=== PATIENT | male | born 1990 | race Two or more races ===

== ENCOUNTER → 2020-08-22 13:16 | Outpatient (BNVA) | payer OTHER, SELFPAY | PROVIDERS: PCP Internal Medicine; Referring Provider Nurse Practitioner Family; Visit Provider Internal Medicine Endocrinology, Diabetes & Metabolism | DX: E89.0 Postprocedural hypothyroidism (principal); E05.00 Thyrotoxicosis with diffuse goiter without thyrotoxic crisis or storm; E21.3 Hyperparathyroidism, unspecified; E66.9 Obesity, unspecified; Z68.34 Body mass index [BMI] 34.0-34.9, adult; L83 Acanthosis nigricans; Z79.899 Other long term (current) drug therapy | CPT/HCPCS: 99212 ==

== ENCOUNTER 2020-09-01 09:42 | Outpatient (REF) | payer OTHER, SELFPAY ==
--- NOTE | 2020-09-01 | XR_ITS ---
EXAMINATION: XR CHEST CLINICAL INFORMATION: Renal cancer. COMPARISON: None TECHNIQUE: Frontal view of the chest was obtained. FINDINGS: No significant abnormality is noted involving the heart, lungs, mediastinum, bony thorax or soft tissues. XR/XR chest 1V IMPRESSION: Unremarkable chest exam.
[2020-09-01 11:37] LABS: Alanine Aminotransferase 99 U/L (0-40); Albumin Level 4.8 g/dL (3.5-5.0); Alkaline Phosphatase 55 U/L (39-117); Anion Gap 13 (12-20); Aspartate Amino Transferase 50 U/L (5-37); Bilirubin Total 1.8 mg/dL (0.0-1.0); Blood Urea Nitrogen 17 mg/dL (9-16); Calcium 9.6 mg/dL (8.4-10.2); Carbon Dioxide 28 mmol/L (22-29); Chloride 102 mmol/L (96-108); Estimated Glomerular Filt Rate > 60; Glucose Fasting 94 mg/dL (60-99); Magnesium 2.1 mg/dL (1.6-2.6); Potassium 4.5 mmol/l (3.3-5.1); Sodium 138 mmol/L (135-145); Total Protein 8.4 g/dL (6.5-8.0)
[2020-09-01 11:49] LABS: Free T4 (Free Thyroxine) 0.92 ng/dL (0.71-1.85); Thyroid Stimulating Hormone 4.27 uIU/mL (0.32-4.0); Vitamin D 25-OH Total 11.1 ng/mL (>30)
[2020-09-04 13:37] LABS: Calcium, Ionized 5.2 mg/dL (4.8-5.6)
[2020-09-04 16:22] LABS: PTHI 54 pg/mL (14-64)
[2020-09-04 23:45] LABS: VITAMIN D (1,25 OH) D3 60 pg/mL; Vit D (1,25-Dihydroxy) Total 60 pg/mL (18-72); Vitamin D (1,25 OH) D2 <8 pg/mL
[2020-09-05 14:02] LABS: Alkaline Phosphatase Bone 11.9 mcg/L (7.7-21.3)
== END 2020-09-01 09:43 | disposition home or self-care (01) ==
LOC: HO.HMGCLDS 09:42
PROVIDERS: Absent Provider Urology; PCP Nurse Practitioner Family; Visit Provider Internal Medicine Endocrinology, Diabetes & Metabolism
DX: C64.9 Malignant neoplasm of unspecified kidney, except renal pelvis (principal)
CPT/HCPCS: 71045; 80053; 82306; 82330; 82652; 83735; 83970; 84075; 84100; 84439; 84443

== ENCOUNTER 2020-09-04 | Outpatient (REF) | payer OTHER, SELFPAY ==
[2020-09-04 12:26] LABS: Creatinine, mg/dL 208.77
[2020-09-04 13:58] LABS: Creatinine, 24Hr Urine 1.7 G/Day (1.0-2.0); Total Volume 24 Hour Urine 825 mL
[2020-09-05 17:12] LABS: Calcium, 24 Hr Urine 111 mg/24 h; Calcium/Creatinine Ratio 65 mg/g creat (30-210); Creatinine 24Hr Urine 1.71 g/24 h (0.50-2.15)
== END 2020-09-04 00:01 | disposition home or self-care (01) ==
LOC: HO.HMGCLNP
PROVIDERS: Visit Provider Internal Medicine Endocrinology, Diabetes & Metabolism
DX: E21.3 Hyperparathyroidism, unspecified (principal)
CPT/HCPCS: 82340; 82570

== ENCOUNTER → 2020-10-11 12:40 | Outpatient (BNVA) | payer OTHER, SELFPAY | PROVIDERS: PCP Nurse Practitioner Family; Visit Provider Physician Assistant | DX: Z76.89 Persons encountering health services in other specified circumstances (principal) ==

== ENCOUNTER 2020-10-30 09:03 | Outpatient (REF) | payer OTHER, SELFPAY ==
--- NOTE | 2020-10-30 09:09 | US_ITS ---
EXAMINATION: US COMPLETE ABDOMEN WITH LIVER ELASTOGRAPHY CLINICAL INFORMATION: Abnormal liver function tests. COMPARISON: CT abdomen 06/13/2016 and ultrasound abdomen 06/06/2020 TECHNIQUE: Real-time imaging of the abdominal viscera. Noninvasive ultrasound liver fibrosis assessment is performed using Jaylene ElastPQ point quantification shear wave elastography (pSWE) with a 5 MHz transducer. Multiple elastography samples are obtained. FINDINGS: PANCREAS: Normal. The visualized pancreatic head and body are normal in appearance. The remainder of the pancreas is obscured from visualization by the overlying bowel gas. ABDOMINAL AORTA: The proximal, middle, and distal aortic segments are normal in caliber. INFERIOR VENA CAVA: Visualized portions are normal. LIVER: Normal. The liver demonstrates normal size, contour and echogenicity. No focal lesion or intrahepatic biliary duct dilatation. The right lobe measures 20.7 cm in length. The left lobe measures 15.0 cm in length. There is normal hepatopedal flow seen in the portal vein on Doppler exam. Shear wave elastography provides a median stiffness of 1.15 m/s (reference: normal median stiffness is 0.81 - 1.22 m/s). The IQR/median stiffness to assess sampling precision is 0.30 (reference: optimal IQR/median stiffness is under 0.3). GALLBLADDER: The gallbladder is physiologically distended without evidence of stones, polyps, wall thickening or pericholecystic fluid. There is echogenic gallbladder sludge seen. COMMON BILE DUCT: Normal in caliber measuring 0.31 cm in diameter. RIGHT KIDNEY: Normal. No hydronephrosis. No renal calculi or focal parenchymal lesions. The kidney measures 11.4 cm in maximum dimension. LEFT KIDNEY: Status post left upper pole nephrectomy. No hydronephrosis. No renal calculi or focal parenchymal lesions. The kidney measures 8.5 cm in maximum dimension. SPLEEN: Normal. The spleen measures 11.0 cm in maximum dimension. FREE FLUID: None. US/US abdomen comp w elastography IMPRESSION: 1. Slightly echogenic gallbladder sludge but no echogenic stones or wall thickening. 2. Left upper lobe pole nephrectomy changes with a small left kidney. The rest of the abdominal ultrasound is unremarkable. 3. Elastography: Liver elastography measurements are within normal (METAVIR Stage F0).
== END 2020-10-30 09:04 | disposition home or self-care (01) ==
LOC: HO.US 09:03
PROVIDERS: PCP Nurse Practitioner Family; Visit Provider Physician Assistant
DX: R94.5 Abnormal results of liver function studies (principal)
CPT/HCPCS: 76705; 76981

== ENCOUNTER → 2020-12-19 14:53 | Outpatient (BNVA) | payer OTHER, SELFPAY | PROVIDERS: PCP Nurse Practitioner Family; Visit Provider Physician Assistant ==

== ENCOUNTER → 2020-12-20 08:34 | Outpatient (BNVA) | payer OTHER, SELFPAY | PROVIDERS: PCP Nurse Practitioner Family; Visit Provider Internal Medicine Endocrinology, Diabetes & Metabolism | DX: E79.0 Hyperuricemia without signs of inflammatory arthritis and tophaceous disease (principal); E21.3 Hyperparathyroidism, unspecified; E66.9 Obesity, unspecified; Z68.35 Body mass index [BMI] 35.0-35.9, adult; E55.9 Vitamin D deficiency, unspecified; Z71.3 Dietary counseling and surveillance | CPT/HCPCS: 99212 ==

== ENCOUNTER → 2021-01-11 13:45 | Outpatient (BNVA) | payer OTHER, SELFPAY | PROVIDERS: PCP Nurse Practitioner Family; Visit Provider Physician Assistant ==

== ENCOUNTER 2021-10-17 08:39 | Outpatient (REF) | payer OTHER, SELFPAY ==
[2021-10-17 08:58] LABS: Binax Internal Control QC Valid; Binax Now Covid-19 Ag Positive (Negative)
== END 2021-10-17 08:40 | disposition home or self-care (01) ==
LOC: HO.HMGCLDS 08:39
PROVIDERS: Visit Provider Internal Medicine
DX: Z13.89 Encounter for screening for other disorder (principal)

== ENCOUNTER 2021-12-19 06:31 | Outpatient (REF) | payer OTHER, SELFPAY ==
[2021-12-19 12:48] LABS: Free T4 (Free Thyroxine) 0.87 ng/dL (0.71-1.85); Thyroid Stimulating Hormone 24.13 uIU/mL (0.32-4.0)
== END 2021-12-19 06:32 | disposition home or self-care (01) ==
LOC: HO.HMGCLDS 06:31
PROVIDERS: Visit Provider Internal Medicine Endocrinology, Diabetes & Metabolism
DX: E89.0 Postprocedural hypothyroidism (principal)
CPT/HCPCS: 36415; 84439; 84443

== ENCOUNTER → 2021-12-20 08:04 | Outpatient (BNVA) | payer OTHER, SELFPAY | PROVIDERS: PCP Nurse Practitioner Family; Visit Provider Internal Medicine Endocrinology, Diabetes & Metabolism | DX: E89.0 Postprocedural hypothyroidism (principal) | CPT/HCPCS: 99212 ==

== ENCOUNTER 2022-03-26 15:06 | Outpatient (REF) | payer OTHER, SELFPAY ==
--- NOTE | ~2022-03-26 | XR_ITS ---
EXAMINATION: XR CHEST CLINICAL INFORMATION: Cough COMPARISON: Previous chest x-ray August 2020 TECHNIQUE: 2 views of the chest were obtained. FINDINGS: No significant abnormality is noted involving the heart, lungs, mediastinum, bony thorax or soft tissues. XR/XR chest 2V IMPRESSION: Unremarkable examination.
== END 2022-03-26 15:07 | disposition home or self-care (01) ==
LOC: HO.HMGCX 15:06
PROVIDERS: PCP Nurse Practitioner Family; Visit Provider Nurse Practitioner Family
DX: R05.9 Cough, unspecified (principal)
CPT/HCPCS: 71046

== ENCOUNTER 2022-07-20 08:49 | Outpatient (REF) | payer OTHER, SELFPAY ==
[2022-07-20 11:33] LABS: MANUAL DIFF FLAG NO
[2022-07-20 11:45] LABS: Basophils Percent Auto 0.5 % (0-2); Eosinophils Absolute Auto 0.3 X10*3/uL (0.0-0.4); Eosinophils Percent Auto 4.7 % (0-4); Hematocrit 44.3 % (42.0-52.0); Hemoglobin 15.5 g/dl (14.0-18.0); Imm Gran Abs Auto 0.04 X10*3/uL (0.00-0.03); Imm Gran Pct Auto 0.7 % (0.0-0.4); Lymphocytes Absolute Auto 2.5 X10*3/uL (1.2-4.9); Lymphocytes Percent Auto 41.5 % (20-40); Mean Corpuscular Hemoglobin 28.2 pg (27.0-33.0); Mean Corpuscular Volume 80.7 fL (80.0-98.0); Mean Platelet Volume 11.2 fL (9.4-12.4); Monocytes Absolute Auto 0.5 X10*3/uL (0.1-1.2); Monocytes Percent Auto 8.8 % (2-11); Neutrophils Absolute Auto 2.6 x10*3/uL (2.0-8.3); Neutrophils Percent Auto 43.8 % (45-73); Platelet Count 233 X10*3/uL (160-400); Red Blood Count 5.49 X10*6/uL (4.60-5.80); White Blood Count 5.9 X10*3/uL (4.8-10.8)
[2022-07-20 11:49] LABS: Appearance Urine Clear; Color Urine Yellow; Glucose Urine UA 100 mg/dL (Negative); Leukocyte Esterase Urine Negative (Negative); Nitrite Urine Negative (Negative); Urine Blood Negative (Negative); Urine Ketones Negative (Negative); Urine Protein Trace mg/dL (Neg-Trace)
[2022-07-20 12:40] LABS: Free T4 (Free Thyroxine) 1.05 ng/dL (0.71-1.85); Thyroid Stimulating Hormone 1.05 uIU/mL (0.32-4.0)
[2022-07-20 12:41] LABS: Alanine Aminotransferase 165 U/L (0-40); Albumin Level 4.8 g/dL (3.5-5.0); Alkaline Phosphatase 72 U/L (39-117); Anion Gap 19 (12-20); Aspartate Amino Transferase 94 U/L (5-37); Bilirubin Total 1.4 mg/dL (0.0-1.0); Blood Urea Nitrogen 13 mg/dL (9-16); Calcium 9.7 mg/dL (8.4-10.2); Carbon Dioxide 24 mmol/L (22-29); Chloride 101 mmol/L (96-108); Cholesterol 235 mg/dL; Estimated Glomerular Filt Rate > 60; Glucose Fasting 158 mg/dL (60-99); HDL Cholesterol 33 mg/dL; LDL Cholesterol Calculated 140 mg/dl; Potassium 4.5 mmol/L (3.3-5.1); Sodium 139 mmol/L (135-145); Total Protein 8.4 g/dL (6.5-8.0); Triglycerides 313 mg/dL
== END 2022-07-20 08:50 | disposition home or self-care (01) ==
LOC: HO.HMGCLDS 08:49
PROVIDERS: Absent Provider Internal Medicine Endocrinology, Diabetes & Metabolism; PCP Nurse Practitioner Family; Visit Provider Nurse Practitioner Family
DX: Z00.00 Encounter for general adult medical examination without abnormal findings (principal); E89.0 Postprocedural hypothyroidism
CPT/HCPCS: 36415; 80053; 80061; 81003; 84439; 84443; 85025

== ENCOUNTER → 2022-07-23 16:32 | Outpatient (BNVA) | payer OTHER, SELFPAY | PROVIDERS: PCP Nurse Practitioner Family; Visit Provider Internal Medicine Endocrinology, Diabetes & Metabolism | DX: E89.0 Postprocedural hypothyroidism (principal) | CPT/HCPCS: 99212 ==

== ENCOUNTER 2022-08-15 09:08 | Outpatient (REF) | payer OTHER, SELFPAY ==
[2022-08-15 11:31] LABS: Estimated Average Glucose 126 mg/dL
[2022-08-15 11:48] LABS: Alanine Aminotransferase 161 U/L (0-40); Albumin Level 4.8 g/dL (3.5-5.0); Alkaline Phosphatase 64 U/L (39-117); Anion Gap 13 (12-20); Aspartate Amino Transferase 86 U/L (5-37); Bilirubin Total 1.7 mg/dL (0.0-1.0); Blood Urea Nitrogen 13 mg/dL (9-16); Calcium 9.9 mg/dL (8.4-10.2); Carbon Dioxide 27 mmol/L (22-29); Chloride 105 mmol/L (96-108); Estimated Glomerular Filt Rate > 60; Glucose Fasting 115 mg/dL (60-99); Potassium 4.4 mmol/L (3.3-5.1); Sodium 141 mmol/L (135-145); Total Protein 8.4 g/dL (6.5-8.0)
[2022-08-16 09:14] LABS: HBS Num1 90.67 mIU/mL (0-7.99); HBc Num1 0.09 S/CO (0.00-0.79); HBsAGNum1 0.15 S/CO (0.00-0.99); Hepatitis A Antibody IgM 0.17 Index (0-0.79); Hepatitis B Core Antibody Nonreactive (Nonreactive); Hepatitis B Surface Antigen Negative (Negative); ~HepC Num1 0.23 S/CO (0.00-0.79); ~Hepatitis A Antibody IgM Nonreactive (Nonreactive); ~Hepatitis B Surface Antibody REACTIVE (Nonreactive); ~Hepatitis C Antibody Nonreactive (Nonreactive)
== END 2022-08-15 09:09 | disposition home or self-care (01) ==
LOC: HO.HMGCLDS 09:08
PROVIDERS: PCP Nurse Practitioner Family; Visit Provider Nurse Practitioner Family
DX: R73.01 Impaired fasting glucose (principal); R94.5 Abnormal results of liver function studies
CPT/HCPCS: 36415; 80053; 83036; 86704; 86706; 86709; 86803; 87340

== ENCOUNTER 2022-09-24 17:13 | Outpatient (REF) | payer OTHER, SELFPAY ==
[2022-09-24 18:05] LABS: Influenza A PCR NEGATIVE (Negative); Influenza B PCR NEGATIVE (Negative); Resp Syncy Virus RNA Qual PCR NEGATIVE (Negative); SARS COV2 PCR INHOUSE NEGATIVE (Negative)
== END 2022-09-24 17:14 | disposition home or self-care (01) ==
LOC: HO.LNP 17:13
PROVIDERS: Visit Provider Nurse Practitioner Family
DX: R09.89 Other specified symptoms and signs involving the circulatory and respiratory systems (principal); Z20.822 Contact with and (suspected) exposure to COVID-19
CPT/HCPCS: 0241U

== ENCOUNTER 2022-09-25 14:04 | Outpatient (REF) | payer OTHER, SELFPAY ==
[2022-09-25 15:05] LABS: Influenza A PCR NEGATIVE (Negative); Influenza B PCR NEGATIVE (Negative); Resp Syncy Virus RNA Qual PCR NEGATIVE (Negative); SARS COV2 PCR INHOUSE NEGATIVE (Negative)
== END 2022-09-25 14:05 | disposition home or self-care (01) ==
LOC: HO.LNP 14:04
PROVIDERS: Visit Provider Nurse Practitioner Family
DX: Z20.822 Contact with and (suspected) exposure to COVID-19 (principal); R05.1 Acute cough
CPT/HCPCS: 0241U

== ENCOUNTER 2022-10-15 09:59 | Outpatient (REF) | payer OTHER, SELFPAY ==
--- NOTE | ~2022-10-15 | US_ITS ---
EXAMINATION: US ABDOMEN COMPLETE CLINICAL INFORMATION: Abnormal results of liver function studies. COMPARISON: US abdomen complete with liver elastography 10/30/2020. Ultrasound abdomen complete 06/06/2020. CT abdomen and pelvis without and with contrast 08/11/2017. X-ray abdomen KUB 10/17/2016 and 07/25/2016. MRI abdomen without and with contrast 05/22/2015. TECHNIQUE: Real-time imaging of the abdominal viscera. FINDINGS: PANCREAS: Normal. ABDOMINAL AORTA: The proximal, mid, and distal segments are normal in caliber. INFERIOR VENA CAVA: Visualized portions are normal. LIVER: The liver is normal in size. The liver contour is normal. There is diffuse echogenic liver with areas of focal fatty sparing No focal hepatic lesion. There is no intrahepatic biliary duct dilatation seen. GALLBLADDER: Gallbladder wall measures 0.14 cm.. The gallbladder is physiologically distended without evidence of stones, sludge, polyps, wall thickening or pericholecystic fluid. COMMON BILE DUCT: Normal in caliber measuring 0.2 cm in diameter. RIGHT KIDNEY: Normal. No hydronephrosis. No renal calculi or focal parenchymal lesions. The kidney measures 11.7 cm in maximum dimension. LEFT KIDNEY: Status post left upper partial left nephrectomy. No hydronephrosis. No renal calculi or focal parenchymal lesions. The kidney measures 9.4 cm in maximum dimension. SPLEEN: Normal. The spleen measures 11.9 cm in maximum dimension. FREE FLUID: None. US/US abdomen complete IMPRESSION: Mild hepatic steatosis without focal lesion. Left upper partial nephrectomy. Rest of the abdominal ultrasound is unremarkable.
== END 2022-10-15 10:00 | disposition home or self-care (01) ==
LOC: HO.HMGCX 09:59
PROVIDERS: PCP Nurse Practitioner Family; Visit Provider Nurse Practitioner Family
DX: R94.5 Abnormal results of liver function studies (principal)
CPT/HCPCS: 76700

== ENCOUNTER 2023-01-21 16:04 | Outpatient (REF) | payer OTHER, SELFPAY ==
--- NOTE | ~2023-01-21 | US_ITS ---
EXAMINATION: US RETROPERITONEAL LIMITED (RENAL ONLY) CLINICAL INFORMATION: Flank pain.. COMPARISON: None available. TECHNIQUE: Ultrasound along with color Doppler imaging and spectral analysis was performed of the kidneys. FINDINGS: RIGHT KIDNEY: 10.5 x 6.0 x 5.2 cm (SAG x AP x TRV). The kidney appears unremarkable in size, contour, and echogenicity. Renal cortical thickness is normal. No calculi or focal parenchymal lesion appreciated. No hydronephrosis. The technologist ojeda a right lower pole structure which probably represents normal anatomic tissue. LEFT KIDNEY: 8.9 x 5.0 x 4.9 cm (SAG x AP x TRV). The appears unremarkable in size, contour, and echogenicity. Renal cortical thickness is normal. No calculi or focal parenchymal lesion appreciated. No hydronephrosis. US/US renal BI IMPRESSION: Normal renal ultrasound examination.
== END 2023-01-21 16:05 | disposition home or self-care (01) ==
LOC: HO.US 16:04
PROVIDERS: PCP Nurse Practitioner Family; Visit Provider Nurse Practitioner Family
DX: R10.9 Unspecified abdominal pain (principal)
CPT/HCPCS: 76775

== ENCOUNTER 2023-05-24 10:18 | Outpatient (AMB) | payer OTHER, SELFPAY ==
--- NOTE | 2023-05-24 10:35 | AM.OFFWIN_ITS ---
Intake Vital Signs 05/24/23 10:41 Height 5 ft 6 in Weight 206 lb BMI 33.2 BP 130/80 Blood Pressure Location Rt brachial Position Sitting Pulse 62 Pulse Source Pulse Oximeter Temp 97.8 F Temp Source Temporal Artery Scan Pulse Oximetry (%) 98 Intake Visit Reasons: EP RT hand pain Intake Note: pt is here c/o r/t hand pain denies injury Patient Tobacco Use Status: Never used Tobacco Allergies Sulfa (Sulfonamide Antibiotics) [SULFA(SULFONAMIDE ANTIBIOTICS)] Allergy (Unknown, Verified 05/24/23 10:42) UNKNOWN, Rash, hives Do you need a note to return to daycare/school/sports/work: No HPI EP RT hand pain HPI Details Patient is a 32-year-old male comes to the walk-in clinic complaining of right hand pain sensation radiating to the right digits with tingling. He states that he repeatedly shakes his hand at night, and has started to wear an jtlo-iob-[id number] splint that had temporarily relieved symptoms if they have persisted. Does repetitively carry heavy objects with hand. He denies fall or acute trauma. Some weakness due to the pain. He states that he reported his symptoms to PCP who will be following up with him, but he wanted to be seen in the meantime. [facility] Medical History Abnormal liver function tests Fatty liver GERD (gastroesophageal reflux disease) Hyperparathyroidism Obesity Postablative hypothyroidism Vitamin D deficiency Surgical History H/O radioactive iodine thyroid ablation Hx of partial nephrectomy Family History Father Diabetes mellitus HTN (hypertension) Mother HTN (hypertension) Hyperlipidemia Maternal Grandmother Hypothyroidism Social History Household Members: Spouse and Children Household Members Other:: baby due in january Housing: House Alcohol intake: never Patient Tobacco Use Status: Never used Tobacco e-Cigarette/Vaping Use: Never Used Second Hand Smoke Exposure: No Current occupational status: employed Current occupation: [employer] Current occupational exposures/hazards: No Cognitive needs: No Hearing needs: No Vision needs: No Review of Systems Const All systems reviewed & are unremarkable except as noted in HPI and below Physical Exam Vital Signs: Last Vital Signs Temp 97.8 F 05/24/23 10:41 Pulse 62 05/24/23 10:41 BP 130/80 05/24/23 10:41 Pulse Ox 98 05/24/23 10:41 BMI result Body Mass Index 33.2 Const General: cooperative, healthy appearing, comfortable, no acute distress, alert, awake, Physically active and well groomed; No anxious, diaphoretic, ill appearing, intoxicated appearing, poor hygiene or tired appearing Nutritional Appearance: average body habitus Limitations: no limitations Resp Effort & Inspection: normal respiratory effort Cardio Rate: regular rate Skin Other: Good color, warm and dry Extrem Right upper extremity: full ROM, normal capillary refill, edema (Some fullness to the thenar eminence and digits) and wrist (Tenderness throughout the anterior wrist area) Details: normal ROM, radial pulse present and ulnar pulse present; Tinel's positive and Phalen's positive; no cyanosis Psych Appearance: grossly normal Mental Status: mental status grossly normal Speech and movement: Normal speech and movement present Affect: normal affect Attitude: cooperative Thought process: Normal thought process present Insight: Good insight present (Psych) Judgement: Good judgement present (Psych) Assessment & Plan Assessment & Plan (1) Hand pain, right: Code(s): M79.641 - Pain in right hand Plan: Patient with repetitive use history to the right hand due to work duties, possibly developing carpal tunnel syndrome. Positive flick test, Tinel's and Phalen's tests. Plain film x-ray today unremarkable for cautious injury, some soft tissue swelling apparent. Patient fitted for a thumb spica splint and he had some immediate relief to symptoms. We discussed OT evaluation and treatment, as well as custom splinting for a washable splint. He should trial resting from repetitive use of the right hand and wear splint at for the next few weeks. I also wrote him a course of naproxen to help with the swelling. Orders: Orders XR hand RT min 3V 05/24/23 M79.641 - Pain in right hand OT Evaluation and Treatment 05/24/23 M79.641 - Pain in right hand Medications: New naproxen 500 mg PO BID PRN 30 tabs 0RF pain 14 days Coding Level of Care Code Est Pt Level 4 (46550) Diagnoses Hand pain, right M79.648
[2023-05-24 10:41] VITALS: BP 130/80; PULSE 62; TEMP 36.6; O2SAT 98; BMI 33.2
--- NOTE | 2023-05-24 11:00 | AM.OFFWIN_ITS ---
Intake Vital Signs 05/24/23 10:41 Height 5 ft 6 in Weight 206 lb BMI 33.2 BP 130/80 Blood Pressure Location Rt brachial Position Sitting Pulse 62 Pulse Source Pulse Oximeter Temp 97.8 F Temp Source Temporal Artery Scan Pulse Oximetry (%) 98 Intake Visit Reasons: EP RT hand pain Intake Note: Patient Tobacco Use Status: Never used Tobacco Allergies Sulfa (Sulfonamide Antibiotics) [SULFA(SULFONAMIDE ANTIBIOTICS)] Allergy (Unknown, Verified 05/24/23 10:42) UNKNOWN, Rash, hives HPI EP RT hand pain HPI Details Patient is a 32-year-old male who comes to the walk-in clinic complaining of pain to his right hand, specifically the base of his thumb and radial aspect of his wrist pain he states that he has some numbness and tingling to the digits, mostly to the thumb and 1st finger as well as the pinky finger. This is been going on for the last few weeks. 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 He denies acute trauma. He bought an aumb-qsk-pmjctiz splint that has been helping with pain the last few nights, but last night he states that he was in severe pain, and was shaking the hand repetitively to relieve symptoms which did not help. He reported his symptoms to PCP who advised the splint wearing at night, as well as a referral to Ortho. Apparently patient is in agreement with this, however wanted to be seen to see if anything could be done in the meantime. No coolness reported, weakness Reviewed past medical history with the patient [facility] Medical History Abnormal liver function tests Fatty liver GERD (gastroesophageal reflux disease) Hyperparathyroidism Obesity Postablative hypothyroidism Vitamin D deficiency Surgical History H/O radioactive iodine thyroid ablation Hx of partial nephrectomy Family History Father Diabetes mellitus HTN (hypertension) Mother HTN (hypertension) Hyperlipidemia Maternal Grandmother Hypothyroidism Social History Household Members: Spouse and Children Household Members Other:: baby due in january Housing: House Alcohol intake: never Patient Tobacco Use Status: Never used Tobacco e-Cigarette/Vaping Use: Never Used Second Hand Smoke Exposure: No Current occupational status: employed Current occupation: [employer] Current occupational exposures/hazards: No Cognitive needs: No Hearing needs: No Vision needs: No Review of Systems Const All systems reviewed & are unremarkable except as noted in HPI and below Physical Exam Vital Signs: Last Vital Signs Temp 97.8 F 05/24/23 10:41 Pulse 62 05/24/23 10:41 BP 130/80 05/24/23 10:41 Pulse Ox 98 05/24/23 10:41 BMI result Body Mass Index 33.2 Extrem Right upper extremity: full ROM, normal capillary refill, edema (Thenar eminence), wrist (Mild tenderness radial aspect of the wrist) and Extremity exam: right hand (Positive flick test, Phalen's and Tinel's) Details: abnormal to inspection and neuromotor exam normal; no cyanosis Left upper extremity: hand Details: vascular exam Details: radial pulse present, ulnar pulse present and normal capillary refill; not cool and no cyanosis; no unusual warmth, no lacerations and no ecchymosis Assessment & Plan Assessment & Plan (1) Repetitive strain injury of right hand: Code(s): S66.911A - Strain of unspecified muscle, fascia and tendon at wrist and hand level, right hand, initial encounter; X50.3XXA - Overexertion from repetitive movements, initial encounter Plan Patient with likely repetitive use injury to the right thumb and index finger area especially, causing carpal tunnel syndrome like symptoms. 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 He did have some limited relief with wearing an ogbi-uru-klnpvmk splint at night for a few days, but as of last night his symptoms were severe and he had no relief from pain. He admits to flick test at night, and was positive for Phalen's and Tinel's test in the office today. I fitted him with a thumb spica splint that did give him some relief, and we discussed naproxen for anti-inflammatory use. He should elevate the arm when able, and can ice the wrist and thumb area every few hours until his swelling starts to resolve. I wrote him a work note to restrict repetitive pinching and grasping with his thumb. He should wear his splint at work, and at night if able to tolerate it. I also will refer him to OT for custom splinting, and therapy. Apparently he already talked with PCP Yordan Romano who will be referring him to Ortho. Orders: Orders XR hand RT min 3V Today M79.641 - Pain in right hand OT Evaluation and Treatment Today M79.641 - Pain in right hand Medications: New naproxen 500 mg PO BID 14 days PRN 30 tabs 0RF pain Coding Level of Care Code Est Pt Level 4 (42542) Diagnoses Repetitive strain injury of right hand S66.911A; X50.3XXA
== END 2023-05-24 12:17 | disposition home or self-care (01) ==
PROVIDERS: PCP Nurse Practitioner Family; Visit Provider Physician Assistant Medical
DX: S66.911A Strain of unspecified muscle, fascia and tendon at wrist and hand level, right hand, initial encounter (principal); X50.3XXA Overexertion from repetitive movements, initial encounter; M79.641 Pain in right hand
CPT/HCPCS: 99051; 99214

== ENCOUNTER 2023-05-24 11:12 | Outpatient (REF) | payer OTHER, SELFPAY ==
--- NOTE | ~2023-05-24 | XR_ITS ---
EXAMINATION: XR HAND, RIGHT CLINICAL INFORMATION: Repetitive use injury, pain and tingling in the first digit. COMPARISON: None available. TECHNIQUE: PA, lateral, and oblique views of the right hand. FINDINGS: No acute fracture or dislocation. Probable old healed fifth metacarpal fracture. The joint spaces are unremarkable. The carpal bones are normally aligned. The distal radius and ulna are intact. Mild soft tissue swelling is seen. XR/XR hand RT min 3V IMPRESSION: Mild soft tissue swelling without acute underlying osseous abnormality. Probable old healed fifth metacarpal fracture. Correlate with physical exam and trauma history.
== END 2023-05-24 11:13 | disposition home or self-care (01) ==
LOC: HO.HMGCX 11:12
PROVIDERS: PCP Nurse Practitioner Family; Visit Provider Physician Assistant Medical
DX: M79.641 Pain in right hand (principal)
CPT/HCPCS: 73130

== ENCOUNTER 2023-06-06 09:56 | Outpatient (REF) | payer OTHER, SELFPAY ==
--- NOTE | 2023-06-06 09:58 | EMG_ITS ---
Chief complaint: Right hand numbness Reason for referral: Evaluate for Carpal Tunnel Syndrome Referred by: Yordan Romano JET HAND[employer]ER Procedure done: Right upper extremity NCS/EMG Precautions and/or limitations: None The limb temperature was monitored continuously and remained between 32-36 degrees C during the performance of the NCS. Nerve Conduction Studies Anti Sensory Summary Table ?Stim Site NR Onset (ms) Norm Onset (ms) Peak (ms) Norm Peak (ms) O-P Amp (?V) Norm O-P Amp Site1 Site2 Delta-0 (ms) Dist (cm) Michi (m/s) Norm Michi (m/s) Right Median Anti Sensory (2nd Digit) Wrist ? 4.9 5.4 <3.6 11.8 >10 Wrist 2nd Digit 4.9 14.0 29 Right Ulnar Anti Sensory (5th Digit) Wrist ? 3.1 3.7 <3.7 16.5 >15.0 Wrist 5th Digit 3.1 14.0 45 Motor Summary Table ?Stim Site NR Onset (ms) Norm Onset (ms) O-P Amp (mV) Norm O-P Amp iAmp (mV) Amp (1st) (%) Site1 Site2 Delta-0 (ms) Dist (cm) Michi (m/s) Norm Michi (m/s) Right Median Motor (Abd Poll Brev) Wrist ? 5.5 <3.9 5.3 >4.5 6.6 100.0 Elbow Wrist 3.7 21.0 57 >45 Elbow ? 9.2 3.3 4.5 62.3 Right Ulnar Motor (Abd Dig Minimi) Wrist ? 2.7 <3.0 6.8 >5 8.8 100.0 B Elbow Wrist 3.9 20.5 53 >45 B Elbow ? 6.6 8.0 10.5 117.6 A Elbow B Elbow 1.4 10.0 71 >45 A Elbow ? 8.0 7.4 9.7 108.8 EMG ?Side Muscle Nerve Root Ins Act Fibs Psw Amp Dur Poly Recrt Int Pat Comment Right 1stDorInt Ulnar C8-T1 Nml Nml Nml Nml Nml 0 Nml Complete Right FlexCarRad Median C6-7 Nml Nml Nml Nml Nml 0 Nml Complete Right Biceps Musculocut C5-6 Nml Nml Nml Nml Nml 0 Nml Complete Right Triceps Radial C6-7-8 Nml Nml Nml Nml Nml 0 Nml Complete Right Deltoid Axillary C5-6 Nml Nml Nml Nml Nml 0 Nml Complete FINDINGS: Right median motor nerve showed prolonged distal latency, normal amplitude and normal conduction velocity. Right median sensory showed prolonged peak latency. All other nerves tested were within normal. Concentric needle EMG was performed in selected muscles of the right upper extremity. Study did not reveal signs of electric abnormalities as shown in the table below. IMPRESSION: 1. This is an abnormal study. 2. 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 3. There is no electrodiagnostic evidence for ulnar neuropathy, brachial plexopathy, or cervical radiculopathy. Thank you for your kind referral. Kalyn Rogers MD, JOSE E Board Certified, [place] [employer] and [employer] (ABPMR) Board Certified, [place] [employer] Electro[employer] (ABEM) Codin [id number] MTDD
== END 2023-06-06 09:57 | disposition home or self-care (01) ==
LOC: HO.NEURO 09:56
PROVIDERS: PCP Nurse Practitioner Family; Visit Provider Nurse Practitioner Family
DX: M79.641 Pain in right hand (principal); M79.642 Pain in left hand; R20.0 Anesthesia of skin
CPT/HCPCS: 95886; 95908

== ENCOUNTER → 2023-06-06 09:58 | Outpatient (BNV) | payer OTHER, SELFPAY | PROVIDERS: PCP Nurse Practitioner Family; Visit Provider Physical Medicine & Rehabilitation | DX: M79.641 Pain in right hand (principal); M79.642 Pain in left hand; R20.0 Anesthesia of skin | CPT/HCPCS: 95886; 95908 ==

== ENCOUNTER 2023-06-25 13:57 | Outpatient (RCR) | payer OTHER, SELFPAY ==
--- NOTE | 2023-06-25 16:10 | MHC.OT.EP ---
[address] [phone] Occupational Therapy Plan of Care Patient Name: Rosendo Cotton Date of Evaluation: 06/25/23 Diagnosis: Right hand pain Pain Location: 4-5 right hand . Achy. Pain Score: 4 Pain Scale Used: Numeric (0 - 10) Aggravating Factors: Grabbing with right hand , worsens at night Alleviating Factors: Limiting use.. Ice packs. Wrist immobilzer Assessment: Pt is a 33 yo male with a gradual onset of worsening right hand pain and paresthesia. Pt symptoms worsening at night. EMG on 06/06/23 reveals moderate to severe median nerve compression at the right carpal wrist. I spoke with Kellee from Dr Romano's office and they will make a referral to Dr Walker with the patients approval. Pt has a pre tiff wrist splint he states helps some with symptoms and he is on light duty avoiding use of his right dominant hand. At this time pt will benefit from education on self management techniques presented today and continue with the current plan for light duty and evaluation by Dr Kahn's I do not anticipate a significant benefit from continued OT at this time. 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 Electronically Signed By: Salena Salinas OT CHT CLT Please Sign and return to therapist. Thank you once again for your referral.
== END 2023-06-25 16:11 | disposition home or self-care (01) ==
LOC: HO.OT 13:57
PROVIDERS: PCP Nurse Practitioner Family; Visit Provider Physician Assistant Medical
DX: M79.641 Pain in right hand (principal)
CPT/HCPCS: 97110; 97165

== ENCOUNTER 2023-07-30 11:28 | Outpatient (AMB) | payer OTHER, SELFPAY ==
[2023-07-30 11:30] VITALS: BMI 33.2
--- NOTE | 2023-07-30 11:30 | A.OFFVIS_ITS ---
Intake Vital Signs 07/30/23 11:30 Height 5 ft 6 in Weight 206 lb BMI 33.2 Intake Visit Reasons: OV, B/L hand pain, EMG complete 06/06/23 Intake Note: Rosendo 33 yr old male who is right hand dominant, present today for bilateral hand numbness and tingling. Patient reports that he has tingling of the palm and tge thumb, index and some of the ring finger. These symptoms have been present for a few months months. EMG Done. . 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 He complains of numbness and tingling in the median nerve distribution of his right hand. Symptoms intermittent, but daily, worse at night. He has a night splint he wears occasionally. He denies numbness or tingling in the small finger. He also complains of intermittent aching in the volar aspect of his wrist. He has a hx of renal cancer. PENDING SALE TO [facility] Medical History Abnormal liver function tests Fatty liver GERD (gastroesophageal reflux disease) Hyperparathyroidism Obesity Postablative hypothyroidism Vitamin D deficiency Surgical History H/O radioactive iodine thyroid ablation Hx of partial nephrectomy Family History Father Diabetes mellitus HTN (hypertension) Mother HTN (hypertension) Hyperlipidemia Maternal Grandmother Hypothyroidism Social History Household Members: Spouse and Children Household Members Other:: baby due in january Housing: House Alcohol intake: never Patient Tobacco Use Status: Never used Tobacco e-Cigarette/Vaping Use: Never Used Second Hand Smoke Exposure: No Current occupational status: employed Current occupation: [employer] Current occupational exposures/hazards: No Cognitive needs: No Hearing needs: No Vision needs: No Review of Systems Const All systems reviewed & are unremarkable except as noted in HPI and below Physical Exam Vital Signs: BMI result Body Mass Index 33.2 Const General: cooperative, healthy appearing and no acute distress Orientation/consciousness: patient oriented x3 HEENT Head: Yes normocephalic and Yes atraumatic Eyes EOM: EOMs intact bilaterally Resp Effort & Inspection: normal respiratory effort and able to speak in complete sentences Cardio Jugular venous distension: no JVD Skin General skin exam: turgor normal Rashes: no rashes Neuro General: patient oriented x3 Extrem Other: Evaluation of Upper Extremity: The patient is alert, oriented, and in no acute distress Neuro: Median, Ulnar, Radial nerves motor and sensory intact and sensation is normal to the tips of all digits No thenar or intrinsic wasting. Vascular: Cap refill brisk ROM: He can make a fist and extend all his digits No locking or catching Skin: No lacerations or abrasions. General: No Ecchymosis. No Erythema or evidence of infection. Nerve Conduction Study: Done on right side only IMPRESSION: 1. This is an abnormal study. 2. There is electrodiagnostic evidence for right moderate-severe median omar ropathy at the wrists, consistent with carpal tunnel syndrome. 3. There is no electrodiagnostic evidence for ulnar neuropathy, brachial plexopathy, or cervical radiculopathy. Thank you for your kind referral. Kalyn Rogers MD, JOSE E 06/06/23 Radiographs: 3 views of the right hand from 05/24/23 were reviewed by me today in clinic. There is evidence of an old, healed 5th metacarpal fracture. Psych Appearance: grossly normal Affect: normal affect Attitude: cooperative Assessment & Plan Assessment & Plan (1) Carpal tunnel syndrome of right wrist: Code(s): G56.01 - Carpal tunnel syndrome, right upper limb (2) Renal cancer: Code(s): C64.9 - Malignant neoplasm of unspecified kidney, except renal pelvis Plan Assessment & Plan: 1. Right Carpal tunnel syndrome, moderate-severe Symptoms intermittent, but daily, worse at night I educated him about this condition I discussed operative and non-operative treatment options The patient would like to proceed with surgery The risks and benefits of operative treatment were discussed with the patient and the patient wishes to proceed with surgery. These risks include, but are not limited to risk of damage to blood vessels, nerves, tendons, infection, recurrence, incomplete relief of preoperative symptoms, persistent pain, possible need for further surgery and the risks associated with regional blocks and anesthesia. The plan is to take the patient to the operating room sometime in the next few weeks for the following procedures: 1. Right carpal tunnel release, under local All of the preoperative paperwork including the consent was filled out today. All the patient's questions were answered. The patient understands that they will be contacted by our mechanic/welder soon to schedule this procedure He denies Diabetes, blood thinners, asthma, heart, lung, kidney issues Scribed for Marii Walker MD by Mehrdad Jensen, medical information officer, on 07/30/23 at 11:45 AM, EST. Coding Level of Care Code New Pt Level 4 (92962) Diagnoses Carpal tunnel syndrome of right wrist G56.01 Renal cancer C64.9
== END 2023-07-30 11:57 | disposition home or self-care (01) ==
PROVIDERS: PCP Nurse Practitioner Family; Visit Provider Orthopaedic Surgery
DX: G56.01 Carpal tunnel syndrome, right upper limb (principal)
CPT/HCPCS: 99204

== ENCOUNTER → 2023-07-30 11:28 | Outpatient (BNVA) | payer OTHER, SELFPAY | PROVIDERS: PCP Nurse Practitioner Family; Visit Provider Orthopaedic Surgery | DX: G56.01 Carpal tunnel syndrome, right upper limb (principal); C64.9 Malignant neoplasm of unspecified kidney, except renal pelvis | CPT/HCPCS: 99202 ==

== ENCOUNTER 2023-08-05 11:06 | Outpatient (AMB) | payer OTHER, SELFPAY ==
--- NOTE | 2023-08-05 11:07 | A.OFFPC_ITS ---
Vital Signs 08/05/23 11:09 Height 5 ft 6 in Weight 213 lb BMI 34.4 BP 140/94 H Blood Pressure Location Lt brachial Position Sitting Pulse 74 Pulse Source Pulse Oximeter Pulse Oximetry (%) 97 Oxygen Delivery Method Room Air Intake Visit Reasons: PE Intake Note: Pt is here today for his PE Allergies Sulfa (Sulfonamide Antibiotics) [SULFA(SULFONAMIDE ANTIBIOTICS)] Allergy (Unknown, Verified 08/05/23 11:08) UNKNOWN, Rash, hives Medication List - Last Reconciled 08/05/23 by Yordan Romano, SURVEILLANCE SYSTEMS ANALYST- albuterol sulfate 90 mcg/actuation (ProAir HFA) 1 inh inhalation Q4-6H PRN Levoxyl (levothyroxine) 137 mcg PO DAILY NS naproxen 500 mg PO BID PRN 14 days omeprazole magnesium (Prilosec OTC) 20 mg PO DAILY Tobacco use date assessed: 08/05/23 Dental Screening Dental Screen Date: 08/05/23 Did you have a dental visit in the last 12 months?: No Was dental information given to patient?: Patient declined HPI PE HPI Details Pt is here for a PE. Will order labs. Pt has a ? submental mass vs adenopathy to his chin. Will order US. Pt's blood pressure is elevated today. Will have him monitor his BP at home and drop off readings in 3 weeks. Denies chest pain, shortness of breath, headache, dizzines, fevers, sore throat PFSH Medical History Abnormal liver function tests Fatty liver GERD (gastroesophageal reflux disease) Hyperparathyroidism Obesity Postablative hypothyroidism Vitamin D deficiency Surgical History H/O radioactive iodine thyroid ablation Hx of partial nephrectomy Family History Father Diabetes mellitus HTN (hypertension) Mother HTN (hypertension) Hyperlipidemia Maternal Grandmother Hypothyroidism Social History Household Members: Spouse and Children Household Members Other:: baby due in january Housing: House Alcohol intake: never Patient Tobacco Use Status: Never used Tobacco e-Cigarette/Vaping Use: Never Used Second Hand Smoke Exposure: No Current occupational status: employed Current occupation: [employer] Current occupational exposures/hazards: No Cognitive needs: No Hearing needs: No Vision needs: Yes Questionnaire Thrive Questionnaire Date Thrive assessed: 10/15/22 I am a: Patient What is your living situation today?: I have a steady place to live Within the past 12 months, did the food you bought not last and you didn't have the money to get more?: Never true Within the past 12 months, did you worry whether your food would run out before you got money to buy more?: Never true AUDIT C Alcohol Use Questionnaire (AUDIT-C) 1. How often do you have a drink containing alcohol?: Never 3. How often do you have six or more drinks on one occasion?: Never Total Score: 0 LEFTY-7 AMB Questionnaire LEFYT-7 Date LEFTY - 7 assessed: 10/15/22 Feeling nervous, anxious, or on edge: 1 = Several days Not being able to stop or control worryin = Several days Worrying too much about different things: 0 = Not at all Trouble relaxin = Several days Being so restless that it is hard to sit still: 0 = Not at all Becoming easily annoyed or irritable: 0 = Not at all Feeling afraid as if something awful might happen: 0 = Not at all Total LEFTY-7 score (0-4 normal; 5-9 mild; 10-14 moderate; 15-21 severe): 3 Source: Developed by Drs. Alan Murillo, Wilma Conrad, Emmanuel Lr and colleagues, with an educational guillaume from [employer]. Review of Systems Const Denies chills and Denies fever(s) Eyes Denies blurry vision ENT Denies vertigo, Denies dizziness and Denies sore throat Card Denies chest pain at rest, Denies chest pain with activity, Denies diaphoresis, Denies dyspnea and Denies dyspnea on exertion Resp Denies cough, Denies dyspnea, Denies dyspnea on exertion and Denies wheezing GI Denies abdominal pain, Denies melena, Denies hematochezia, Denies constipation, Denies diarrhea and Denies loose stools Denies hematuria Musc Denies numbness and Denies tingling Skin/Breast Denies lesions Neuro Denies vertigo, Denies dizziness, Denies numbness and Denies tingling Psych Denies anxiety, Denies depression, Denies homicidal ideation, Denies suicidal ideation and Denies other (substance abuse) Aller/Immun Denies wheezing Physical exam (Primary Care) Vital Signs: Last Vital Signs Pulse 74 08/05/23 11:09 BP 140/94 H 08/05/23 11:09 Pulse Ox 97 08/05/23 11:09 Oxygen Delivery Method Room Air 08/05/23 11:09 BMI result Body Mass Index 34.4 Tobacco/Smoking Status: Tobacco use Status Tobacco use date assessed 08/05/23 08/05/23 11:11 Patient Tobacco Use Status Never used Tobacco 08/05/23 11:11 e-Cigarette/Vaping Use Never Used 08/05/23 11:11 Thrive Assessment: Date of Thrive Assessment Date Thrive assessed 10/15/22 08/05/23 11:11 Const General: cooperative Nutritional Appearance: well nourished and obese Orientation/consciousness: patient oriented x3 HENMT Head: Yes normal to inspection, Yes normocephalic and Yes atraumatic Ears: TM's normal bilaterally Eyes General: appearance normal, both eyes and all related structures Alignment and Position: alignment normal and position normal Neck Other: ? submental mass vs adenopathy. not tender with touch, slightly moveable Neck: Yes normal visual inspection Thyroid: Thyroid normal Resp Effort & Inspection: normal respiratory effort Auscultation: clear to auscultation bilaterally Cardio Rate: regular rate Rhythm: regular rhythm Heart sounds: S1 normal heart sound present, S2 normal heart sound present and no murmurs GI Palpation (GI): Soft to palpation and nontender Auscultation: normal bowel sounds Male General Exam: Yes normal external exam Penis: normal penis Scrotum: scrotum normal, testes descended bilaterally and no inguinal hernias Testes: no testicular mass Skin Rashes: no rashes Neuro General: patient oriented x3, moves all extremities, no focal motor deficits and deep tendon reflexes 2+ bilaterally Romberg Test: Negative Psych Appearance: grossly normal Mental Status: mental status grossly normal Speech and movement: Normal speech and movement present Affect: normal affect Attitude: cooperative Thought process: Normal thought process present Thought content: Normal thought content present Insight: Good insight present (Psych) Judgement: Good judgement present (Psych) Assessment and Plan Assessment & Plan (1) Physical exam: Code(s): Z00.00 - Encounter for general adult medical examination without abnormal findings Plan: Labs ordered (2) Submental mass: Code(s): R22.1 - Localized swelling, mass and lump, neck Plan: US ordered Plan The patient agreed to the use of a manager medical device for this encounter. Scribed for RONI Islas- by Emeli Burgos manager medical device, on 08/05/2023 at 11:20 EST. Orders: Orders Complete Blood Count Auto Diff Today Z00.00 - Encounter for general adult medical examination without abnormal findings TSH reflex Free T4 Today Z00.00 - Encounter for general adult medical examination without abnormal findings US soft tiss head and/or neck Today R22.1 - Localized swelling, mass and lump, neck Comprehensive [place]. Panel Fast Today Z00.00 - Encounter for general adult medical examination without abnormal findings UA CC w/rflx Micro + Cult Today Z00.00 - Encounter for general adult medical examination without abnormal findings Lipid Panel Today Z00.00 - Encounter for general adult medical examination without abnormal findings Coding Level of Care Code Est Pt Prev Care 18-39y(64147) Diagnoses Physical exam Z00.00 Submental mass R22.1
[2023-08-05 11:09] VITALS: BP 140/94; PULSE 74; O2SAT 97; BMI 34.4
== END 2023-08-05 11:33 | disposition home or self-care (01) ==
PROVIDERS: Visit Provider Nurse Practitioner Family
DX: Z00.00 Encounter for general adult medical examination without abnormal findings (principal); R22.1 Localized swelling, mass and lump, neck
CPT/HCPCS: 99395

== ENCOUNTER 2023-08-05 11:34 | Outpatient (REF) | payer OTHER, SELFPAY ==
[2023-08-05 13:28] LABS: MANUAL DIFF FLAG NO
[2023-08-05 13:35] LABS: Basophils Absolute Auto 0.1 X10*3/uL (0.0-0.2); Basophils Percent Auto 0.7 % (0-2); Eosinophils Absolute Auto 0.2 X10*3/uL (0.0-0.4); Eosinophils Percent Auto 2.7 % (0-4); Hematocrit 44.9 % (42.0-52.0); Hemoglobin 15.5 g/dl (14.0-18.0); Imm Gran Abs Auto 0.04 X10*3/uL (0.00-0.03); Imm Gran Pct Auto 0.6 % (0.0-0.4); Lymphocytes Absolute Auto 2.4 X10*3/uL (1.2-4.9); Lymphocytes Percent Auto 34.3 % (20-40); Mean Corpuscular HGB Conc 34.5 g/dl (31.0-36.0); Mean Corpuscular Hemoglobin 28.2 pg (27.0-33.0); Mean Corpuscular Volume 81.8 fL (80.0-98.0); Mean Platelet Volume 11.2 fL (9.4-12.4); Monocytes Absolute Auto 0.5 X10*3/uL (0.1-1.2); Monocytes Percent Auto 6.9 % (2-11); Neutrophils Absolute Auto 3.8 x10*3/uL (2.0-8.3); Neutrophils Percent Auto 54.8 % (45-73); Platelet Count 278 X10*3/uL (160-400); Red Blood Count 5.49 X10*6/uL (4.60-5.80); Red Cell Distribution Width 12.5 % (11.0-16.0)
[2023-08-05 14:05] LABS: Alanine Aminotransferase 141 U/L (0-40); Albumin Level 4.8 g/dL (3.5-5.0); Alkaline Phosphatase 61 U/L (39-117); Anion Gap 14 (12-20); Aspartate Amino Transferase 84 U/L (5-37); Bilirubin Total 1.8 mg/dL (0.0-1.0); Blood Urea Nitrogen 14 mg/dL (9-16); Calcium 10.4 mg/dL (8.4-10.2); Carbon Dioxide 29 mmol/L (22-29); Chloride 102 mmol/L (96-108); Cholesterol 225 mg/dL (<200); Estimated Glomerular Filt Rate > 60; Glucose Fasting 110 mg/dL (60-99); HDL Cholesterol 35 mg/dL (>40); LDL Cholesterol Calculated 137 mg/dL (<100); Potassium 4.1 mmol/L (3.3-5.1); Sodium 141 mmol/L (135-145); Total Protein 8.8 g/dL (6.5-8.0); Triglycerides 268 mg/dL (<150)
[2023-08-05 14:18] LABS: Appearance Urine Clear; Color Urine Yellow; Glucose Urine UA Negative (Negative); Leukocyte Esterase Urine Negative (Negative); Nitrite Urine Negative (Negative); Specific Gravity - Urine 1.025 (1.005-1.025); Urine Blood Negative (Negative); Urine Ketones Negative (Negative); Urine Protein Trace mg/dL (Neg-Trace)
[2023-08-05 14:22] LABS: TSH reflex Free T4 4.01 uIU/mL (0.32-4.0)
[2023-08-05 15:11] LABS: Free T4 (Free Thyroxine) 0.97 ng/dL (0.71-1.85)
== END 2023-08-05 11:35 | disposition home or self-care (01) ==
LOC: HO.HMGCLDS 11:34
PROVIDERS: PCP Nurse Practitioner Family; Visit Provider Nurse Practitioner Family
DX: Z00.00 Encounter for general adult medical examination without abnormal findings (principal)
CPT/HCPCS: 36415; 80053; 80061; 81003; 84439; 84443; 85025

== ENCOUNTER 2023-08-12 14:31 | Outpatient (REF) | payer OTHER, SELFPAY ==
--- NOTE | ~2023-08-12 | US_ITS ---
EXAMINATION: US SOFT TISSUE NECK CLINICAL INFORMATION: Localized swelling, mass or lump, neck. Submental mass under chin. COMPARISON: None available. TECHNIQUE: Ultrasound of the neck soft tissues submental zone Ia of midline upper neck under chin and right and left zones Ib for comparison is performed with high- frequency de la cruz-scale imaging and color Doppler. FINDINGS: There is soft tissue skin thickening in the submental soft tissues. Enlarged submental node measuring 1.7 x 1.2 cm midline midline with a few other prominent bilateral cervical nodes aren't pathologically enlarged by short axis criteria. US/US soft tiss head and/or neck IMPRESSION: 1. An enlarged submental lymph node measuring 1.2 cm short axis corresponding to the area of palpable concern. There is overlying skin thickening, therefore recommend correlation with any clinical symptoms of soft tissue infection or etiology for reactive lymphadenopathy. If no etiology for reactive lymphadenopathy consider correlation with tissue sampling or short-term interval follow-up ultrasound. The report will be called to the ordering clinician by a [facility] Physician Hook Puller.
== END 2023-08-12 14:32 | disposition home or self-care (01) ==
LOC: HO.HMGCX 14:31
PROVIDERS: PCP Nurse Practitioner Family; Visit Provider Nurse Practitioner Family
DX: R22.1 Localized swelling, mass and lump, neck (principal)
CPT/HCPCS: 76536

== ENCOUNTER 2023-08-20 09:35 | Outpatient (AMB) | payer OTHER, SELFPAY ==
--- NOTE | 2023-08-20 09:58 | AM.OFFWIN_ITS ---
Intake Vital Signs 08/20/23 10:06 Height 5 ft 6 in Weight 96.615 kg BMI 34.4 BP 132/78 Blood Pressure Location Lt brachial Position Sitting Pulse 92 Pulse Source Pulse Oximeter Temp 97.6 F Temp Source Temporal Artery Scan Pulse Oximetry (%) 97 Oxygen Delivery Method Room Air Intake Visit Reasons: EP pink eye Intake Note: Pt is here c/o possible bilateral pink eye. Patient Tobacco Use Status: Never used Tobacco Allergies Sulfa (Sulfonamide Antibiotics) [SULFA(SULFONAMIDE ANTIBIOTICS)] Allergy (Unknown, Verified 08/20/23 10:04) UNKNOWN, Rash, hives Do you need a note to return to daycare/school/sports/work: Yes HPI HPI Comments History of Present Illness Details 1000 this is a 33-year-old male presenting with concerns that he may have pinkeye. This has been going on for the past few days, reports redness, discharge from eye. No known sick contacts but hes recovering from URI still has residual sore throat. Denies fevers, chills, chest pain, shortness of breath, nausea, vomiting, abdominal pain, headache, vision changes, painful vision or pain with eye movements PE w/ conjunctival injection. No pain with EOM likely conjunctivitis versus allergic conjunctivitis. Unlikely wet macular degeneration, acute closed angle glaucoma. Unlikely foreign body. Throat without any acute findings, no signs of retropharyngeal, peritonsillar abscess, epiglottitis, threatened airway. Will discharge with erythromycin. Educated patient on diagnosis and treatment plan, answered all question, patient verbalizes understanding. At this time patient will be discharged home, advised to return with new or worsening symptoms. Educated on worrisome signs and symptoms and when to return. At this time I feel comfortable discharge home. [facility] Medical History Fatty liver GERD (gastroesophageal reflux disease) Abnormal liver function tests Vitamin D deficiency Obesity Hyperparathyroidism Postablative hypothyroidism Surgical History H/O radioactive iodine thyroid ablation Hx of partial nephrectomy Family History Father Diabetes mellitus HTN (hypertension) Mother HTN (hypertension) Hyperlipidemia Maternal Grandmother Hypothyroidism Social History Household Members: Spouse and Children Household Members Other:: baby due in january Housing: House Alcohol intake: never Patient Tobacco Use Status: Never used Tobacco e-Cigarette/Vaping Use: Never Used Second Hand Smoke Exposure: No Current occupational status: employed Current occupation: [employer] Current occupational exposures/hazards: No Cognitive needs: No Hearing needs: No Vision needs: Yes Review of Systems Const Details: Constitutional : No Weight loss, No Fever, No Chills, No Fatigue, No Malaise ENT/Mouth : No sore throat, No Rhinorrhea Eyes: No Eye Pain, No Swelling, + Redness Cardiovascular : No Chest Pain, No SOB, No Dyspnea on Exertion, No Orthopnea, No Edema, No Palpitations Respiratory : No Cough, No Sputum, No Wheezing Gastrointestinal : No Nausea, No Vomiting, No Diarrhea, No Constipation, No abdominal Pain, No Hematochezia, No Melena Genitourinary : No Dysuria, No Urinary Frequency, No Hematuria, Musculoskeletal : No joint pain, No Myalgias, No Joint Swelling Skin : No Skin Lesions, No rash Neuro : No Weakness, No Numbness, No Dizziness, No Headache Psych : No Anxiety/Panic, No Depression All other systems reviewed and are negative All systems reviewed & are unremarkable except as noted in HPI and below Physical Exam Vital Signs: Last Vital Signs Temp 97.6 F 08/20/23 10:06 Pulse 92 08/20/23 10:06 BP 132/78 08/20/23 10:06 Pulse Ox 97 08/20/23 10:06 Oxygen Delivery Method Room Air 08/20/23 10:06 BMI result Body Mass Index 34.4 vss Appearance: Alert.? Oriented X3.? No acute distress.? Head: Normocephalic, atraumatic, no step-offs or deformities Eyes: Pupils equal, round and reactive to light.?+ conjunctival injection to r eye. No pain w/ eom b/l ENT: Pharynx normal.? Midline uvula. No exudate. No abscess. Speaking in full sentences contorlling secretions well. Neck: Normal inspection.? Neck supple.? CVS: Normal heart rate and rhythm.? Pulses normal.? Respiratory: No respiratory distress.? Breath sounds normal.? Abdomen: Soft and nontender.? Skin: Skin warm and dry.? Normal skin color.? Normal skin turgor.? Extremities: No lower extremity edema.? No calf ttp. 5/5 strength to bilateral upper and lower extremities Neuro: Oriented X 3.? No motor deficit.? No sensory deficit. CN 2-12 intact Assessment & Plan Assessment & Plan (1) Conjunctivitis: Code(s): H10.9 - Unspecified conjunctivitis (2) Pharyngitis: Code(s): J02.9 - Acute pharyngitis, unspecified Plan Take your medications as prescribed. If you were prescribed antibiotics today, it is important that you take your medication to their entirety, do not skip any doses, do not finish them early. Follow-up with your primary care provider this week. Return to the emergency department with new or worsening symptoms. Such as fevers, chills, chest pain, shortness of breath, nausea, vomiting, dizziness, headache, vision changes, lethargy In case of emergency call 911 Medications: New erythromycin 0.5 inches ophthalmic (eye) TID 7 days 3.5 grams 0RF prednisone 40 mg (2 x 20 mg) PO DAILY 10 tabs 0RF 5 days Coding Level of Care Code Est Pt Level 3 (01204) Diagnoses Conjunctivitis H10.9 Pharyngitis J02.9
[2023-08-20 10:06] VITALS: BP 132/78; PULSE 92; TEMP 36.4; O2SAT 97; BMI 34.4
== END 2023-08-20 10:20 | disposition home or self-care (01) ==
PROVIDERS: PCP Nurse Practitioner Family; Visit Provider Physician Assistant
DX: H10.33 Unspecified acute conjunctivitis, bilateral (principal); J02.9 Acute pharyngitis, unspecified
CPT/HCPCS: 99213

== ENCOUNTER 2023-09-30 10:28 | Outpatient (AMB) | payer OTHER, SELFPAY ==
--- NOTE | 2023-09-30 10:33 | A.OFFPC_ITS ---
Vital Signs 09/30/23 10:34 09/30/23 10:56 Height 5 ft 6 in Weight 211 lb BMI 34.1 BP 150/110 H 160/120 H Blood Pressure Location Lt brachial Lt brachial Position Sitting Sitting Pulse 78 Pulse Source Pulse Oximeter Pulse Oximetry (%) 97 Oxygen Delivery Method Room Air Intake Visit Reasons: Right side abdominal pain/Do not CX appt Intake Note: Patient here for right sided rib pain that has been present for about 1 week. Allergies Sulfa (Sulfonamide Antibiotics) [SULFA(SULFONAMIDE ANTIBIOTICS)] Allergy (Unkno wn, Verified 09/30/23 10:35) UNKNOWN, Rash, hives Medication List - Last Reconciled 09/30/23 by GILSON Gaytan albuterol sulfate 90 mcg/actuation (ProAir HFA) 1 inh inhalation Q4-6H PRN cyclobenzaprine 10 mg PO BEDTIME PRN ezetimibe 10 mg PO DAILY 90 days Levoxyl (levothyroxine) 150 mcg PO DAILY NS naproxen 500 mg PO BID PRN 14 days omeprazole magnesium (Prilosec OTC) 20 mg PO DAILY Tobacco use date assessed: 08/05/23 Dental Screening Dental Screen Date: 09/30/23 Did you have a dental visit in the last 12 months?: Yes Did you have a dental problem in the last 6 months where you did not have access to dental care?: No Was dental information given to patient?: Patient has dentist HPI Right side abdominal pain/Do not CX appt HPI Details Pt c/o intermittent right-sided abdominal pain x1 week. He reports that the pain is sharp and not worse with palpation. Pt reports that the pain is worse with movement. ? muscular issue. Will send cyclobenzaprine. Denies fever, chills, and N/V/D. HTN: Pt's blood pressure is elevated today. He reports that his blood pressure at home is in the 130s-140s/70s-80s. Will start losartan 25mg. Will have pt continue to monitor his BP at home. Denies chest pain, shortness of breath, headache, dizziness, and blurred vision. Pt is working on his diet. [facility] Medical History Fatty liver GERD (gastroesophageal reflux disease) Abnormal liver function tests Vitamin D deficiency Obesity Hyperparathyroidism Postablative hypothyroidism Surgical History H/O radioactive iodine thyroid ablation Hx of partial nephrectomy Family History Father Diabetes mellitus HTN (hypertension) Mother HTN (hypertension) Hyperlipidemia Maternal Grandmother Hypothyroidism Social History Household Members: Spouse and Children Household Members Other:: baby due in january Housing: House Alcohol intake: never Patient Tobacco Use Status: Never used Tobacco e-Cigarette/Vaping Use: Never Used Second Hand Smoke Exposure: No Current occupational status: employed Current occupation: [employer] Current occupational exposures/hazards: No Cognitive needs: No Hearing needs: No Vision needs: Yes Questionnaire Thrive Questionnaire Date Thrive assessed: 10/15/22 LEFTY-7 AMB Questionnaire LEFTY-7 Date LEFTY - 7 assessed: 10/15/22 Source: Developed by Drs. Alan Murillo, Wilma Conrad, Emmanuel Lr and colleagues, with an educational guillaume from [employer]. Review of Systems Const Reports as per HPI Physical exam (Primary Care) Vital Signs: Last Vital Signs Pulse 78 09/30/23 10:34 BP 160/120 H 09/30/23 10:56 Pulse Ox 97 09/30/23 10:34 Oxygen Delivery Method Room Air 09/30/23 10:34 BMI result Body Mass Index 34.1 Tobacco/Smoking Status: Tobacco use Status Tobacco use date assessed 08/05/23 09/30/23 10:34 Patient Tobacco Use Status Never used Tobacco 09/30/23 10:34 e-Cigarette/Vaping Use Never Used 09/30/23 10:34 Thrive Assessment: Date of Thrive Assessment Date Thrive assessed 10/15/22 09/30/23 10:34 Const General: cooperative Nutritional Appearance: obese Orientation/consciousness: patient oriented x3 Resp Effort & Inspection: normal respiratory effort Auscultation: clear to auscultation bilaterally Cardio Rate: regular rate Rhythm: regular rhythm Heart sounds: S1 normal heart sound present and S2 normal heart sound present GI Other: no rebound tenderness with palpation, bowel sounds present Skin Other: no signs of shingles Neuro General: patient oriented x3 Psych Appearance: grossly normal Mental Status: mental status grossly normal Speech and movement: Normal speech and movement present Affect: normal affect Attitude: cooperative Thought process: Normal thought process present Thought content: Normal thought content present Insight: Good insight present (Psych) Judgement: Good judgement present (Psych) Assessment and Plan Assessment & Plan (1) Pulled muscle: Code(s): T14.8XXA - Other injury of unspecified body region, initial encounter (2) HTN (hypertension): Code(s): I10 - Essential (primary) hypertension Plan: starting med, pt will cont to monitor BPs. Plan The patient agreed to the use of a emergency medical service manager for this encounter. Scribed for GILSON Islas by Emeli Burgos emergency medical service manager, on 09/30/2023 at 10:50 EST. Medications: New cyclobenzaprine 10 mg PO BEDTIME PRN 30 tabs 0RF muscle spasm losartan 25 mg PO DAILY 90 tabs 0RF Refilled ezetimibe 10 mg PO DAILY 90 days 90 tabs 0RF Coding Level of Care Code Est Pt Level 3 (99582) Diagnoses Pulled muscle T14.8XXA HTN (hypertension) I10
[2023-09-30 10:34] VITALS: BP 150/110; PULSE 78; O2SAT 97; BMI 34.1
[2023-09-30 10:56] VITALS: BP 160/120
== END 2023-09-30 14:29 | disposition home or self-care (01) ==
PROVIDERS: PCP Nurse Practitioner Family; Visit Provider Nurse Practitioner Family
DX: T14.8XXA Other injury of unspecified body region, initial encounter (principal); I10 Essential (primary) hypertension
CPT/HCPCS: 99213

== ENCOUNTER 2023-10-10 09:24 | Outpatient (AMB) | payer OTHER, SELFPAY ==
--- NOTE | 2023-10-10 11:04 | MHC.OFFWIV ---
Intake Vital Signs 10/10/23 11:06 10/10/23 11:09 Height 5 ft 6 in 5 ft 6 in Weight 216 lb BMI 34.9 BP 140/88 H Blood Pressure Location Rt brachial Position Sitting Pulse 71 Pulse Source Pulse Oximeter Temp Source Temporal Artery Scan Pulse Oximetry (%) 99 Oxygen Delivery Method Room Air Intake Visit Reasons: EP RT side pain/Sensation -[phone] Intake Note: Pt is here c/o right side pain and frequent urination. Patient Tobacco Use Status: Never used Tobacco Allergies Sulfa (Sulfonamide Antibiotics) [SULFA(SULFONAMIDE ANTIBIOTICS)] Allergy (Unknown, Verified 10/10/23 11:05) UNKNOWN, Rash, hives Do you need a note to return to daycare/school/sports/work: Yes HPI HPI Comments History of Present Illness Details Patient is a 33yo M who presents with R flank pain Hx of L partial nephrectomy and kidney stones he said pain since Friday/friday He has constant pain which has improved today was 04/14 now 10/15 No medicine for it Associated frequency with urination without dysuria, urgency, hematuria, penile discharge, STD concern or urinary retention He denies seeing a stone being urinated No nausea, vomiting, diarrhea, constipation, chest pain or SOB PFSH Medical History Fatty liver GERD (gastroesophageal reflux disease) Abnormal liver function tests Vitamin D deficiency Obesity Hyperparathyroidism Postablative hypothyroidism Surgical History H/O radioactive iodine thyroid ablation Hx of partial nephrectomy Family History Father Diabetes mellitus HTN (hypertension) Mother HTN (hypertension) Hyperlipidemia Maternal Grandmother Hypothyroidism Social History Household Members: Spouse and Children Household Members Other:: baby due in january Housing: House Alcohol intake: never Patient Tobacco Use Status: Never used Tobacco e-Cigarette/Vaping Use: Never Used Second Hand Smoke Exposure: No Current occupational status: employed Current occupation: [employer] Current occupational exposures/hazards: No Cognitive needs: No Hearing needs: No Vision needs: Yes Review of Systems Const Denies chills, Denies fever(s) and Denies headache(s) ENT Denies headache(s) Card Denies chest pain and Denies dyspnea Resp Denies chest congestion, Denies cough and Denies dyspnea GI Reports abdominal pain, Denies bloating, Denies change in stool character, Denies constipation, Denies heartburn, Denies diarrhea, Denies loose stools, Denies nausea and Denies vomiting Denies hematuria, Denies oliguria, Denies difficulty urinating, Reports urinary frequency, Denies urinary hesitancy, Denies urinary incontinence and Denies urinary urgency Musc Denies myalgias Neuro Denies headache(s) Physical Exam Vital Signs: Last Vital Signs Pulse 71 10/10/23 11:09 BP 140/88 H 10/10/23 11:09 Pulse Ox 99 10/10/23 11:09 Oxygen Delivery Method Room Air 10/10/23 11:09 BMI result Body Mass Index 34.9 General: Non-toxic, NAD. Speaking full sentences. Skin: Warm dry throughout Eye: EOMI Respiratory: CTA bilaterally. No wheezes, rales or rhonchi Cardiac: RRR. No murmur Abdominal: BS present. Non-tender throughout. Negative Rosvings. Negative murphys. No rebound or guarding. No mass or pusitile mass. No CVAT MSK: Full ROM extremities. Neurology: A/O No aphasia or facial droop. Gait without abnormality Psych: Good mood and affect Results AMB Urinalysis, Automated UA Leukoctes 0 Roxanna/uL Last Edit by Chhaya Ronquillo CMA on 10/10/23 11:20 UA Nitrite Negative Last Edit by Chhaya Ronquillo CMA on 10/10/23 11:20 UA Urobilinogen 0.2 mg/dL Last Edit by Chhaya Ronquillo CMA on 10/10/23 11:20 UA Protein 15 mg/dL Last Edit by Chhaya Ronquillo CMA on 10/10/23 11:20 UA pH 6.0 Last Edit by Chhaya Ronquillo CMA on 10/10/23 11:20 UA Blood 0 Otilio/uL Last Edit by Chhaya Ronquillo CMA on 10/10/23 11:20 UA Specific [place] 1.025 Last Edit by Chhaya Ronquillo CMA on 10/10/23 11:20 UA Ketone Negative Last Edit by Chhaya Ronquillo CMA on 10/10/23 11:20 UA Bilirubin 0 mg/dL Last Edit by Chhaya Ronquillo CMA on 10/10/23 11:20 UA Glucose 0 mg/dL Last Edit by Chhaya Ronquillo CMA on 10/10/23 11:20 Results Reviewed Results Reviewed: Laboratory Last Values Urine pH (Auto) 6.0 10/10/23 11:18 Specific [place] (Auto) 1.025 10/10/23 11:18 Urine Protein (Auto) 15 mg/dL 10/10/23 11:18 Glucose (UA)(Auto) 0 mg/dL 10/10/23 11:18 Urine Ketones (Auto) Negative 10/10/23 11:18 Urine Blood (Auto) 0 Otilio/uL 10/10/23 11:18 Urine Nitrite (Auto) Negative 10/10/23 11:18 Urine Bilirubin (Auto) 0 mg/dL 10/10/23 11:18 Urine Urobilinogen (Auto) 0.2 mg/dL 10/10/23 11:18 Leukocyte Esterase (Auto) 0 Roxanna/uL 10/10/23 11:18 Assessment & Plan Assessment & Plan (1) Flank pain: Code(s): R10.9 - Unspecified abdominal pain Plan Patient seen and evaluated. Abdomen is non-tender and non-acute Urine; negative glucose, ketones, blood, nitrates or leuks Pain improved today and is only 1/10 Seems like passed stone. Recommended increase fluid hydration and tylenol prn F/U with PCP Monitor urine output and if concern or retention or pain/blood go to ED If recurrent pain with cocnern, go to ED Patient gave verbal understanding and had no additional questions or concerns at time of discharge All questions answered Orders: Orders AMB Urinalysis Automated Today Z13.9 - Encounter for screening, unspecified Coding Level of Care Code Est Pt Level 3 (96830) Diagnoses Flank pain R10.9
[2023-10-10 11:09] VITALS: BP 140/88; PULSE 71; O2SAT 99; BMI 34.9
== END 2023-10-10 11:53 | disposition home or self-care (01) ==
PROVIDERS: PCP Nurse Practitioner Family; Visit Provider Physician Assistant
DX: R10.9 Unspecified abdominal pain (principal)
CPT/HCPCS: 81003; 99213

== ENCOUNTER 2023-11-25 09:16 | Outpatient (AMB) | payer OTHER, SELFPAY ==
[2023-11-25 09:21] VITALS: BP 136/80; PULSE 68; TEMP 36.7; O2SAT 97; BMI 34.1
--- NOTE | 2023-11-25 09:21 | MHC.OFFWIV ---
Intake Vital Signs 11/25/23 09:21 Height 5 ft 6 in Weight 211 lb BMI 34.1 BP 136/80 Blood Pressure Location Lt brachial Position Sitting Pulse 68 Pulse Source Pulse Oximeter Temp 98.0 F Temp Source Temporal Artery Scan Pulse Oximetry (%) 97 Oxygen Delivery Method Room Air Intake Visit Reasons: EP Pain in Ride side chest (upper) Intake Note: pt is here today for pain in rt side chest started yesterday Patient Tobacco Use Status: Never used Tobacco Allergies Sulfa (Sulfonamide Antibiotics) [SULFA(SULFONAMIDE ANTIBIOTICS)] Allergy (Unknown, Verified 11/25/23 09:22) UNKNOWN, Rash, hives Do you need a note to return to daycare/school/sports/work: No HPI HPI Comments History of Present Illness Details 33-year-old male presents with chest tightness in the epigastric area right greater than left. Onset of the pain was 24 hours ago. He relates his diet in the last couple of days to be fairly benign without history of fried or spicy food. Has a past medical history of GERD and hypercholesterolemia. He also states he had mild nausea denies vomiting no change in stool or urinary habits. [facility] Medical History Fatty liver GERD (gastroesophageal reflux disease) Abnormal liver function tests Vitamin D deficiency Obesity Hyperparathyroidism Postablative hypothyroidism Surgical History H/O radioactive iodine thyroid ablation Hx of partial nephrectomy Family History Father Diabetes mellitus HTN (hypertension) Mother HTN (hypertension) Hyperlipidemia Maternal Grandmother Hypothyroidism Social History Household Members: Spouse and Children Household Members Other:: baby due in january Housing: House Alcohol intake: never Patient Tobacco Use Status: Never used Tobacco e-Cigarette/Vaping Use: Never Used Second Hand Smoke Exposure: No Current occupational status: employed Current occupation: [employer] Current occupational exposures/hazards: No Cognitive needs: No Hearing needs: No Vision needs: Yes Review of Systems Card Reports chest pain and Reports pedal edema GI Reports abdominal pain and Reports nausea Physical Exam Vital Signs: Last Vital Signs Temp 98.0 F 11/25/23 09:21 Pulse 68 11/25/23 09:21 BP 136/80 11/25/23 09:21 Pulse Ox 97 11/25/23 09:21 Oxygen Delivery Method Room Air 11/25/23 09:21 BMI result Body Mass Index 34.1 Const General: in distress mild HEENT Head: Yes normal to inspection, Yes normocephalic and Yes atraumatic Ears: hearing grossly normal bilaterally and external ears normal General nose exam: Normal external nose present Face and sinus: Yes normal facial exam Eyes General: appearance normal, both eyes and all related structures Chest Chest palpation & inspection: normal inspection of the chest Resp Effort & Inspection: normal respiratory effort Auscultation: clear to auscultation bilaterally Cardio Rate: regular rate Rhythm: regular rhythm GI Inspection: Yes normal to inspection and Yes incision Palpation (GI): Soft to palpation and Tenderness to palpation present (GI) in the epigastrum (Mild epigastric tenderness negative Wheatley sign no rebound tenderness) Auscultation: normal bowel sounds Skin General skin exam: no rashes or lesions noted Results Reviewed Results Reviewed: Results of the EKG showed normal sinus rhythm and were reviewed with the patient Assessment & Plan Assessment & Plan (1) Chest tightness: Code(s): R07.89 - Other chest pain Plan: I am going to send him for some lab work to rule out cholecystitis. Instructed him to start taking his Pepcid and omeprazole annual follow-up on the lab work has returned (2) Abdominal pain: Code(s): R10.9 - Unspecified abdominal pain Plan: See plan Plan See plan Orders: Orders AMB EKG-In Office Today R07.89 - Other chest pain Amylase Today R10.9 - Unspecified abdominal pain Lipase Today R10.9 - Unspecified abdominal pain Complete Blood Count Auto Diff Today R10.9 - Unspecified abdominal pain Comprehensive Met. Panel Today R10.9 - Unspecified abdominal pain Coding Level of Care Code Est Pt Level 3 (64435) Diagnoses Chest tightness R07.89 Abdominal pain R10.9 Time Spent (min) 30
== END 2023-11-25 11:39 | disposition home or self-care (01) ==
PROVIDERS: PCP Nurse Practitioner Family; Visit Provider Physician Assistant Medical
DX: R07.89 Other chest pain (principal); R10.9 Unspecified abdominal pain
CPT/HCPCS: 93000; 99213

== ENCOUNTER 2023-11-25 10:22 | Outpatient (REF) | payer OTHER, SELFPAY ==
[2023-11-25 13:21] LABS: MANUAL DIFF FLAG NO
[2023-11-25 13:35] LABS: Basophils Absolute Auto 0.1 X10*3/uL (0.0-0.2); Basophils Percent Auto 0.7 % (0-2); Eosinophils Absolute Auto 0.3 X10*3/uL (0.0-0.4); Eosinophils Percent Auto 3.6 % (0-4); Hematocrit 42.8 % (42.0-52.0); Hemoglobin 14.7 g/dl (14.0-18.0); Imm Gran Abs Auto 0.04 X10*3/uL (0.00-0.03); Imm Gran Pct Auto 0.6 % (0.0-0.4); Lymphocytes Absolute Auto 2.7 X10*3/uL (1.2-4.9); Lymphocytes Percent Auto 38.4 % (20-40); Mean Corpuscular HGB Conc 34.3 g/dl (31.0-36.0); Mean Corpuscular Hemoglobin 27.5 pg (27.0-33.0); Mean Platelet Volume 11.2 fL (9.4-12.4); Monocytes Absolute Auto 0.4 X10*3/uL (0.1-1.2); Monocytes Percent Auto 5.8 % (2-11); Neutrophils Absolute Auto 3.5 x10*3/uL (2.0-8.3); Neutrophils Percent Auto 50.9 % (45-73); Platelet Count 250 X10*3/uL (160-400); Red Blood Count 5.35 X10*6/uL (4.60-5.80); Red Cell Distribution Width 12.1 % (11.0-16.0); White Blood Count 6.9 X10*3/uL (4.8-10.8)
[2023-11-25 13:44] LABS: Alanine Aminotransferase 183 U/L (0-40); Albumin Level 4.8 g/dL (3.5-5.0); Alkaline Phosphatase 69 U/L (39-117); Amylase 68 U/L (28-100); Anion Gap 14 (12-20); Aspartate Amino Transferase 105 U/L (5-37); Bilirubin Total 1.7 mg/dL (0.0-1.0); Blood Urea Nitrogen 12 mg/dL (9-16); Calcium 9.9 mg/dL (8.4-10.2); Carbon Dioxide 28 mmol/L (22-29); Chloride 99 mmol/L (96-108); Estimated Glomerular Filt Rate > 60; Glucose Random 206 mg/dL (60-115); Lipase 83 U/L (8-78); Potassium 4.3 mmol/L (3.3-5.1); Sodium 137 mmol/L (135-145); Total Protein 8.8 g/dL (6.5-8.0)
== END 2023-11-25 10:23 | disposition home or self-care (01) ==
LOC: HO.HMGCLDS 10:22
PROVIDERS: PCP Nurse Practitioner Family; Visit Provider Physician Assistant Medical
DX: R10.9 Unspecified abdominal pain (principal)
CPT/HCPCS: 36415; 80053; 82150; 83690; 85025

== ENCOUNTER 2023-11-28 09:56 | Outpatient (REF) | payer OTHER, SELFPAY ==
--- NOTE | ~2023-11-28 | US_ITS ---
EXAMINATION: US ABDOMEN COMPLETE CLINICAL INFORMATION: Abnormal results of liver function studies. COMPARISON: Renal ultrasound 01/21/2023. Ultrasound abdomen complete 10/15/2022. CT abdomen and pelvis 08/11/2017. X-ray KUB 10/17/2016 and 07/25/2016. MRI abdomen 05/22/2015. TECHNIQUE: Real-time imaging of the abdominal viscera. Limited visualization due to bowel gas. FINDINGS: PANCREAS: Poorly visualized. ABDOMINAL AORTA: Poorly visualized. INFERIOR VENA CAVA: Limited visualization. LIVER: Hepatomegaly, 22.1 cm. Increased hepatic parenchymal heterogeneity and echogenicity could be associated with hepatocellular disease/hepatic steatosis and severely limits visualization. Correlation with liver function tests and clinical exam recommended to determine further management. GALLBLADDER: No gallbladder wall thickening. No gallstones. COMMON BILE DUCT: Normal in caliber measuring 0.5 cm in diameter. RIGHT KIDNEY: No hydronephrosis. No renal calculi. Limited visualization. The kidney measures 11.1 cm in maximum dimension. LEFT KIDNEY: Status post partial left nephrectomy. No hydronephrosis. No renal calculi. Limited visualization. The kidney measures 9.0 cm in maximum dimension. SPLEEN: Normal. The spleen measures 12.6 cm in maximum dimension. FREE FLUID: None. US/US abdomen complete IMPRESSION: 1. Hepatomegaly, 22.1 cm. Increased hepatic parenchymal heterogeneity and echogenicity could be associated with hepatocellular disease/hepatic steatosis and severely limits visualization. Correlation with liver function tests and clinical exam recommended to determine further management. 2. Status post partial left nephrectomy.
== END 2023-11-28 09:57 | disposition home or self-care (01) ==
LOC: HO.US 09:56
PROVIDERS: Visit Provider Nurse Practitioner Family
DX: R94.5 Abnormal results of liver function studies (principal)
CPT/HCPCS: 76700

== ENCOUNTER 2023-12-11 08:20 | Outpatient (AMB) | payer OTHER, SELFPAY ==
--- NOTE | 2023-12-11 08:29 | MHC.PC.OV ---
Vital Signs 12/11/23 08:32 12/11/23 08:54 Height 5 ft 6 in Weight 211 lb BMI 34.1 BP 142/88 H 138/86 Blood Pressure Location Lt brachial Rt brachial Position Sitting Sitting Pulse 82 Pulse Source Pulse Oximeter Pulse Oximetry (%) 97 Intake Visit Reasons: bad Cough Intake Note: pt is here for c/o cough for 2 weeks, has resolved but wanted to follow up Denier Control Operator Required: No Allergies Sulfa (Sulfonamide Antibiotics) [SULFA(SULFONAMIDE ANTIBIOTICS)] Allergy (Unknown, Verified 12/11/23 09:20) UNKNOWN, Rash, hives Medication List - Last Reconciled 12/11/23 by RONI Gaytan-MILTON ezetimibe 10 mg PO DAILY 90 days Levoxyl (levothyroxine) 150 mcg PO DAILY NS losartan 25 mg PO DAILY Tobacco use date assessed: 12/11/23 Dental Screening Dental Screen Date: 12/11/23 Did you have a dental visit in the last 12 months?: Yes Did you have a dental problem in the last 6 months where you did not have access to dental care?: No Was dental information given to patient?: Patient has dentist HPI bad Cough HPI Details HTN: Blood pressure is managed with losartan 25mg. Will have pt monitor his blood pressure at home. Denies chest pain, shortness of breath, headache, dizziness, and blurred vision. Pt reports a recent cough, though he reports this has improved. Pt c/o intermittent right abdominal pain. He reports that this is dull and is not associated with ingestion. denies any n/v, diarrhea, fevers, blood in stool. Recent US showed hepatomegaly, 22.1 cm. Increased hepatic parenchymal heterogeneity and echogenicity could be associated with hepatocellular disease/hepatic steatosis and severely limits visualization. Status post partial left nephrectomy. He has been referred to GI. Will order CT. Highly encouraged pt to work on his diet and get more exercise. [facility] Medical History Fatty liver GERD (gastroesophageal reflux disease) Abnormal liver function tests Vitamin D deficiency Obesity Hyperparathyroidism Postablative hypothyroidism Surgical History H/O radioactive iodine thyroid ablation Hx of partial nephrectomy Family History Father Diabetes mellitus HTN (hypertension) Mother HTN (hypertension) Hyperlipidemia Maternal Grandmother Hypothyroidism Social History Household Members: Spouse and Children Household Members Other:: baby due in january Housing: House Alcohol intake: never Patient Tobacco Use Status: Never used Tobacco e-Cigarette/Vaping Use: Never Used Second Hand Smoke Exposure: No Current occupational status: employed Current occupation: [employer] Current occupational exposures/hazards: No Cognitive needs: No Hearing needs: No Vision needs: Yes Questionnaire PHQ-9 Over the last 2 weeks, how often have you been bothered by any of the following problems? 1. Little interest or pleasure in doing things: more than half the days 2. Feeling down, depressed, or hopeless: several days 3. Trouble falling or staying asleep, or sleeping too much: nearly every day 4. Feeling tired or having little energy: nearly every day 5. Poor appetite or overeating: several days 6. Feeling bad about yourself - or that you are a failure or have let yourself or your family down: not at all 7. Trouble concentrating on things, such as reading the newspaper or watching television: not at all 8. Moving or speaking so slowly that other people could have noticed. Or the opposite - being so fidgety or restless that you have been moving around a lot more than usual: not at all 9. Thoughts that you would be better off or of hurting yourself in some way: not at all Total score: 10 Depression Screening Interpretation: Positive (will have contact pt) Depression Screening Follow-up: Existing condition Depression Screening Done: Yes 07601 - PHQ-9 Billing: Yes Source: Developed by Drs. Alan Murillo, Wilma Conrad, Emmanuel Lr and colleagues, with an educational guillaume from [email or web address]. Thrive Questionnaire Date Thrive assessed: 12/11/23 I am a: Patient What is your living situation today?: I have a steady place to live Within the past 12 months, did the food you bought not last and you didn't have the money to get more?: Never true Within the past 12 months, did you worry whether your food would run out before you got money to buy more?: Never true Do you have trouble paying for medicines?: No Do you have trouble getting transportation to medical appointments?: No Do you have trouble paying your heating and electricity bill?: No Do you have trouble taking care of your child, family member or friend?: No Do you have trouble with day-to-day activities such as bathing, preparing meals, shopping, managing finances, etc.?: No Are you currently unemployed and looking for a job?: No Are you interested in more education?: No Please select the resources that you would like help with: None Currently or been in a relationship where the following occur: no concerns reported THRIVE Score: 0 AUDIT C Alcohol Use Questionnaire (AUDIT-C) 1. How often do you have a drink containing alcohol?: Never 2. How many drinks containing alcohol do you have on a typical day when you are drinking?: 1 or 2 3. How often do you have six or more drinks on one occasion?: Never Total Score: 0 Score Reviewed/Action Taken: Yes LEFTY-7 AMB Questionnaire LEFTY-7 Date LEFTY - 7 assessed: 12/11/23 Feeling nervous, anxious, or on edge: 1 = Several days Not being able to stop or control worryin = More than half the days Worrying too much about different things: 2 = More than half the days Trouble relaxin = Not at all Being so restless that it is hard to sit still: 0 = Not at all Becoming easily annoyed or irritable: 2 = More than half the days Feeling afraid as if something awful might happen: 0 = Not at all Total LEFTY-7 score (0-4 normal; 5-9 mild; 10-14 moderate; 15-21 severe): 7 Source: Developed by Drs. Alan Murillo, Wilma Conrad, Emmanuel Lr and colleagues, with an educational guillaume from [email or web address]. LEFTY-7 Assessment Billing LEFTY-7 Assessment Tool: LEFTY-7 Assessment 91400 Review of Systems Const Reports as per HPI Physical exam (Primary Care) Vital Signs: Last Vital Signs Pulse 82 12/11/23 08:32 BP 138/86 12/11/23 08:54 Pulse Ox 97 12/11/23 08:32 BMI result Body Mass Index 34.1 Tobacco/Smoking Status: Tobacco use Status Tobacco use date assessed 12/11/23 12/11/23 08:36 Patient Tobacco Use Status Never used Tobacco 12/11/23 08:32 e-Cigarette/Vaping Use Never Used 12/11/23 08:32 PHQ-9: PHQ-9 Score PHQ-9: Total score 0 12/11/23 08:54 Depression Screening Interpretation: Positive (will have BH contact pt) Depression Screening Follow-up: Existing condition Thrive Assessment: Date of Thrive Assessment Date Thrive assessed 12/11/23 12/11/23 08:36 Currently or been in a relationship where the following occur: no concerns reported Const General: cooperative Nutritional Appearance: obese Orientation/consciousness: patient oriented x3 Resp Effort & Inspection: normal respiratory effort Auscultation: clear to auscultation bilaterally Cardio Rate: regular rate Rhythm: regular rhythm Heart sounds: S1 normal heart sound present and S2 normal heart sound present GI Other: no abdominal pain with palpation, + BS, obese Neuro General: patient oriented x3 Psych Appearance: grossly normal Mental Status: mental status grossly normal Speech and movement: Normal speech and movement present Affect: normal affect Attitude: cooperative Thought process: Normal thought process present Thought content: Normal thought content present Insight: Good insight present (Psych) Judgement: Good judgement present (Psych) Assessment and Plan Assessment & Plan (1) Abnormal liver function tests: Code(s): R94.5 - Abnormal results of liver function studies Plan: CT ordered (2) Abnormal US (ultrasound) of abdomen: Code(s): R93.5 - Abnormal findings on diagnostic imaging of other abdominal regions, including retroperitoneum Plan: CT ordered (3) Abdominal pain: Code(s): R10.9 - Unspecified abdominal pain (4) HTN (hypertension): Code(s): I10 - Essential (primary) hypertension Plan: pt will take his BP at home, cont current medications Plan The patient agreed to the use of a medical lab technologist for this encounter. Scribed for GILSON Islas by Emeli Burgos medical lab technologist, on 12/11/2023 at 08:40 EST. Orders: Orders CT abdomen pelvis w IV con Today R93.5 - Abnormal findings on diagnostic imaging of other abdominal regions, including retroperitoneum, R94.5 - Abnormal results of liver function studies Coding Level of Care Code Est Pt Level 3 (32343) Diagnoses Abnormal liver function tests R94.5 Abnormal US (ultrasound) of abdomen R93.5 Abdominal pain R10.9 HTN (hypertension) I10 Additional Codes LEFTY-7 Assessment Billing - LEFTY-7 Assessment Tool: LEFTY-7 Assessment 24712 ([id number])
[2023-12-11 08:32] VITALS: BP 142/88; PULSE 82; O2SAT 97; BMI 34.1
[2023-12-11 08:54] VITALS: BP 138/86
== END 2023-12-11 09:41 | disposition home or self-care (01) ==
PROVIDERS: PCP Nurse Practitioner Family; Visit Provider Nurse Practitioner Family
DX: R94.5 Abnormal results of liver function studies (principal); R93.5 Abnormal findings on diagnostic imaging of other abdominal regions, including retroperitoneum; R10.9 Unspecified abdominal pain; I10 Essential (primary) hypertension
CPT/HCPCS: 99213

== ENCOUNTER → 2023-12-23 13:06 | Outpatient (BNVA) | payer SELFPAY | PROVIDERS: PCP Nurse Practitioner Family; Visit Provider Physician Assistant Medical | DX: Z02.79 Encounter for issue of other medical certificate (principal) ==

== ENCOUNTER 2023-12-25 08:57 | Outpatient (REF) | payer OTHER, SELFPAY ==
[2023-12-25 11:06] LABS: MANUAL DIFF FLAG NO
[2023-12-25 11:08] LABS: Appearance Urine Clear; Color Urine Dark Yellow; Glucose Urine UA >=1000 mg/dL (Negative); Leukocyte Esterase Urine Negative (Negative); Nitrite Urine Negative (Negative); PH 5.5 (5.0-9.0); Specific Gravity - Urine >= 1.030 (1.005-1.025); UMIC TRIGGER UACC YES; Urine Blood Negative (Negative); Urine Ketones Trace mg/dL (Negative); Urine Protein 30 (1+) mg/dL (Neg-Trace)
[2023-12-25 11:15] LABS: Bacteria Urine None Seen (None Seen); Hyaline Casts Urine 0-2 /LPF (0-2); RBC Urine 0-2 /HPF (0-2); Squamous Epithelial Cell Urine 0-2 /HPF (0-2); WBC Urine 0-5 /HPF (0-5)
[2023-12-25 11:19] LABS: Basophils Percent Auto 0.7 % (0-2); Eosinophils Absolute Auto 0.2 X10*3/uL (0.0-0.4); Eosinophils Percent Auto 2.7 % (0-4); Hematocrit 41.7 % (42.0-52.0); Hemoglobin 14.8 g/dl (14.0-18.0); Imm Gran Abs Auto 0.02 X10*3/uL (0.00-0.03); Imm Gran Pct Auto 0.4 % (0.0-0.4); Lymphocytes Absolute Auto 2.6 X10*3/uL (1.2-4.9); Lymphocytes Percent Auto 46.6 % (20-40); Mean Corpuscular HGB Conc 35.5 g/dl (31.0-36.0); Mean Corpuscular Hemoglobin 28.2 pg (27.0-33.0); Mean Corpuscular Volume 79.4 fL (80.0-98.0); Mean Platelet Volume 11.9 fL (9.4-12.4); Monocytes Absolute Auto 0.4 X10*3/uL (0.1-1.2); Neutrophils Absolute Auto 2.4 x10*3/uL (2.0-8.3); Neutrophils Percent Auto 42.6 % (45-73); Platelet Count 232 X10*3/uL (160-400); Red Blood Count 5.25 X10*6/uL (4.60-5.80); Red Cell Distribution Width 12.1 % (11.0-16.0); White Blood Count 5.6 X10*3/uL (4.8-10.8)
[2023-12-25 11:30] LABS: Estimated Average Glucose 194 mg/dL; Hemoglobin A1c % 8.4 % (<6.0)
[2023-12-25 11:33] LABS: Alanine Aminotransferase 173 U/L (0-40); Albumin Level 4.6 g/dL (3.5-5.0); Alkaline Phosphatase 77 U/L (39-117); Anion Gap 15 (12-20); Aspartate Amino Transferase 109 U/L (5-37); Bilirubin Total 1.4 mg/dL (0.0-1.0); Blood Urea Nitrogen 15 mg/dL (9-16); Calcium 9.9 mg/dL (8.4-10.2); Carbon Dioxide 26 mmol/L (22-29); Chloride 99 mmol/L (96-108); Cholesterol 258 mg/dL (<200); Estimated Glomerular Filt Rate > 60; Glucose Fasting 303 mg/dL (60-99); Glucose Random 304 mg/dL (60-115); HDL Cholesterol 28 mg/dL (>40); Sodium 136 mmol/L (135-145); Total Protein 8.6 g/dL (6.5-8.0); Triglycerides 686 mg/dL (<150)
[2023-12-25 11:49] LABS: TSH reflex Free T4 5.63 uIU/mL (0.32-4.0)
[2023-12-25 11:51] LABS: HBc Num1 0.17 S/CO (0.00-0.79); HBsAGNum1 0.38 S/CO (0.00-0.99); Hepatitis A Antibody IgM 0.12 Index (0-0.79); Hepatitis B Core Antibody Nonreactive (Nonreactive); Hepatitis B Surface Antigen Negative (Negative); ~HepC Num1 0.46 S/CO (0.00-0.79); ~Hepatitis A Antibody IgM Nonreactive (Nonreactive); ~Hepatitis C Antibody Nonreactive (Nonreactive)
[2023-12-25 12:27] LABS: Free T4 (Free Thyroxine) 1.13 ng/dL (0.71-1.85)
[2023-12-26 09:03] LABS: HBS Num1 97.25 mIU/mL (0-7.99); ~Hepatitis B Surface Antibody REACTIVE (Nonreactive)
== END 2023-12-25 08:58 | disposition home or self-care (01) ==
LOC: HO.HMGCLDS 08:57
PROVIDERS: PCP Nurse Practitioner Family; Visit Provider Nurse Practitioner Family
DX: E78.5 Hyperlipidemia, unspecified (principal); E21.3 Hyperparathyroidism, unspecified; R94.5 Abnormal results of liver function studies; R73.09 Other abnormal glucose
CPT/HCPCS: 36415; 80053; 80061; 81001; 83036; 84439; 84443; 85025; 86704; 86706; 86709; 86803; 87340

== ENCOUNTER 2023-12-30 10:20 | Outpatient (AMB) | payer OTHER, SELFPAY ==
--- NOTE | 2023-12-30 10:25 | MHC.OFFWIV ---
Intake Vital Signs 12/30/23 10:26 Height 5 ft 6 in Weight 204 lb 6 oz BMI 33.0 BP 120/82 Blood Pressure Location Lt brachial Position Sitting Pulse 67 Pulse Source Pulse Oximeter Temp 98.0 F Temp Source Oral Pulse Oximetry (%) 97 Oxygen Delivery Method Room Air Intake Visit Reasons: EP Throat Pain Intake Note: Pt presents to the office today for c/o left sided throat pain. Pt states he has pain that started on friday but it more external pain when it is touched and he states the pain is radiating to his jaw and left ear. Patient Tobacco Use Status: Never used Tobacco Allergies Sulfa (Sulfonamide Antibiotics) [SULFA(SULFONAMIDE ANTIBIOTICS)] Allergy (Unknown, Verified 12/30/23 10:59) UNKNOWN, Rash, hives Medication List - Last Reconciled 12/30/23 by Pollo Licona MD ezetimibe 10 mg PO DAILY 90 days fenofibric acid 105 mg PO DAILY fluvastatin 20 mg PO QPM Levoxyl (levothyroxine) 150 mcg PO DAILY NS losartan 25 mg PO DAILY HPI EP Throat Pain HPI Details 33 yr old male presents to the office for a sick visit. Reports pain beneath the left jaw. Pain is constant and not related to swalling. No fever or chills . PFSH Medical History Fatty liver GERD (gastroesophageal reflux disease) Abnormal liver function tests Vitamin D deficiency Obesity Hyperparathyroidism Postablative hypothyroidism Surgical History H/O radioactive iodine thyroid ablation Hx of partial nephrectomy Family History Father Diabetes mellitus HTN (hypertension) Mother HTN (hypertension) Hyperlipidemia Maternal Grandmother Hypothyroidism Social History Household Members: Spouse and Children Household Members Other:: baby due in january Housing: House Alcohol intake: never Patient Tobacco Use Status: Never used Tobacco e-Cigarette/Vaping Use: Never Used Second Hand Smoke Exposure: No Current occupational status: employed Current occupation: [employer] Current occupational exposures/hazards: No Cognitive needs: No Hearing needs: No Vision needs: Yes Physical Exam Vital Signs: Last Vital Signs Temp 98.0 F 12/30/23 10:26 Pulse 67 12/30/23 10:26 BP 120/82 12/30/23 10:26 Pulse Ox 97 12/30/23 10:26 Oxygen Delivery Method Room Air 12/30/23 10:26 BMI result Body Mass Index 33.0 Const General: cooperative and healthy appearing Nutritional Appearance: well nourished Orientation/consciousness: patient oriented x3 Limitations: no limitations HEENT Other: Throat: Oral cavity is normal, no pharyngeal wall congestion. Head: Yes normal to inspection Eyes General: appearance normal, both eyes and all related structures Neck Other: Neck: Swelling over the left side of the neck, not moving with deglutition. Minimal discomfirt at the angle of the jaw Neck: Yes normal visual inspection Chest Chest palpation & inspection: normal palpation of entire chest wall Resp Effort & Inspection: normal respiratory effort Neuro General: patient oriented x3 Assessment & Plan Assessment & Plan (1) Neck swelling: Code(s): R22.1 - Localized swelling, mass and lump, neck Plan Emprical abx treatment ordered. US of the neck has been ordered. Will call with the results Orders: Orders US soft tiss head and/or neck Today R22.1 - Localized swelling, mass and lump, neck Coding Level of Care Code Est Pt Level 4 (50477) Diagnoses Neck swelling R22.1
[2023-12-30 10:26] VITALS: BP 120/82; PULSE 67; TEMP 36.7; O2SAT 97; BMI 33.0
== END 2023-12-30 11:47 | disposition home or self-care (01) ==
PROVIDERS: PCP Nurse Practitioner Family; Visit Provider Internal Medicine
DX: R22.1 Localized swelling, mass and lump, neck (principal)
CPT/HCPCS: 99214

== ENCOUNTER 2024-01-07 07:35 | Outpatient (AMB) | payer OTHER, SELFPAY ==
--- NOTE | 2024-01-07 07:23 | A.OFFPC_ITS ---
Intake Visit Reasons: review labs/medication ? Allergies Sulfa (Sulfonamide Antibiotics) [SULFA(SULFONAMIDE ANTIBIOTICS)] Allergy (Unknown, Verified 12/30/23 10:59) UNKNOWN, Rash, hives Medication List - Last Reconciled 01/07/24 by GILSON Gaytan amoxicillin 500 mg PO Q8H blood-glucose meter (FreeStyle Lite Meter kit) As directed ezetimibe 10 mg PO DAILY 90 days fenofibric acid 105 mg PO DAILY FreeStyle Lite Strips (blood sugar diagnostic) Test blood sugar twice a day NS lancets (FreeStyle Lancets) Test blood sugar twice a day Levoxyl (levothyroxine) 150 mcg PO DAILY NS losartan 25 mg PO DAILY lovastatin 40 mg PO QPM Tobacco use date assessed: 12/11/23 Dental Screening Dental Screen Date: 12/11/23 HPI review labs/medication ? HPI Details Pt is a newly diagnosed diabetic, on an ARB and a statin. Last A1C was 8.4. Due for microalbumin. Denies polyuria, polydipsia, and neuropathy. Pt denies any signs and symptoms of hypoglycemia and does know how to correct it. Pt is meeting with Nurse Navigator tomorrow. Pt's liver enzymes were elevated (fatty liver). His cholesterol was also elevated. Pt is taking ezetimibe 10mg and fenofibric acid 105mg. Fluvastatin was sent but this was not covered by insurance, will send lovastatin. educated on proper diet, portion sizes, lifestyle changes. WIll follow up with this pt in apporx 1 month. [facility] Medical History Fatty liver GERD (gastroesophageal reflux disease) Abnormal liver function tests Vitamin D deficiency Obesity Hyperparathyroidism Postablative hypothyroidism Surgical History H/O radioactive iodine thyroid ablation Hx of partial nephrectomy Family History Father Diabetes mellitus HTN (hypertension) Mother HTN (hypertension) Hyperlipidemia Maternal Grandmother Hypothyroidism Social History Household Members: Spouse and Children Household Members Other:: baby due in january Housing: House Alcohol intake: never Patient Tobacco Use Status: Never used Tobacco e-Cigarette/Vaping Use: Never Used Second Hand Smoke Exposure: No Current occupational status: employed Current occupation: [employer] Current occupational exposures/hazards: No Cognitive needs: No Hearing needs: No Vision needs: Yes Questionnaire Thrive Questionnaire Date Thrive assessed: 12/11/23 LEFTY-7 AMB Questionnaire LEFTY-7 Date LEFTY - 7 assessed: 12/11/23 Source: Developed by Drs. Alan Murillo, Wilma Conrad, Emmanuel Lr and colleagues, with an educational guillaume from [employer]. Review of Systems Const Reports as per HPI Physical exam (Primary Care) Tobacco/Smoking Status: Tobacco use Status Tobacco use date assessed 12/11/23 01/07/24 07:25 Patient Tobacco Use Status Never used Tobacco 01/07/24 07:25 e-Cigarette/Vaping Use Never Used 01/07/24 07:25 Thrive Assessment: Date of Thrive Assessment Date Thrive assessed 12/11/23 01/07/24 07:25 Const General: cooperative Orientation/consciousness: patient oriented x3 Neuro General: patient oriented x3 Psych Appearance: grossly normal Mental Status: mental status grossly normal Speech and movement: Clear speech present Affect: normal affect Attitude: cooperative Thought process: Normal thought process present Thought content: Normal thought content present Insight: Good insight present (Psych) Judgement: Good judgement present (Psych) Assessment and Plan Assessment & Plan (1) Newly diagnosed diabetes: Code(s): E11.9 - Type 2 diabetes mellitus without complications Plan: working on diet and exercise, seeing NN tomorrow, i will see the pt in approx 1 month for a follow up (2) Dyslipidemia: Code(s): E78.5 - Hyperlipidemia, unspecified Plan: on statin, ezetimibe, fenofibric acid (3) Fatty liver: Code(s): K76.0 - Fatty (change of) liver, not elsewhere classified Plan: working on diet (4) High triglycerides: Code(s): E78.1 - Pure hyperglyceridemia Plan: 3 choles meds, will recheck levels in near future Plan The patient agreed to the use of a medical records auditor for this encounter. Scribed for GILSON Islas by Emeli Burgos medical records auditor, on 01/07/2024 at 07:20 EST. Orders: Referrals Ophthalmology Referral E11.9 - Type 2 diabetes mellitus without complications Medications: New lovastatin 40 mg PO QPM 90 tabs 0RF Discontinued fluvastatin Discontinued Reason: Duplicate 20 mg PO QPM 90 caps 0RF Coding Level of Care Code Tele Est Pt Level 3 (98935) Diagnoses Newly diagnosed diabetes E11.9 Dyslipidemia E78.5 Fatty liver K76.0 High triglycerides E78.1
== END 2024-01-07 08:24 | disposition home or self-care (01) ==
PROVIDERS: PCP Nurse Practitioner Family; Visit Provider Nurse Practitioner Family
DX: E11.69 Type 2 diabetes mellitus with other specified complication (principal); E78.5 Hyperlipidemia, unspecified; K76.0 Fatty (change of) liver, not elsewhere classified; E78.1 Pure hyperglyceridemia
CPT/HCPCS: 99213

== ENCOUNTER 2024-01-13 10:30 | Outpatient (REF) | payer OTHER, SELFPAY ==
--- NOTE | ~2024-01-13 | US_ITS ---
EXAMINATION: US SOFT TISSUE NECK CLINICAL INFORMATION: Left neck swelling beneath the angle of the distal. COMPARISON: None available. TECHNIQUE: Ultrasound of the neck soft tissues is performed with high- frequency de la cruz-scale imaging and color Doppler. FINDINGS: The patient directed the civil preparedness coordinator to the area of concern labeled as level 5A. No sonographic abnormality is seen in the area of concern. US/US soft tiss head and/or neck IMPRESSION: No sonographic abnormality is seen in the area of concern. Clinical correlation and follow-up are necessary. Consider CT or MRI of the neck with intravenous contrast if clinically indicated.
== END 2024-01-13 10:31 | disposition home or self-care (01) ==
LOC: HO.HMGCX 10:30
PROVIDERS: PCP Nurse Practitioner Family; Visit Provider Internal Medicine
DX: R22.1 Localized swelling, mass and lump, neck (principal)
CPT/HCPCS: 76536

== ENCOUNTER 2024-01-27 14:02 | Outpatient (AMB) | payer OTHER, SELFPAY ==
--- NOTE | 2024-01-27 14:04 | MHC.OFFVIS ---
Vital Signs 01/27/24 14:08 Height 5 ft 6 in Weight 198 lb BMI 32.0 BP 130/76 Blood Pressure Location Lt brachial Position Sitting Pulse 78 Intake Visit Reasons: abnormal lab Intake Note: Patient new consult for abnormal lab results. Patient cc: heartburn, constipation, and denies any other GI issues for today. Electromechanical Assembly Technician Required: No Accompanied by: Self / Same As Patient Allergies Sulfa (Sulfonamide Antibiotics) [SULFA(SULFONAMIDE ANTIBIOTICS)] Allergy (Unknown, Verified 01/27/24 14:03) UNKNOWN, Rash, hives HPI Comments Details: A 33-year-old male seen 2020 with fatty liver preferred back with elevated liver enzymes- he says he is taking 3 different meds for cholesterol- Glucose is elevated as well- He has made dietary modifications- sees communication instructor- lost about 15 pounds= he overall is feeling better has more energy He prefers to manage without medication Reviewed most recent labs shows elevated AST, ALT as well as lipid panel. Viral serologies show immunity to hepatitis-B Reviewed abdominal ultrasound He has no GI or general No nausea, vomiting, hematemesis, hematochezia fever or chills He is doing repeated blood work for PCP [facility] Medical History (Updated 01/28/24 @ 13:53 by Micaela June PA-C) Fatty liver GERD (gastroesophageal reflux disease) Abnormal liver function tests Vitamin D deficiency Obesity Hyperparathyroidism Postablative hypothyroidism Surgical History H/O radioactive iodine thyroid ablation Hx of partial nephrectomy Family History Father Diabetes mellitus HTN (hypertension) Mother HTN (hypertension) Hyperlipidemia Maternal Grandmother Hypothyroidism Social History Household Members: Spouse and Children Household Members Other:: baby due in january Housing: House Alcohol intake: never Patient Tobacco Use Status: Never used Tobacco e-Cigarette/Vaping Use: Never Used Second Hand Smoke Exposure: No Current occupational status: employed Current occupation: [employer] Current occupational exposures/hazards: No Cognitive needs: No Hearing needs: No Vision needs: Yes Review of Systems Const All systems reviewed & are unremarkable except as noted in HPI and below Physical Exam Vital Signs: Last Vital Signs Pulse 78 01/27/24 14:08 BP 130/76 01/27/24 14:08 BMI result Body Mass Index 32.0 Const General: cooperative, healthy appearing, comfortable and no acute distress Nutritional Appearance: overweight Orientation/consciousness: patient oriented x3 Limitations: no limitations Eyes Sclerae: sclerae normal Resp Effort & Inspection: normal respiratory effort and able to speak in complete sentences Skin General skin exam: no rashes or lesions noted Neuro General: patient oriented x3 Extrem General: Yes full ROM Psych Appearance: grossly normal and well kempt Mental Status: mental status grossly normal Speech and movement: Normal speech and movement present and Clear speech present Affect: normal affect Attitude: cooperative Thought content: Normal thought content present Insight: Good insight present (Psych) Judgement: Good judgement present (Psych) Results Reviewed Results Reviewed: 11/29- US/US abdomen complete IMPRESSION: 1. Hepatomegaly, 22.1 cm. Increased hepatic parenchymal heterogeneity and echogenicity could be associated with hepatocellular disease/hepatic steatosis and severely limits visualization. Correlation with liver function tests and clinical exam recommended to determine further management. 2. Status post partial left nephrectomy. Assessment & Plan Assessment & Plan (1) Fatty liver: Comment: Very pleasant 33-year-old Gent NAFLD Lipid panel Diabetes Overweight Fatty liver Negative viral serologies Code(s): K76.0 - Fatty (change of) liver, not elsewhere classified Category: Medical Plan: Complete liver lab workup ASMA AMA JESSI ETc (2) High triglycerides: Code(s): E78.1 - Pure hyperglyceridemia Category: Medical Plan: Continue follow-up with PCP/medical Dietary modification (3) Newly diagnosed diabetes: Code(s): E11.9 - Type 2 diabetes mellitus without complications Category: Medical (4) Elevated liver enzymes: Comment: Likely plays a role -NAFLD Lipid panel Diabetes Overweight Fatty liver Negative viral serologies Code(s): R74.8 - Abnormal levels of other serum enzymes Category: Medical Plan: Complete liver workup labs Plan Dietary and lifestyle modification Update labs-plan of care depends on values plan Orders: Orders JESSI Reflex Titer and Pattern 01/27/24 R74.01 - Elevation of levels of liver transaminase levels Alpha 1 Anti-trypsin 01/27/24 R74.01 - Elevation of levels of liver transaminase levels Soluble Liver Ag Autoantibody 01/27/24 E11.9 - Type 2 diabetes mellitus without complications, E78.1 - Pure hyperglyceridemia, K76.0 - Fatty (change of) liver, not elsewhere classified Smooth Muscle Antibody 01/27/24 R74.8 - Abnormal levels of other serum enzymes Mitochondrial Antibody 01/27/24 R74.01 - Elevation of levels of liver transaminase levels Medications: New pantoprazole 20 mg PO QAM 30 tabs 6RF Patient Instructions: Continue with Lifestyle dietary modification- Good cholesterol, glucose and weight control abstain from alcohol Update labs Plan of care dependent on above Coding Level of Care Code Tele New Pt Level 3 (04620) Diagnoses Fatty liver K76.0 High triglycerides E78.1 Newly diagnosed diabetes E11.9 Elevated liver enzymes R74.8 Time Spent (min) 30
[2024-01-27 14:08] VITALS: BP 130/76; PULSE 78; BMI 32.0
== END 2024-01-27 15:45 | disposition home or self-care (01) ==
PROVIDERS: PCP Nurse Practitioner Family; Visit Provider Physician Assistant
DX: K76.0 Fatty (change of) liver, not elsewhere classified (principal); E78.1 Pure hyperglyceridemia; E11.9 Type 2 diabetes mellitus without complications; R74.8 Abnormal levels of other serum enzymes
CPT/HCPCS: 99203

== ENCOUNTER → 2024-01-27 14:02 | Outpatient (BNVA) | payer OTHER, SELFPAY | PROVIDERS: PCP Nurse Practitioner Family; Visit Provider Physician Assistant ==

== ENCOUNTER 2024-01-28 08:29 | Outpatient (REF) | payer OTHER, SELFPAY ==
--- NOTE | ~2024-01-28 | CT_ITS ---
EXAMINATION: CT ABDOMEN AND PELVIS WITH CONTRAST CLINICAL INFORMATION: Abnormal liver function tests. COMPARISON: Abdominal ultrasound 11/28/2023. CT abdomen and pelvis 08/11/2017. TECHNIQUE: Multidetector volumetric images were obtained from the superior aspect of the liver through the pubic symphysis following administration 85 mL of Omnipaque 350 intravenous contrast. Sagittal and coronal reformatted images were obtained on the technologist's workstation. Oral contrast: No This CT examination was performed using dose optimization techniques as appropriate, variously including the following: *Automated exposure control *Adjustment of mA and/or kV according to patient size (this includes techniques or standardized protocols for targeted exams where dose is matched to indication/reason for exam; i.e. extremities or head) *Use of iterative reconstruction technique DLP: 414 mGy-cm FINDINGS: LUNG BASES: The visualized lung bases are unremarkable. LIVER, GALLBLADDER, AND BILIARY TREE: The liver is enlarged measuring 20 cm in right lobe length. The liver is hypoattenuating relative to the spleen consistent with steatosis. A discrete mass is not seen. There is no biliary ductal dilatation. There is likely sparing along the gallbladder fossa. The main portal vein is patent. PANCREAS: No discrete pancreatic mass or pancreatic ductal dilatation. SPLEEN: The spleen is not enlarged. ADRENAL GLANDS: No adrenal mass. KIDNEYS AND URETERS: Focal thinning in the upper pole left kidney consistent with history of partial nephrectomy. No visible local recurrence. No nephrolithiasis or hydronephrosis. BLADDER: No discrete mass. No bladder calculus. GASTROINTESTINAL TRACT: The small and large bowel are normal in caliber. No mesenteric mass. ABDOMINAL WALL: No significant hernia is appreciated. LYMPH NODES: No adenopathy. VASCULAR: No aortic aneurysm. The portal vein and IVC are patent. PELVIC VISCERA: Unremarkable. OSSEOUS STRUCTURES: No suspicious osseous lesions. CT/CT abdomen pelvis w IV con IMPRESSION: Enlarged steatotic liver without morphologic cirrhosis or focal liver mass. No biliary ductal dilatation. Focal thinning in the upper pole the left kidney consistent with history of partial nephrectomy. No visible local recurrence.
[2024-01-28] MEDS: iohexoL 350 MG/ML 100 ML INFUS..BTL 85 ML IV (09:29)
== END 2024-01-28 08:30 | disposition home or self-care (01) ==
LOC: HO.CT 08:29
PROVIDERS: PCP Nurse Practitioner Family; Visit Provider Nurse Practitioner Family
DX: R94.5 Abnormal results of liver function studies (principal); R93.5 Abnormal findings on diagnostic imaging of other abdominal regions, including retroperitoneum
CPT/HCPCS: 74177; Q9967

== ENCOUNTER 2024-05-11 09:15 | Outpatient (REF) | payer OTHER, SELFPAY ==
[2024-05-11 14:02] LABS: Estimated Average Glucose 97 mg/dL
[2024-05-12 09:38] LABS: Alpha 1 Anti-trypsin 119 mg/dL (83-199)
[2024-05-13 15:08] LABS: Anti Nuclear Antibody Screen NEGATIVE (NEGATIVE)
[2024-05-17 06:49] LABS: Soluble Liver Ag Autoantibody <20.1 U (0.0-20.0)
[2024-05-17 13:23] LABS: Mitochondrial Antibodies NEGATIVE (NEGATIVE)
[2024-05-19 13:58] LABS: Smooth Muscle Antibody <20 U (<20)
== END 2024-05-11 09:16 | disposition home or self-care (01) ==
LOC: HO.HMGCLDS 09:15
PROVIDERS: Physician Assistant; PCP Nurse Practitioner Family; Visit Provider Nurse Practitioner Family
DX: E11.9 Type 2 diabetes mellitus without complications (principal); R74.01 Elevation of levels of liver transaminase levels; E78.1 Pure hyperglyceridemia; K76.0 Fatty (change of) liver, not elsewhere classified; R74.8 Abnormal levels of other serum enzymes
CPT/HCPCS: 36415; 82103; 83036; 83520; 86015; 86038; 86381

== ENCOUNTER 2024-06-17 09:41 | Outpatient (AMB) | payer OTHER, SELFPAY ==
--- NOTE | 2024-06-17 09:42 | MHC.OFFWIV ---
Intake Vital Signs 06/17/24 09:43 Height 5 ft 6 in Weight 199 lb BMI 32.1 BP 130/90 H Blood Pressure Location Rt brachial Position Sitting Pulse 55 Pulse Source Pulse Oximeter Temp 98.1 F Temp Source Oral Pulse Oximetry (%) 98 Oxygen Delivery Method Room Air Intake Visit Reasons: EP Sore throat Intake Note: Patient here for sore throat and bilat ears are bothersome which started Friday night. Patient Tobacco Use Status: Never used Tobacco Allergies Sulfa (Sulfonamide Antibiotics) [SULFA(SULFONAMIDE ANTIBIOTICS)] Allergy (Unknown, Verified 06/17/24 09:43) UNKNOWN, Rash, hives Do you need a note to return to daycare/school/sports/work: Yes HPI HPI Comments History of Present Illness Details 33 y/o male patient who presents to the walk in clinic with c/o URI symptoms. Pt c/o GI symptoms since diarrhea since last Friday. C/o throat pain since yesterday. Denies fevers, or chills. Reports nausea and vomiting. [facility] Medical History Fatty liver GERD (gastroesophageal reflux disease) Abnormal liver function tests Vitamin D deficiency Obesity Hyperparathyroidism Postablative hypothyroidism Surgical History H/O radioactive iodine thyroid ablation Hx of partial nephrectomy Family History Father Diabetes mellitus HTN (hypertension) Mother HTN (hypertension) Hyperlipidemia Maternal Grandmother Hypothyroidism Social History Household Members: Spouse and Children Household Members Other:: baby due in january Housing: House Alcohol intake: never Patient Tobacco Use Status: Never used Tobacco e-Cigarette/Vaping Use: Never Used Second Hand Smoke Exposure: No Current occupational status: employed Current occupation: [employer] Current occupational exposures/hazards: No Cognitive needs: No Hearing needs: No Vision needs: Yes Review of Systems Const All systems reviewed & are unremarkable except as noted in HPI and below Physical Exam Vital Signs: Last Vital Signs Temp 98.1 F 06/17/24 09:43 Pulse 55 06/17/24 09:43 BP 130/90 H 06/17/24 09:43 Pulse Ox 98 06/17/24 09:43 Oxygen Delivery Method Room Air 06/17/24 09:43 BMI result Body Mass Index 32.1 Const General: cooperative and comfortable Nutritional Appearance: obese Orientation/consciousness: patient oriented x3 HEENT Head: Yes normocephalic Ears: external ears normal and TM abnormal with fluid behind the TM bilateral General nose exam: Normal nasal mucous membranes and turbinates present Face and sinus: Yes sinuses nontender Mouth: moist mucous membranes Throat: Yes postnasal drainage Resp Effort & Inspection: normal respiratory effort and able to speak in complete sentences Auscultation: clear to auscultation bilaterally, no crackles, no rales, no rhonchi and no wheezes Cardio Heart sounds: S1 normal heart sound present and S2 normal heart sound present GI Inspection: Yes obesity Palpation (GI): Soft to palpation, not firm, nontender, no guarding, not rigid and No hepatosplenomegaly present Auscultation: Hypoactive bowel sounds present Neuro General: patient oriented x3 Assessment & Plan Assessment & Plan (1) Acute pharyngitis: Code(s): J02.9 - Acute pharyngitis, unspecified Qualifiers: Pharyngitis/tonsillitis etiology: unspecified etiology Qualified Code(s): J02.9 - Acute pharyngitis, unspecified Plan: OTC sore-throat remedies Warm fluids with honey Rapid Strept negative Rest Acetaminophen for pain relief. Gem diet Avoid Oily and greasy foods. (2) Upper respiratory infection: Code(s): J06.9 - Acute upper respiratory infection, unspecified Qualifiers: URI type: unspecified URI Qualified Code(s): J06.9 - Acute upper respiratory infection, unspecified Plan: OTC sore-throat remedies Warm fluids with honey Rapid Strept negative Rest Acetaminophen for pain relief. Gem diet Avoid Oily and greasy foods. (3) Nausea vomiting and diarrhea: Code(s): R11.2 - Nausea with vomiting, unspecified; R19.7 - Diarrhea, unspecified Plan: OTC sore-throat remedies Warm fluids with honey Rapid Strept negative Rest Acetaminophen for pain relief. Gem diet Avoid Oily and greasy foods. Medications: New ondansetron 8 mg PO Q8H 20 tabs 0RF R11.2 - Nausea with vomiting, unspecified, R19.7 - Diarrhea, unspecified metoclopramide HCl (Reglan) 10 mg PO Q6H PRN 20 tabs 0RF nausea and vomiting R11.2 - Nausea with vomiting, unspecified, R19.7 - Diarrhea, unspecified Coding Level of Care Code Est Pt Level 3 (57267) Diagnoses Acute pharyngitis, unspecified etiology J02.9 Pharyngitis/tonsillitis etiology: unspecified etiology Upper respiratory tract infection, unspecified type J06.9 URI type: unspecified URI Nausea vomiting and diarrhea R11.2; R19.7 Time Spent (min) 15
[2024-06-17 09:43] VITALS: BP 130/90; PULSE 55; TEMP 36.7; O2SAT 98; BMI 32.1
== END 2024-06-17 10:33 | disposition home or self-care (01) ==
PROVIDERS: PCP Nurse Practitioner Family; Visit Provider Nurse Practitioner Family
DX: J02.9 Acute pharyngitis, unspecified (principal); J06.9 Acute upper respiratory infection, unspecified; R11.2 Nausea with vomiting, unspecified; R19.7 Diarrhea, unspecified
CPT/HCPCS: 87880; 99213

== ENCOUNTER 2024-06-18 08:03 | Outpatient (AMB) | payer OTHER, SELFPAY ==
--- NOTE | 2024-06-18 08:13 | A.OFFVIS_ITS ---
Intake Visit Reasons: OV - Discuss RT CTR Intake Note: Rosendo is a 33 year old right hand dominant male who presents today for his right hand Carpal Tunnel Syndrome. He had an EMG on 06/06/23 and was last seen in office on 07/30/2023 w/ AR Pt states he is having Pt states he is having numbness and tingling in his right hand and fingers. Pt states he feels like his fingers try to lock on him. Allergies Sulfa (Sulfonamide Antibiotics) [SULFA(SULFONAMIDE ANTIBIOTICS)] Allergy (Unknown, Verified 06/18/24 08:16) UNKNOWN, Rash, hives HPI HPI OV - Discuss RT CTR: Details: Patient is a 33-year-old male who presents for evaluation of right carpal tunnel syndrome and discussion of surgery. Patient states that he was supposed to have surgery last year, but he had to cancel. Since then, the patient states that his numbness and tingling has gotten worse, but it is still intermittent, but daily, and much worse at night. The patient also states that his numbness and pain get worse when he uses his hand frequently throughout the course of the day. The patient also reports that he has begun to experience some numbness and tingling in his left hand. No other acute complaints or concerns at this time. [facility] Medical History Fatty liver GERD (gastroesophageal reflux disease) Abnormal liver function tests Vitamin D deficiency Obesity Hyperparathyroidism Postablative hypothyroidism Surgical History H/O radioactive iodine thyroid ablation Hx of partial nephrectomy Family History Father Diabetes mellitus HTN (hypertension) Mother HTN (hypertension) Hyperlipidemia Maternal Grandmother Hypothyroidism Social History Household Members: Spouse and Children Household Members Other:: baby due in january Housing: House Alcohol intake: never Patient Tobacco Use Status: Never used Tobacco e-Cigarette/Vaping Use: Never Used Second Hand Smoke Exposure: No Current occupational status: employed Current occupation: [employer] Current occupational exposures/hazards: No Cognitive needs: No Hearing needs: No Vision needs: Yes Review of Systems Const All systems reviewed & are unremarkable except as noted in HPI and below Physical Exam Extrem Other: Neuro: Normal sensation of the tips of all digits of bilateral hands at this time No thenar or intrinsic wasting. Good APB muscle firing and good finger cross. Vascular: Capillary refill brisk. ROM: Patient can make a fist and extend all their digits. Skin: No lacerations or abrasions noted. General: No ecchymosis. No erythema or evidence of infection. Results Reviewed Results Reviewed: IMPRESSION: 1. This is an abnormal study. 2. 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 3. There is no electrodiagnostic evidence for ulnar neuropathy, brachial plexopathy, or cervical radiculopathy. Thank you for your kind referral. Kalyn Rogers MD, JOSE E Board Certified, [place] [employer] and Rehabilitation (ABPMR) Board Certified, [place] Board [employer] Electrodiagnostic Medicine (ABEM) Assessment & Plan Assessment & Plan (1) Carpal tunnel syndrome of right wrist: Code(s): G56.01 - Carpal tunnel syndrome, right upper limb Category: Medical (2) Numbness and tingling of left hand: Code(s): R20.0 - Anesthesia of skin; R20.2 - Paresthesia of skin Category: Medical Plan 1. Carpal tunnel syndrome, right Symptoms intermittent, daily, worse at night I educated the patient about the condition. I discussed both operative and nonoperative treatment options. The patient would like to proceed with surgery. The risks and benefits of operative treatment were discussed with the patient and the patient wishes to proceed with surgery. These risks include, but are not limited to, risk of damage to blood vessels, nerves, tendons, infection, recurrence, incomplete relief of preoperative symptoms, persistent pain, possible need for further surgery, and the risks associated with regional blocks and/or anesthesia. Plan is to take the patient to the operating room at some point in the next few weeks for the following procedures: 1. Right carpal tunnel release under local anesthesia All of the preoperative paperwork including the consent was discussed today. All of the patient's questions were answered in the clinic today. The patient understands that they will be in contact with our surgical product sales consultant to discuss scheduling their procedure. Patient denies diabetes, blood thinners, asthma, heart issues, lung issues, kidney issues, or current smoking. 2. Numbness and tingling of left hand Symptoms intermittent, not daily At this time, the patient would like to proceed with operative treatment on the right side before pursuing EMG or nerve conduction study on the left Patient states that he has begun recovery from his surgery, he would be more open to having EMG done on the left Patient will follow-up as needed with any acute concerns Coding Level of Care Code Est Pt Level 4 (92255) Diagnoses Carpal tunnel syndrome of right wrist G56.01 Numbness and tingling of left hand R20.0; R20.2
== END 2024-06-18 08:43 | disposition home or self-care (01) ==
PROVIDERS: PCP Nurse Practitioner Family
DX: G56.01 Carpal tunnel syndrome, right upper limb (principal)
CPT/HCPCS: 99214

== ENCOUNTER → 2024-06-18 08:03 | Outpatient (BNVA) | payer OTHER, SELFPAY | PROVIDERS: PCP Nurse Practitioner Family | DX: G56.01 Carpal tunnel syndrome, right upper limb (principal); R20.0 Anesthesia of skin; R20.2 Paresthesia of skin | CPT/HCPCS: 99212 ==

== ENCOUNTER 2024-08-23 08:27 | Outpatient (AMB) | payer OTHER, SELFPAY ==
[2024-08-23 08:31] VITALS: BP 130/82; PULSE 76; O2SAT 98; BMI 32.8
--- NOTE | 2024-08-23 08:31 | A.OFFPC_ITS ---
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 Required: No Accompanied by: Self / Same As Patient Allergies Sulfa (Sulfonamide Antibiotics) [SULFA(SULFONAMIDE ANTIBIOTICS)] Allergy (Unknown, Verified 08/23/24 08:31) UNKNOWN, Rash, hives Medication List - Last Reconciled 08/23/24 by GILSON Gaytan blood-glucose meter (FreeStyle Lite Meter kit) As directed FreeStyle Lite Strips (blood sugar diagnostic) Test blood sugar twice a day NS lancets (FreeStyle Lancets) Test blood sugar twice a day Levoxyl (levothyroxine) 150 mcg PO DAILY NS losartan 25 mg PO DAILY lovastatin 40 mg PO QPM Tobacco use date assessed: 12/11/23 Dental Screening Dental Screen Date: 12/11/23 HPI Annual PE HPI Details Pt is here for a PE. Will order labs. Pt is a diabetic, on an ARB and a statin. Due for A1C and microalbumin, will order. Denies polyuria, polydipsia, and neuropathy. Pt denies any signs and symptoms of hypoglycemia and does know how to correct it. Pt will schedule his own eye exam. [facility] Medical History Fatty liver GERD (gastroesophageal reflux disease) Abnormal liver function tests Vitamin D deficiency Obesity Hyperparathyroidism Postablative hypothyroidism Surgical History H/O radioactive iodine thyroid ablation Hx of partial nephrectomy Family History Father Diabetes mellitus HTN (hypertension) Mother HTN (hypertension) Hyperlipidemia Maternal Grandmother Hypothyroidism Social History Household Members: Spouse and Children Household Members Other:: baby due in january Housing: House Alcohol intake: never Patient Tobacco Use Status: Never used Tobacco e-Cigarette/Vaping Use: Never Used Second Hand Smoke Exposure: No Current occupational status: employed Current occupation: [employer] Current occupational exposures/hazards: No Cognitive needs: No Hearing needs: No Vision needs: Yes Questionnaire PHQ-9 Over the last 2 weeks, how often have you been bothered by any of the following problems? 1. Little interest or pleasure in doing things: not at all 2. Feeling down, depressed, or hopeless: not at all 3. Trouble falling or staying asleep, or sleeping too much: not at all 4. Feeling tired or having little energy: not at all 5. Poor appetite or overeating: not at all 6. Feeling bad about yourself - or that you are a failure or have let yourself or your family down: not at all 7. Trouble concentrating on things, such as reading the newspaper or watching television: not at all 8. Moving or speaking so slowly that other people could have noticed. Or the opposite - being so fidgety or restless that you have been moving around a lot more than usual: not at all 9. Thoughts that you would be better off or of hurting yourself in some way: not at all Total score: 0 Depression Screening Interpretation: Negative Depression Screening Done: Yes 28741 - PHQ-9 Billing: Yes Source: Developed by Drs. Alan Murillo, Wilma Conrad, Emmanuel Lr and colleagues, with an educational guillaume from [employer]. Thrive Questionnaire Date Thrive assessed: 08/23/24 I am a: Patient What is your living situation today?: I have a steady place to live Within the past 12 months, did the food you bought not last and you didn't have the money to get more?: Never true Within the past 12 months, did you worry whether your food would run out before you got money to buy more?: Never true Do you have trouble paying for medicines?: No Do you have trouble getting transportation to medical appointments?: No Do you have trouble paying your heating and electricity bill?: No Do you have trouble taking care of your child, family member or friend?: No Do you have trouble with day-to-day activities such as bathing, preparing meals, shopping, managing finances, etc.?: No Are you currently unemployed and looking for a job?: No Are you interested in more education?: No Please select the resources that you would like help with: None Currently or been in a relationship where the following occur: No concerns reported THRIVE Score: 0 AUDIT C Alcohol Use Questionnaire (AUDIT-C) 1. How often do you have a drink containing alcohol?: Never 2. How many drinks containing alcohol do you have on a typical day when you are drinking?: 1 or 2 3. How often do you have six or more drinks on one occasion?: Never Total Score: 0 Score Reviewed/Action Taken: Yes LEFTY-7 AMB Questionnaire LEFTY-7 Date LEFTY - 7 assessed: 08/23/24 Feeling nervous, anxious, or on edge: 0 = Not at all Not being able to stop or control worryin = Not at all Worrying too much about different things: 0 = Not at all Trouble relaxin = Not at all Being so restless that it is hard to sit still: 0 = Not at all Becoming easily annoyed or irritable: 0 = Not at all Feeling afraid as if something awful might happen: 0 = Not at all Total LEFTY-7 score (0-4 normal; 5-9 mild; 10-14 moderate; 15-21 severe): 0 Source: Developed by Drs. Alan Murillo, Wilma Conrad, Emmanuel Lr and colleagues, with an educational guillaume from [employer]. LEFTY-7 Assessment Billing LEFTY-7 Assessment Tool: LEFTY-7 Assessment 21879 Review of Systems Const Denies chills and Denies fever(s) Eyes Denies blurry vision ENT Denies vertigo, Denies dizziness and Denies sore throat Card Denies chest pain at rest, Denies chest pain with activity, Denies diaphoresis, Denies dyspnea and Denies dyspnea on exertion Resp Denies cough, Denies dyspnea, Denies dyspnea on exertion and Denies wheezing GI Denies abdominal pain, Denies melena, Denies hematochezia, Denies constipation, Denies diarrhea and Denies loose stools Denies hematuria Musc Denies numbness and Denies tingling Skin/Breast Denies lesions Neuro Denies vertigo, Denies dizziness, Denies numbness and Denies tingling Psych Denies anxiety, Denies depression, Denies homicidal ideation, Denies suicidal ideation and Denies other (substance abuse) Aller/Immun Denies wheezing Physical exam (Primary Care) Vital Signs: Last Vital Signs Pulse 76 08/23/24 08:31 BP 130/82 08/23/24 08:31 Pulse Ox 98 08/23/24 08:31 Oxygen Delivery Method Room Air 08/23/24 08:31 BMI result Body Mass Index 32.8 Tobacco/Smoking Status: Tobacco use Status Tobacco use date assessed 12/11/23 08/23/24 08:32 Patient Tobacco Use Status Never used Tobacco 08/23/24 08:32 e-Cigarette/Vaping Use Never Used 08/23/24 08:32 PHQ-9: PHQ-9 Score PHQ-9: Total score 0 08/23/24 08:32 Depression Screening Interpretation: Negative Thrive Assessment: Date of Thrive Assessment Date Thrive assessed 08/23/24 08/23/24 08:32 Currently or been in a relationship where the following occur: No concerns repor abbe Const General: cooperative Nutritional Appearance: well nourished Orientation/consciousness: patient oriented x3 HENMT Head: Yes normal to inspection, Yes normocephalic and Yes atraumatic Ears: TM's normal bilaterally Eyes General: appearance normal, both eyes and all related structures Alignment and Position: alignment normal and position normal Neck Neck: Yes normal visual inspection, Yes no lymphadenopathy and Yes supple Resp Effort & Inspection: normal respiratory effort Auscultation: clear to auscultation bilaterally Cardio Rate: regular rate Rhythm: regular rhythm Heart sounds: S1 normal heart sound present, S2 normal heart sound present and no murmurs GI Palpation (GI): Soft to palpation and nontender Auscultation: normal bowel sounds Male General Exam: Yes normal external exam Penis: normal penis Scrotum: scrotum normal, testes descended bilaterally and no inguinal hernias Testes: no testicular mass Skin Rashes: no rashes Neuro General: patient oriented x3, moves all extremities, no focal motor deficits and deep tendon reflexes 2+ bilaterally Romberg Test: Negative Extrem Other: bilat feet: + sensation with use of monofilament, onychomycosis noted bilat Psych Appearance: grossly normal Mental Status: mental status grossly normal Speech and movement: Normal speech and movement present Affect: normal affect Attitude: cooperative Thought process: Normal thought process present Thought content: Normal thought content present Insight: Good insight present (Psych) Judgement: Good judgement present (Psych) Coding Level of Care Code Est Pt Prev Care 18-39y(28064) Diagnoses Physical exam Z00.00 Onychomycosis B35.1 Vitamin D deficiency E55.9 Diabetes E11.9 Additional Codes LEFTY-7 Assessment Billing - LEFTY-7 Assessment Tool: LEFTY-7 Assessment 74901 ([id number]) PHQ-9 - 39576 - PHQ-9 Billing: Yes ([id number]) Assessment & Plan Assessment & Plan (1) Physical exam: Code(s): Z00.00 - Encounter for general adult medical examination without abnormal findings Category: Medical Plan: Labs ordered (2) Onychomycosis: Code(s): B35.1 - Tinea unguium Category: Medical Plan: Referred to podiatry (3) Vitamin D deficiency: Code(s): E55.9 - Vitamin D deficiency, unspecified Category: Medical Plan: Labs ordered (4) Diabetes: Code(s): E11.9 - Type 2 diabetes mellitus without complications Category: Medical Plan: Labs ordered Plan The patient agreed to the use of a biomedical equipment support specialist for this encounter. Scribed for RONI Islas-MILTON by Emeli Burgos biomedical equipment support specialist, on 08/23/2024 at 09:00 EST. Orders: Orders Complete Blood Count Auto Diff Today Z00.00 - Encounter for general adult medical examination without abnormal findings TSH reflex Free T4 Today Z00.00 - Encounter for general adult medical examination without abnormal findings UA CC w/rflx Micro + Cult Today Z00.00 - Encounter for general adult medical examination without abnormal findings Lipid Panel Today Z00.00 - Encounter for general adult medical examination without abnormal findings Vitamin D 25-OH Total Today E55.9 - Vitamin D deficiency, unspecified Hemoglobin A1c Today E11.9 - Type 2 diabetes mellitus without complications Comprehensive [place]. Panel Fast Today Z00.00 - Encounter for general adult medical examination without abnormal findings Microalbumin, Random (w Creat) Today E11.9 - Type 2 diabetes mellitus without complications Referrals Podiatry Referral B35.1 - Tinea unguium
== END 2024-08-23 09:08 | disposition home or self-care (01) ==
PROVIDERS: PCP Nurse Practitioner Family; Visit Provider Nurse Practitioner Family
DX: Z00.00 Encounter for general adult medical examination without abnormal findings (principal); B35.1 Tinea unguium; E55.9 Vitamin D deficiency, unspecified; E11.9 Type 2 diabetes mellitus without complications

== ENCOUNTER → 2024-08-23 08:27 | Outpatient (BNVA) | payer OTHER, SELFPAY | PROVIDERS: PCP Nurse Practitioner Family; Visit Provider Nurse Practitioner Family | DX: Z00.00 Encounter for general adult medical examination without abnormal findings (principal); B35.1 Tinea unguium; E55.9 Vitamin D deficiency, unspecified; E11.9 Type 2 diabetes mellitus without complications | CPT/HCPCS: 96127; 99395 ==

== ENCOUNTER 2024-09-10 08:22 | Outpatient (REF) | payer OTHER, SELFPAY ==
[2024-09-10 11:05] LABS: Influenza A PCR NEGATIVE (Negative); Influenza B PCR NEGATIVE (Negative); Resp Syncy Virus RNA Qual PCR NEGATIVE (Negative); SARS COV2 PCR INHOUSE NEGATIVE (Negative)
== END 2024-09-10 08:23 | disposition home or self-care (01) ==
LOC: HO.LNP 08:22
PROVIDERS: PCP Nurse Practitioner Family; Visit Provider Physician Assistant
DX: J06.9 Acute upper respiratory infection, unspecified (principal); R09.89 Other specified symptoms and signs involving the circulatory and respiratory systems
CPT/HCPCS: 0241U; 99212

== ENCOUNTER 2024-09-10 08:22 | Outpatient (AMB) | payer OTHER, SELFPAY ==
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
[2024-09-10 09:11] VITALS: BP 130/90; PULSE 60; TEMP 36.7; O2SAT 99; BMI 33.1
== END 2024-09-10 09:47 | disposition home or self-care (01) ==
PROVIDERS: PCP Nurse Practitioner Family; Visit Provider Physician Assistant
DX: J06.9 Acute upper respiratory infection, unspecified (principal)

== ENCOUNTER 2024-09-15 08:09 | Outpatient (AMB) | payer OTHER, SELFPAY ==
--- NOTE | 2024-09-15 08:15 | MHC.OFFVIS ---
Intake Visit Reasons: Pre-Rt CTR 09/23/24 Intake Note: Rosendo is a 34 year old right hand dominant male who presents today for a pre-operative visit for his right carpal tunnel release w/ Dr Walker DOS: 09/23/2024. Allergies Sulfa (Sulfonamide Antibiotics) [SULFA(SULFONAMIDE ANTIBIOTICS)] Allergy (Unknown, Verified 09/10/24 09:12) UNKNOWN, Rash, hives HPI HPI Pre-Rt CTR 09/23/24: Details: Patient is a 34-year-old male who presents for preoperative evaluation for right carpal tunnel release, DOS scheduled for 09/1924. Today, the patient reports that his symptoms have remained consistent since previous visit, and they are still intermittent, almost every day, and worse at night. Patient states he would like to still proceed with surgery at this time. No other acute complaints or concerns at this time. [facility] Medical History Fatty liver GERD (gastroesophageal reflux disease) Abnormal liver function tests Vitamin D deficiency Obesity Hyperparathyroidism Postablative hypothyroidism Surgical History H/O radioactive iodine thyroid ablation Hx of partial nephrectomy Family History Father Diabetes mellitus HTN (hypertension) Mother HTN (hypertension) Hyperlipidemia Maternal Grandmother Hypothyroidism Social History Household Members: Spouse and Children Household Members Other:: baby due in january Housing: House Alcohol intake: never Patient Tobacco Use Status: Never used Tobacco e-Cigarette/Vaping Use: Never Used Second Hand Smoke Exposure: No Current occupational status: employed Current occupation: [employer] Current occupational exposures/hazards: No Cognitive needs: No Hearing needs: No Vision needs: Yes Review of Systems Const All systems reviewed & are unremarkable except as noted in HPI and below Physical Exam Extrem Other: Neuro: Normal sensation of the tips of all digits of bilateral hands at this time No thenar or intrinsic wasting. Good APB muscle firing and good finger cross. Vascular: Capillary refill brisk. ROM: Patient can make a fist and extend all their digits. Skin: No lacerations or abrasions noted. General: No ecchymosis. No erythema or evidence of infection. Results Reviewed Results Reviewed: IMPRESSION: 1. This is an abnormal study. 2. 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 3. There is no electrodiagnostic evidence for ulnar neuropathy, brachial plexopathy, or cervical radiculopathy. Thank you for your kind referral. Kalyn Rogers MD, JOSE E Board Certified, [place] [employer] and [employer] (ABPMR) Board Certified, [place] [employer] Electrodiagnostic [employer] (ABEM) Assessment & Plan Assessment & Plan (1) Carpal tunnel syndrome of right wrist: Code(s): G56.01 - Carpal tunnel syndrome, right upper limb Category: Medical (2) Numbness and tingling of left hand: Code(s): R20.0 - Anesthesia of skin; R20.2 - Paresthesia of skin Category: Medical Plan 1. Carpal tunnel syndrome, right Symptoms intermittent, daily, worse at night I educated the patient about the condition. I discussed both operative and nonoperative treatment options. The patient would like to proceed with surgery. The risks and benefits of operative treatment were discussed with the patient and the patient wishes to proceed with surgery. These risks include, but are not limited to, risk of damage to blood vessels, nerves, tendons, infection, recurrence, incomplete relief of preoperative symptoms, persistent pain, possible need for further surgery, and the risks associated with regional blocks and/or anesthesia. Plan is to take the patient to the operating room at some point in the next few weeks for the following procedures: 1. Right carpal tunnel release under local anesthesia All of the preoperative paperwork including the consent was discussed today. All of the patient's questions were answered in the clinic today. The patient understands that they will be in contact with our neurosurgical physician assistant to discuss scheduling their procedure. Patient denies diabetes, blood thinners, asthma, heart issues, lung issues, kidney issues, or current smoking. 2. Numbness and tingling of left hand Symptoms intermittent, not daily At this time, the patient would like to proceed with operative treatment on the right side before pursuing EMG or nerve conduction study on the left Patient states that he has begun recovery from his surgery, he would be more open to having EMG done on the left Patient will follow-up as needed with any acute concerns Coding Level of Care Code Est Pt Level 4 (33843) Diagnoses Carpal tunnel syndrome of right wrist G56.01 Numbness and tingling of left hand R20.0; R20.2
== END 2024-09-15 08:26 | disposition home or self-care (01) ==
PROVIDERS: PCP Nurse Practitioner Family
DX: G56.01 Carpal tunnel syndrome, right upper limb (principal); R20.0 Anesthesia of skin; R20.2 Paresthesia of skin
CPT/HCPCS: 99214

== ENCOUNTER → 2024-09-15 08:09 | Outpatient (BNVA) | payer OTHER, SELFPAY | PROVIDERS: PCP Nurse Practitioner Family | DX: Z01.818 Encounter for other preprocedural examination (principal); G56.01 Carpal tunnel syndrome, right upper limb; R20.0 Anesthesia of skin; R20.2 Paresthesia of skin | CPT/HCPCS: 99212 ==

== ENCOUNTER 2025-01-03 08:49 | Outpatient (REF) | payer OTHER, SELFPAY ==
[2025-01-03 10:14] LABS: Basophils Percent Auto 0.6 % (0-2); Eosinophils Absolute Auto 0.2 X10*3/uL (0.0-0.4); Eosinophils Percent Auto 3.1 % (0-4); Hematocrit 40.8 % (42.0-52.0); Hemoglobin 13.9 g/dl (14.0-18.0); Imm Gran Abs Auto 0.02 X10*3/uL (0.00-0.03); Imm Gran Pct Auto 0.3 % (0.0-0.4); Lymphocytes Absolute Auto 2.9 X10*3/uL (1.2-4.9); MANUAL DIFF FLAG SCAN; Mean Corpuscular HGB Conc 34.1 g/dl (31.0-36.0); Mean Corpuscular Hemoglobin 27.6 pg (27.0-33.0); Mean Platelet Volume 10.7 fL (9.4-12.4); Monocytes Absolute Auto 0.4 X10*3/uL (0.1-1.2); Monocytes Percent Auto 6.7 % (2-11); Neutrophils Absolute Auto 2.8 x10*3/uL (2.0-8.3); Neutrophils Percent Auto 43.3 % (45-73); Platelet Count 208 X10*3/uL (160-400); Red Blood Count 5.04 X10*6/uL (4.60-5.80); Red Cell Distribution Width 13.2 % (11.0-16.0); SCAN SMEAR FLAG 1; White Blood Count 6.4 X10*3/uL (4.8-10.8)
[2025-01-03 10:17] LABS: Appearance Urine Clear; Color Urine Yellow; Glucose Urine UA Negative (Negative); Leukocyte Esterase Urine Negative (Negative); Nitrite Urine Negative (Negative); PH 6.5 (5.0-9.0); Specific Gravity - Urine 1.025 (1.005-1.025); UMIC TRIGGER UACC YES; Urine Blood Negative (Negative); Urine Ketones Trace mg/dL (Negative); Urine Protein 30 (1+) mg/dL (Neg-Trace)
[2025-01-03 10:23] LABS: Bacteria Urine None Seen (None Seen); Hyaline Casts Urine 0-2 /LPF (0-2); RBC Urine 0-2 /HPF (0-2); Squamous Epithelial Cell Urine 0-2 /HPF (0-2); WBC Urine 0-5 /HPF (0-5)
[2025-01-03 10:31] LABS: Estimated Average Glucose 134 mg/dL; Hemoglobin A1c % 6.3 % (<6.0); Total Hemoglobin (HGBA1C) 3687.2844 umol/L
[2025-01-03 10:40] LABS: SLIDE REVIEW VERIFIED
[2025-01-03 11:04] LABS: Alanine Aminotransferase 151 U/L (0-40); Albumin Level 4.4 g/dL (3.5-5.0); Alkaline Phosphatase 65 U/L (39-117); Anion Gap 14 (12-20); Aspartate Amino Transferase 81 U/L (5-37); Bilirubin Total 1.4 mg/dL (0.0-1.0); Blood Urea Nitrogen 15 mg/dL (9-16); Calcium 9.3 mg/dL (8.4-10.2); Carbon Dioxide 26 mmol/L (22-29); Chloride 104 mmol/L (96-108); Cholesterol 161 mg/dL (<200); Estimated Glomerular Filt Rate > 60; Glucose Fasting 159 mg/dL (60-99); HDL Cholesterol 27 mg/dL (>40); LDL Cholesterol Calculated 76 mg/dL (<100); Potassium 3.8 mmol/L (3.3-5.1); Sodium 140 mmol/L (135-145); TSH reflex Free T4 3.57 uIU/mL (0.32-4.0); Total Protein 8.2 g/dL (6.5-8.0); Triglycerides 293 mg/dL (<150); Vitamin D 25-OH Total 36.2 ng/mL (>30)
[2025-01-03 11:13] LABS: Creatinine Urine 194.39 mg/dL; Microalbum/Creatinine Ratio Ur 39.6 ug/mg cr (<30)
== END 2025-01-03 08:50 | disposition home or self-care (01) ==
LOC: HO.HMGCLDS 08:49
PROVIDERS: PCP Nurse Practitioner Family; Visit Provider Nurse Practitioner Family
DX: Z00.00 Encounter for general adult medical examination without abnormal findings (principal); E11.9 Type 2 diabetes mellitus without complications; E55.9 Vitamin D deficiency, unspecified
CPT/HCPCS: 36415; 80053; 80061; 81001; 81003; 82043; 82306; 82570; 83036; 84443; 85025

== ENCOUNTER 2025-01-05 13:02 | Outpatient (AMB) | payer OTHER, SELFPAY ==
--- NOTE | 2025-01-05 13:14 | A.OFFPC_ITS ---
Vital Signs 01/05/25 13:15 01/05/25 13:54 Height 5 ft 6 in Weight 209 lb BMI 33.7 BP 130/90 H 130/86 Blood Pressure Location Lt brachial Lt brachial Position Sitting Sitting Pulse 74 Pulse Source Pulse Oximeter Pulse Oximetry (%) 98 Oxygen Delivery Method Room Air Intake Visit Reasons: 4 months f/up Allergies Sulfa (Sulfonamide Antibiotics) [SULFA(SULFONAMIDE ANTIBIOTICS)] Allergy (Unknown, Verified 09/10/24 09:12) UNKNOWN, Rash, hives Medication List - Last Reconciled 01/05/25 by Yordan Romano [facility] blood-glucose meter (FreeStyle Lite Meter kit) As directed FreeStyle Lite Strips (blood sugar diagnostic) Test blood sugar twice a day NS lancets (FreeStyle Lancets) Test blood sugar twice a day Levoxyl (levothyroxine) 150 mcg PO DAILY NS losartan 25 mg PO DAILY lovastatin 40 mg PO QPM Tobacco use date assessed: 12/11/23 Dental Screening Dental Screen Date: 12/11/23 HPI 4 months f/up HPI Details Chief Complaint Follow-up for diabetes management History of Present Illness The patient is a 34-year-old male presenting for a follow-up regarding his diabetes management. He denies polyuria, polydipsia, neuropathy, chest pain, and shortness of breath. Blood sugar levels are regularly monitored and reportedly well controlled with an A1c of 6.3%. He acknowledges triglyceride elevation and mild anemia, alongside a history of fatty liver disease with elevated liver enzymes. Further, he has a slightly elevated microalbumin level while on an angiotensin receptor saad. Home blood pressure readings are typically in the 120s/130s over 70s to low 80s. Additionally, the patient feels mildly depressed since his father's recent passing yet denies severe psychiatric symptoms. He understands the necessity of lifestyle modifications, including exercise and dietary adjustments. Social History - Reports intention to increase outdoor activities due to favorable weather. - Engages in blood pressure monitoring a t home with readings noted. - Acknowledges adherence to dietary and exercise recommendations. Health Maintenance - Plans to undergo routine eye examinati on. - Regular blood sugar monitoring, report s A1c of 6.3%. - Discouragement from alcohol considerin liver health. - Encouraged to engage in increased phys ical activity and improved dietary habits. Review of Systems - Endocrinologic: Denies polyuria, polyd ipsia, neuropathy. - Cardiovascular: Denies chest pain, meme rtness of breath, irregular heartbeat. - Psychological: Reports mild depressive symptoms; denies suicidal and homicidal ideations. -denies any fevers, chills Physical Exam General: Cooperative, healthy appearing, comfortable, no acute distress and well developed. Obese. Orientation: Patient oriented x3 Limitations: No limitations Head: Normal to inspection Ears: Hearing grossly normal bilaterally Nose: Normal external nose present Face and sinus: Normal facial exam Eyes: Appearance normal, both eyes and all related structures Neck: Normal visual inspection and Yes full ROM Respiratory: Normal respiratory effort and able to speak in complete sentences. Clear to auscultation bilaterally Cardiovascular: Regular rate and rhythm. Normal S1 and S2 GI: Normal to inspection. Soft to palpation and nontender Skin: Onychomycosis noted bilaterally on feet, toenails Neuro: Patient oriented x3. Positive sensation bilat with use of monofilament. Otherwise, feet were intact bilaterally. Extremities: Normal to inspection Results Plan 1. 3%, and he should proceed with his sc heduled eye exam for diabetic complications. The addition of fenofibrate should aid in triglyceride management due to reported elevation. Observing his mild anemia is critical, while addressing his elevated liver enzymes through lifestyle modifications is emphasized, paralleling management for fatty liver disease. His nephrology referral aims to further evaluate his proteinuria while considering his current ARB therapy. Current depressive symptoms do not warrant intervention beyond supportive lifestyle recommendations, respecting the patient's readiness for therapy. Lastly, recommendations regarding onychomycosis focus on maintaining foot health.: Patient was informed and verbally consented to the use of an ambient scribe for clinic note documentation during this visit. Discussion Notes I discussed with the patient the status of his diabetes, emphasizing the importance of regular monitoring and the upcoming eye examination. We reviewed the rationale behind introducing fenofibrate to manage elevated triglycerides and reinforced the need for diet and exercise to address liver enzyme issues and potential non-alcoholic fatty liver disease progression. The decision to refer him to nephrology for proteinuria was explained, taking into account his current angiotensin receptor saad therapy. While recognizing his mild depressive symptoms, I respected his decision to forego current counseling, ensuring he understood the need for continued dialogue should symptoms intensify. I underscored the importance of lifestyle adjustments and overall health monitoring while sharing precautionary guidance concerning onychomycosis and general foot care. We agreed on maintaining open communication for future concerns or symptom changes. Patient Instructions - Continue regular blood sugar monitorin g and proceed with the eye exam as planned. - Start taking fenofibrate as prescribed to manage high triglycerides. - Follow diet and exercise recommendatio ns closely for liver health and weight management. - Expect nephrology to reach out for fur ther evaluation regarding kidney function. - Maintain good foot hygiene, especially due to onychomycosis. - Monitor depressive symptoms, and feel free to reach out if you need any further support. - Engage in more outdoor activities to s upport overall well-being. [facility] Medical History Fatty liver GERD (gastroesophageal reflux disease) Abnormal liver function tests Vitamin D deficiency Obesity Hyperparathyroidism Postablative hypothyroidism Surgical History H/O radioactive iodine thyroid ablation Hx of partial nephrectomy Family History Father Diabetes mellitus HTN (hypertension) Mother HTN (hypertension) Hyperlipidemia Maternal Grandmother Hypothyroidism Social History Household Members: Spouse and Children Household Members Other:: baby due in january Housing: House Alcohol intake: never Patient Tobacco Use Status: Never used Tobacco e-Cigarette/Vaping Use: Never Used Second Hand Smoke Exposure: No Current occupational status: employed Current occupation: [employer] Current occupational exposures/hazards: No Cognitive needs: No Hearing needs: No Vision needs: Yes Questionnaire PHQ-9 Over the last 2 weeks, how often have you been bothered by any of the following problems? 1. Little interest or pleasure in doing things: not at all 2. Feeling down, depressed, or hopeless: not at all 3. Trouble falling or staying asleep, or sleeping too much: not at all 4. Feeling tired or having little energy: not at all 5. Poor appetite or overeating: not at all 6. Feeling bad about yourself - or that you are a failure or have let yourself or your family down: not at all 7. Trouble concentrating on things, such as reading the newspaper or watching television: not at all 8. Moving or speaking so slowly that other people could have noticed. Or the opposite - being so fidgety or restless that you have been moving around a lot more than usual: not at all 9. Thoughts that you would be better off or of hurting yourself in some way: not at all Total score: 0 Depression Screening Interpretation: Negative (denies any si or hi) Depression Screening Done: Yes 11259 - PHQ-9 Billing: Yes Source: Developed by Drs. Alan Murillo, Wilma Conrad, Emmanuel Lr and colleagues, with an educational guillaume from [employer]. Thrive Questionnaire Date Thrive assessed: 08/17/24 I am a: Patient What is your living situation today?: I have a steady place to live Within the past 12 months, did the food you bought not last and you didn't have the money to get more?: Never true Within the past 12 months, did you worry whether your food would run out before you got money to buy more?: Never true Do you have trouble paying for medicines?: No Do you have trouble getting transportation to medical appointments?: No Do you have trouble paying your heating and electricity bill?: No Do you have trouble taking care of your child, family member or friend?: No Do you have trouble with day-to-day activities such as bathing, preparing meals, shopping, managing finances, etc.?: No Are you currently unemployed and looking for a job?: No Are you interested in more education?: No Please select the resources that you would like help with: None Currently or been in a relationship where the following occur: No concerns reported THRIVE Score: 0 AUDIT C Alcohol Use Questionnaire (AUDIT-C) 1. How often do you have a drink containing alcohol?: Never 2. How many drinks containing alcohol do you have on a typical day when you are drinking?: 1 or 2 3. How often do you have six or more drinks on one occasion?: Never Total Score: 0 Score Reviewed/Action Taken: Yes LEFTY-7 AMB Questionnaire LEFTY-7 Date LEFTY - 7 assessed: 08/23/24 Feeling nervous, anxious, or on edge: 0 = Not at all Not being able to stop or control worryin = Not at all Worrying too much about different things: 0 = Not at all Trouble relaxin = Not at all Being so restless that it is hard to sit still: 0 = Not at all Becoming easily annoyed or irritable: 0 = Not at all Feeling afraid as if something awful might happen: 0 = Not at all Total LEFTY-7 score (0-4 normal; 5-9 mild; 10-14 moderate; 15-21 severe): 0 Source: Developed by Drs. Alan Murillo, Wilma Conrad, Emmanuel Lr and colleagues, with an educational guillaume from [employer]. LEFTY-7 Assessment Billing LEFTY-7 Assessment Tool: LEFTY-7 Assessment 93854 Physical exam (Primary Care) Vital Signs: Last Vital Signs Pulse 74 01/05/25 13:15 BP 130/90 H 01/05/25 13:15 Pulse Ox 98 01/05/25 13:15 Oxygen Delivery Method Room Air 01/05/25 13:15 BMI result Body Mass Index 33.7 Tobacco/Smoking Status: Tobacco use Status Tobacco use date assessed 12/11/23 01/05/25 13:14 Patient Tobacco Use Status Never used Tobacco 01/05/25 13:14 e-Cigarette/Vaping Use Never Used 01/05/25 13:14 PHQ-9: PHQ-9 Score PHQ-9: Total score 0 01/05/25 13:40 Depression Screening Interpretation: Negative (denies any si or hi) Thrive Assessment: Date of Thrive Assessment Date Thrive assessed 08/17/24 01/05/25 13:14 Currently or been in a relationship where the following occur: No concerns reported Coding Level of Care Code Est Pt Level 4 (28866) Diagnoses Diabetes E11.9 Proteinuria R80.9 High triglycerides E78.1 Onychomycosis B35.1 Fatty liver K76.0 Additional Codes LEFTY-7 Assessment Billing - LEFTY-7 Assessment Tool: LEFTY-7 Assessment 25740 ([id number]) PHQ-9 - 35929 - PHQ-9 Billing: Yes ([id number]) Assessment & Plan Assessment & Plan (1) Diabetes: Code(s): E11.9 - Type 2 diabetes mellitus without complications Category: Medical (2) Proteinuria: Code(s): R80.9 - Proteinuria, unspecified Category: Medical (3) High triglycerides: Code(s): E78.1 - Pure hyperglyceridemia Category: Medical (4) Onychomycosis: Code(s): B35.1 - Tinea unguium Category: Medical (5) Fatty liver: Comment: Very pleasant 33-year-old Gent NAFLD Lipid panel Diabetes Overweight Fatty liver Negative viral serologies Code(s): K76.0 - Fatty (change of) liver, not elsewhere classified Category: Medical Plan . Orders: Orders Complete Blood Count Auto Diff Today E78.1 - Pure hyperglyceridemia Comprehensive [place]. Panel Fast Today E78.1 - Pure hyperglyceridemia TSH reflex Free T4 Today E78.1 - Pure hyperglyceridemia UA CC w/rflx Micro + Cult Today E78.1 - Pure hyperglyceridemia Lipid Panel Today E78.1 - Pure hyperglyceridemia Referrals Nephrology Referral E11.9 - Type 2 diabetes mellitus without complications, R80.9 - Proteinuria, unspecified Medications: New fenofibrate 120 mg PO DAILY 90 tabs 0RF
[2025-01-05 13:15] VITALS: BP 130/90; PULSE 74; O2SAT 98; BMI 33.7
[2025-01-05 13:54] VITALS: BP 130/86
== END 2025-01-05 13:59 | disposition home or self-care (01) ==
LOC: HO.HMCC 13:02
PROVIDERS: PCP Nurse Practitioner Family; Visit Provider Nurse Practitioner Family
DX: E11.9 Type 2 diabetes mellitus without complications (principal); R80.9 Proteinuria, unspecified; E78.1 Pure hyperglyceridemia; B35.1 Tinea unguium; K76.0 Fatty (change of) liver, not elsewhere classified

== ENCOUNTER → 2025-01-05 13:02 | Outpatient (BNVA) | payer OTHER, SELFPAY | PROVIDERS: PCP Nurse Practitioner Family; Visit Provider Nurse Practitioner Family | DX: E11.9 Type 2 diabetes mellitus without complications (principal); R80.9 Proteinuria, unspecified; E78.1 Pure hyperglyceridemia; B35.1 Tinea unguium; K76.0 Fatty (change of) liver, not elsewhere classified | CPT/HCPCS: 96127; 99212 ==

== ENCOUNTER 2025-01-06 09:05 | Outpatient (AMB) | payer OTHER, SELFPAY ==
[2025-01-06 09:33] VITALS: BP 124/80; PULSE 73; O2SAT 95
--- NOTE | 2025-01-06 09:33 | AM.OFFWIN_ITS ---
Intake Vital Signs 01/06/25 09:33 Weight 209 lb BP 124/80 Blood Pressure Location Rt brachial Position Sitting Pulse 73 Pulse Source Pulse Oximeter Pulse Oximetry (%) 95 Oxygen Delivery Method Room Air Intake Visit Reasons: EP Cough, mucus Patient Tobacco Use Status: Never used Tobacco Allergies Sulfa (Sulfonamide Antibiotics) [SULFA(SULFONAMIDE ANTIBIOTICS)] Allergy (Unknown, Verified 01/06/25 09:34) UNKNOWN, Rash, hives Do you need a note to return to daycare/school/sports/work: No HPI HPI Comments History of Present Illness Details 34 y/o male patient who presents to the walk in clinic with c/o on going productive cough on/off since the end of December. He was been using Mucinex with minimal relief. [facility] Medical History (Updated 01/06/25 @ 10:48 by Charla Klein NP) Acute respiratory disease Fatty liver GERD (gastroesophageal reflux disease) Abnormal liver function tests Vitamin D deficiency Obesity Hyperparathyroidism Postablative hypothyroidism Surgical History H/O radioactive iodine thyroid ablation Hx of partial nephrectomy Family History Father Diabetes mellitus HTN (hypertension) Mother HTN (hypertension) Hyperlipidemia Maternal Grandmother Hypothyroidism Social History Household Members: Spouse and Children Household Members Other:: baby due in january Housing: House Alcohol intake: never Patient Tobacco Use Status: Never used Tobacco e-Cigarette/Vaping Use: Never Used Second Hand Smoke Exposure: No Current occupational status: employed Current occupation: [employer] Current occupational exposures/hazards: No Cognitive needs: No Hearing needs: No Vision needs: Yes Review of Systems Const All systems reviewed & are unremarkable except as noted in HPI and below Physical Exam Vital Signs: Last Vital Signs Pulse 73 01/06/25 09:33 BP 124/80 01/06/25 09:33 Pulse Ox 95 01/06/25 09:33 Oxygen Delivery Method Room Air 01/06/25 09:33 Const General: no acute distress Nutritional Appearance: overweight Orientation/consciousness: patient oriented x3 HEENT Head: Yes normocephalic Ears: external ears normal and TM abnormal with fluid behind the TM General nose exam: Normal external nose present and Nasal discharge present Face and sinus: Yes sinuses nontender Mouth: moist mucous membranes Throat: Yes uvula midline Resp Effort & Inspection: normal respiratory effort and able to speak in complete sentences Auscultation: clear to auscultation bilaterally, no crackles, no rales, no rhonchi and no wheezes Cardio Heart sounds: S1 normal heart sound present and S2 normal heart sound present Neuro General: patient oriented x3 Assessment & Plan Assessment & Plan (1) Acute respiratory disease: Code(s): J06.9 - Acute upper respiratory infection, unspecified Plan: Ordered SARs Ordered cough medicine. (2) Cough: Code(s): R05.9 - Cough, unspecified Qualifiers: Cough type: acute Qualified Code(s): R05.1 - Acute cough Plan: Ordered SARs Ordered cough medicine. Orders: Orders SARS-CoV2/FLU/RSV Today J06.9 - Acute upper respiratory infection, unspecified Medications: New benzonatate 200 mg (2 x 100 mg) PO BID 60 caps 0RF R05.1 - Acute cough Coding Level of Care Code Est Pt Level 4 (46521) Diagnoses Acute respiratory disease J06.9 Acute cough R05.1 Cough type: acute Time Spent (min) 20
== END 2025-01-06 10:23 | disposition home or self-care (01) ==
PROVIDERS: PCP Nurse Practitioner Family; Visit Provider Nurse Practitioner Family
DX: J06.9 Acute upper respiratory infection, unspecified (principal); R05.1 Acute cough

== ENCOUNTER 2025-01-06 09:05 | Outpatient (REF) | payer OTHER, SELFPAY ==
[2025-01-06 14:17] LABS: Influenza A PCR NEGATIVE (Negative); Influenza B PCR NEGATIVE (Negative); Resp Syncy Virus RNA Qual PCR NEGATIVE (Negative); SARS COV2 PCR INHOUSE NEGATIVE (Negative)
== END 2025-01-06 09:06 | disposition home or self-care (01) ==
LOC: HO.LAB 09:05
PROVIDERS: PCP Nurse Practitioner Family; Visit Provider Nurse Practitioner Family
DX: J06.9 Acute upper respiratory infection, unspecified (principal); R05.1 Acute cough
CPT/HCPCS: 0241U; 99212

== ENCOUNTER 2025-01-20 14:19 | Outpatient (AMB) | payer OTHER, SELFPAY ==
--- NOTE | 2025-01-20 14:37 | HO.NEPHOV_ITS ---
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 He has diabetes for a long time. He denies polyuria, polydipsia, neuropathy, chest pain, and shortness of breath. Blood sugar levels are regularly monitored and reportedly well controlled with an A1c of 6.3%. He acknowledges triglyceride elevation and mild anemia, alongside a history of fatty liver disease with elevated liver enzymes. He has elevated microalbumin level. He has on angiotensin receptor saad. Home blood pressure readings are typically in the 120s/130s over 70s to low 80s. His recent serum creatinine is 1.11. He denies edema, urinary symptoms, hematuria, joint swelling, epistaxis, photosensitivity, skin rashes, sensori neural deafness. He does not take excess NSAID's and maintain good hydration. He has H/O renal cancer and had partial nephrectomy in the past ( Dr Luo). He has not had any Urology follow up or but his recent imaging ( CT) did not reveal any residual disease. [facility] Medical History Acute respiratory disease Fatty liver GERD (gastroesophageal reflux disease) Abnormal liver function tests Vitamin D deficiency Obesity Hyperparathyroidism Postablative hypothyroidism Surgical History H/O radioactive iodine thyroid ablation Hx of partial nephrectomy Family History Father Diabetes mellitus HTN (hypertension) Mother HTN (hypertension) Hyperlipidemia Maternal Grandmother Hypothyroidism Social History Household Members: Spouse and Children Household Members Other:: baby due in january Housing: House Alcohol intake: never Patient Tobacco Use Status: Never used Tobacco e-Cigarette/Vaping Use: Never Used Second Hand Smoke Exposure: No Current occupational status: employed Current occupation: [employer] Current occupational exposures/hazards: No Cognitive needs: No Hearing needs: No Vision needs: Yes Review of Systems Const All systems reviewed & are unremarkable except as noted in HPI and below Physical Exam Vital Signs: Last Vital Signs Pulse 84 01/20/25 14:38 BP 152/90 H 01/20/25 14:38 Pulse Ox 96 01/20/25 14:38 Oxygen Delivery Method Room Air 01/20/25 14:38 BMI result Body Mass Index 33.9 Const General: comfortable and no acute distress Orientation/consciousness: patient oriented x3 HEENT Head: Yes normocephalic Mouth: Normal oral and palatal mucosa present Eyes EOM: EOMs intact bilaterally Neck Neck: Yes supple Resp Auscultation: clear to auscultation bilaterally Cardio Jugular venous distension: no JVD Rate: regular rate GI Palpation (GI): Soft to palpation Auscultation: normal bowel sounds General: Yes no CVA tenderness Back/Spine/Pelvis Back: no CVA tenderness Skin General skin exam: no rashes or lesions noted Neuro General: patient oriented x3 and moves all extremities Extrem General: Yes no pedal edema Results Reviewed Nephrology Results: Hgb 14.7 g/dl (14.0-18.0) 01/29/25 WBC 7.0 X10*3/uL (4.8-10.8) 01/29/25 Plt Count 243 X10*3/uL (160-400) 01/29/25 Sodium 138 mmol/L (135-145) 01/29/25 Potassium 3.7 mmol/L (3.3-5.1) 01/29/25 Chloride 102 mmol/L (96-108) 01/29/25 Carbon Dioxide 24 mmol/L (22-29) 01/29/25 BUN 21 mg/dL (9-16) H 01/29/25 Creatinine 1.11 mg/dL (0.5-1.4) 01/29/25 Calcium 9.9 mg/dL (8.4-10.2) 01/29/25 Urine Protein 30 (1+) mg/dL (Neg-Trace) H 01/03/25 Urine Creatinine 194.39 mg/dL 01/03/25 Assessment & Plan Assessment & Plan (1) Renal cancer: Code(s): C64.9 - Malignant neoplasm of unspecified kidney, except renal pelvis Category: Medical Qualifiers: Laterality: unspecified laterality Qualified Code(s): C64.9 - Malignant neoplasm of unspecified kidney, except renal pelvis (2) Renal calculi: Code(s): N20.0 - Calculus of kidney Category: Medical (3) Proteinuria: Code(s): R80.9 - Proteinuria, unspecified Category: Medical Qualifiers: Proteinuria type: other Qualified Code(s): R80.8 - Other proteinuria (4) CKD (chronic kidney disease) stage 2, GFR 60-89 ml/min: Code(s): N18.2 - Chronic kidney disease, stage 2 (mild) Category: Medical Plan Rosendo has H/O renal cell cancer and had undergone partial nephrectomy. I ordered a follow up CT scan with IV contrast. He needs to follow up with Dr Luo. He has lost some GFR due to nephron loss after partial nephrectomy. He has DM with mild proteinuria. His Aic is good. He is on ARB. I increased his losartan to 25 mg bid. His BP is at goal. If there is no contraindication, he will benefit from low dose SGLT2i. He should avoid NSAID's and maintain good hydration. He should follow up with Dr Luo ( ? needs PET scan). All these have been explained in detail. Follow up labs ordered . Orders: Orders CT abdomen w IV con 01/20/25 C64.9 - Malignant neoplasm of unspecified kidney, except renal pelvis Blood Urea Nitrogen 2 Months C64.9 - Malignant neoplasm of unspecified kidney, except renal pelvis Protein Creatinine Ratio, Ur 2 Months C64.9 - Malignant neoplasm of unspecified kidney, except renal pelvis Creatinine 2 Months C64.9 - Malignant neoplasm of unspecified kidney, except renal pelvis Electrolytes 2 Months C64.9 - Malignant neoplasm of unspecified kidney, except renal pelvis Medications: Changed From losartan 25 mg PO DAILY 90 tabs 1RF To losartan 25 mg PO BID 60 tabs 6RF 30 days Coding Level of Care Code New Pt Level 4 (72801) Diagnoses Malignant neoplasm of kidney, unspecified laterality C64.9 Laterality: unspecified laterality Renal calculi N20.0 Other proteinuria R80.8 Proteinuria type: other CKD (chronic kidney disease) stage 2, GFR 60-89 ml/min N18.2
[2025-01-20 14:38] VITALS: BP 152/90; PULSE 84; O2SAT 96; BMI 33.9
== END 2025-01-20 15:14 | disposition home or self-care (01) ==
LOC: HO.HKAS 14:20
PROVIDERS: PCP Nurse Practitioner Family; Referring Provider Nurse Practitioner Family; Visit Provider Internal Medicine Nephrology
DX: C64.9 Malignant neoplasm of unspecified kidney, except renal pelvis (principal); N20.0 Calculus of kidney; R80.8 Other proteinuria; N18.2 Chronic kidney disease, stage 2 (mild)
CPT/HCPCS: 99204

== ENCOUNTER → 2025-01-20 14:19 | Outpatient (BNVA) | payer OTHER, SELFPAY | PROVIDERS: PCP Nurse Practitioner Family; Referring Provider Nurse Practitioner Family; Visit Provider Internal Medicine Nephrology | DX: C64.9 Malignant neoplasm of unspecified kidney, except renal pelvis (principal); R80.8 Other proteinuria; N20.0 Calculus of kidney; N18.2 Chronic kidney disease, stage 2 (mild) | CPT/HCPCS: 99202 ==

== ENCOUNTER 2025-01-28 12:03 | Outpatient (AMB) | payer OTHER, SELFPAY ==
--- NOTE | 2025-01-28 13:24 | MHC.OFFWIV ---
Intake Vital Signs 01/28/25 13:36 Weight 210 lb BP 136/90 H Blood Pressure Location Lt brachial Position Sitting Pulse 63 Pulse Source Pulse Oximeter Temp 98.1 F Temp Source Oral Pulse Oximetry (%) 98 Oxygen Delivery Method Room Air Intake Visit Reasons: EP Pain in lower RT abd [phone] (car) Intake Note: Patient here for right sided abdominal pain around appendix area. Patient Tobacco Use Status: Never used Tobacco Allergies Sulfa (Sulfonamide Antibiotics) [SULFA(SULFONAMIDE ANTIBIOTICS)] Allergy (Unknown, Verified 01/28/25 13:24) UNKNOWN, Rash, hives Do you need a note to return to daycare/school/sports/work: No HPI HPI Comments History of Present Illness Details History of Present Illness - The patient is a 34-year-old male presenting with abdominal pain. - Pain initiated in the morning, characterized as sharp, waking the patient from sleep, localized to the right lower abdomen. - The patient describes a sensation of increased heat, reports normal appetite, and absence of gastrointestinal symptoms such as nausea, vomiting, diarrhea, and fever. Moving his bowels normally. - Urination frequency has increased, yet without any dysuria or visible blood in urine; previous tests noted proteinuria, prompting a nephrological referral. - Relevant surgical history includes a left partial nephrectomy due to kidney stones and a detected renal mass. Physical Exam General: Cooperative, healthy appearing, comfortable, no acute distress and well developed Orientation: Patient oriented x3 Limitations: No limitations Head: Normal to inspection Ears: Hearing grossly normal bilaterally Nose: Normal External nose present Face and sinus: Normal facial exam Eyes: Appearance normal, both eyes and all related structures Neck: Normal visual inspection and Yes full ROM Respiratory: Normal respiratory effort and able to speak in complete sentences. GI: soft, some ttp suprapubic right side, otherwise normal exam, no guarding, negative mcburneys negative murphys Skin: No rashes or lesions noted Neuro: Patient oriented x3 Extremities: Normal to inspection [facility] Medical History (Updated 01/28/25 @ 13:48 by Avril Pino PA-C) Acute respiratory disease Fatty liver GERD (gastroesophageal reflux disease) Abnormal liver function tests Vitamin D deficiency Obesity Hyperparathyroidism Postablative hypothyroidism Surgical History H/O radioactive iodine thyroid ablation Hx of partial nephrectomy Family History Father Diabetes mellitus HTN (hypertension) Mother HTN (hypertension) Hyperlipidemia Maternal Grandmother Hypothyroidism Social History Household Members: Spouse and Children Household Members Other:: baby due in january Housing: House Alcohol intake: never Patient Tobacco Use Status: Never used Tobacco e-Cigarette/Vaping Use: Never Used Second Hand Smoke Exposure: No Current occupational status: employed Current occupation: [employer] Current occupational exposures/hazards: No Cognitive needs: No Hearing needs: No Vision needs: Yes Review of Systems Const All systems reviewed & are unremarkable except as noted in HPI and below Physical Exam Vital Signs: Last Vital Signs Temp 98.1 F 01/28/25 13:36 Pulse 63 01/28/25 13:36 BP 136/90 H 01/28/25 13:36 Pulse Ox 98 01/28/25 13:36 Oxygen Delivery Method Room Air 01/28/25 13:36 Results AMB Urinalysis, Automated UA Leukoctes 0 Roxanna/uL Last Edit by Rosa Chicas CMA on 01/28/25 13:52 UA Nitrite Negative Last Edit by Rosa Chicas CMA on 01/28/25 13:52 UA Urobilinogen 0.2 mg/dL Last Edit by Rosa Chicas CMA on 01/28/25 13:52 UA Protein 15 mg/dL Last Edit by Rosa Chicas, JUAN CARLOS on 01/28/25 13:52 UA pH 6.0 Last Edit by Rosa Chicas, JUAN CARLOS on 01/28/25 13:52 UA Blood 0 Otilio/uL Last Edit by Rosa Chicas, JUAN CARLOS on 01/28/25 13:52 UA Specific Commerce 1.030 Last Edit by Rosa Chicas CMA on 01/28/25 13:52 UA Ketone Negative Last Edit by Rosa Chicas CMA on 01/28/25 13:52 UA Bilirubin 0 mg/dL Last Edit by Rosa Chicas, JUAN CARLOS on 01/28/25 13:52 UA Glucose 0 mg/dL Last Edit by Rosa Chicas CMA on 01/28/25 13:52 Assessment & Plan Assessment & Plan (1) Right lower quadrant abdominal pain: Code(s): R10.31 - Right lower quadrant pain Plan: VSS, pt well appearing and PE remarkable for only slight ttp of right sided suprapubic area. A urinalysis will be performed to explore the increased frequency of urination, bearing in mind the possibility of a urinary tract infection. Given the patient's proteinuria and previous nephrectomy, ongoing monitoring of renal function is essential. UA is neg leuks, neg nitrites, + protein, negative blood. Given the negative McBurney's pt ability to maintain normal PO intake, appendicitis seems unlikely, yet not conclusively ruled out. The patient will be advised to watch for any escalation in symptoms, fever, increasing pain, n/v/d that may require prompt reevaluation. In which case, he should go to the ED. Patient was informed and verbally consented to the use of an ambient scribe for clinic note documentation during this visit. Orders: Orders AMB Urinalysis Automated Today Z13.9 - Encounter for screening, unspecified Coding Level of Care Code Est Pt Level 3 (74593) Diagnoses Right lower quadrant abdominal pain R10.31
[2025-01-28 13:36] VITALS: BP 136/90; PULSE 63; TEMP 36.7; O2SAT 98
== END 2025-01-28 13:59 | disposition home or self-care (01) ==
PROVIDERS: PCP Nurse Practitioner Family; Visit Provider Physician Assistant
DX: Z13.9 Encounter for screening, unspecified (principal); R10.31 Right lower quadrant pain

== ENCOUNTER → 2025-01-28 12:03 | Outpatient (BNVA) | payer OTHER, SELFPAY | PROVIDERS: PCP Nurse Practitioner Family; Visit Provider Physician Assistant | DX: R10.31 Right lower quadrant pain (principal) | CPT/HCPCS: 81003; 99212 ==

== ENCOUNTER 2025-01-29 00:24 | Emergency (ER) | payer OTHER, SELFPAY ==
--- NOTE | ~2025-01-29 | CT_ITS ---
CLINICAL HISTORY: Right lower quadrant pain CT abdomen and pelvis without contrast Comparison: None Findings: No consolidation or effusion. The liver is enlarged and there is diffuse fatty infiltration. The spleen, adrenal glands, pancreas, and gallbladder are unremarkable. There are a few nonobstructing right renal calculi delete sentence there is a 2 mm nonobstructing right renal calculus. No hydronephrosis of either kidney. No ureteral stones. Urinary bladder is decompressed. No bowel obstruction, pneumoperitoneum, or pneumatosis. Pelvic contents unremarkable. Normal appendix. The bones are intact. IMPRESSION: No acute findings. Hepatomegaly and diffuse fatty infiltration. This document has been electronically signed by: Nic Pat MD on 01/29/2025 02:35:08
[2025-01-29 00:28] VITALS: BP 154/72; PULSE 87; RESP 17; TEMP 36.6; O2SAT 98; BMI 33.3
--- NOTE | 2025-01-29 00:46 | ED_ITS ---
HPI - Abdominal Pain General Chief Complaint: Abdominal Pain Stated Complaint: appendix pain, nauseous Time Seen by Provider: 01/29/25 00:45 Source: patient Mode of arrival: ambulatory Limitations: no limitations History of Present Illness ED Provider: HPI narrative: Patient's history of fatty liver comes here for pain in the right lower abdomen for last 3 days been comes and goes slight nausea today no vomiting does have dysuria and frequency for last 3 days no fever no chills headache cat scan done in 12/28 for right upper quadrant pain no kidney stone were seen at that time Related Data Previous Rx's ?Medication ?Instructions ?Recorded FreeStyle Lite Strips (blood sugar #200 ea 01/01/24 diagnostic) blood-glucose meter (FreeStyle #1 ea 01/01/24 Lite Meter kit) lancets 28 gauge (FreeStyle #200 ea 01/05/24 Lancets) lovastatin 40 mg tablet 40 mg PO QPM #90 tabs 10/28/24 fenofibric acid 105 mg tablet 105 mg PO DAILY #90 tabs 01/06/25 Levoxyl 150 mcg tablet 150 mcg PO DAILY #90 tabs 01/13/25 (levothyroxine) losartan 25 mg tablet 25 mg PO BID 30 days #60 tabs 01/20/25 Allergies Allergy/AdvReac Type Severity Reaction Status Date / Time Sulfa (Sulfonamide Allergy Unknown UNKNOWN, Verified 01/29/25 00:30 Antibiotics) Rash, hives [SULFA(SULFONAMIDE ANTIBIOTICS)] Review of Systems Review of Systems Yes all other systems are reviewed and are negative PMFSH Past Medical History Medical History Acute respiratory disease Fatty liver GERD (gastroesophageal reflux disease) Abnormal liver function tests Vitamin D deficiency Obesity Hyperparathyroidism Postablative hypothyroidism Surgical History H/O radioactive iodine thyroid ablation Hx of partial nephrectomy Family History Family History Father Diabetes mellitus HTN (hypertension) Mother HTN (hypertension) Hyperlipidemia Maternal Grandmother Hypothyroidism Social History Social History Household Members: Spouse and Children Household Members Other:: baby due in january Housing: House Alcohol intake: never Patient Tobacco Use Status: Never used Tobacco e-Cigarette/Vaping Use: Never Used Second Hand Smoke Exposure: No Current occupational status: employed Current occupation: [employer] Current occupational exposures/hazards: No Cognitive needs: No Hearing needs: No Vision needs: Yes Physical Exam ED Vital Signs: Vital Signs - 24 hr 01/29/25 00:28 01/29/25 03:30 Temperature 97.8 F 97.8 F Pulse Rate 87 78 Respiratory Rate 17 16 Blood Pressure 154/72 H 147/77 H Pulse Oximetry 98 98 Oxygen Delivery Method Room Air Room Air BMI result Body Mass Index 33.3 Appearance: Alert. Oriented X3. No acute distress. Eyes: PERRLA, No Nystagmus ENT: Pharynx normal. Oral Mucosa moist Neck: Normal inspection. Neck supple. CVS: Normal heart rate and rhythm. Pulses normal. Respiratory: No respiratory distress. Equal air entry bilateral, no wheezing/rales/rhonchi Abdomen: Soft and deep tenderness right lower quadrant no rebound tenderness or guarding Bowel sounds are present, no mass palpable, no CVA tenderness Skin: Skin warm and dry. Normal skin color. Normal skin turgor. Extremities: No lower extremity edema. No calf tenderness Neuro: Oriented X 3. No motor deficit. No sensory deficit.No cerebellar signs , cranial nerves II-XII intact Medical Decision Making Medical Decision Making [facility] Narrative: Patient with nonspecific right lower abdominal pain normal WBC count patient does have history of constipation likely the cause no previous history of gallstones no history of diverticulitis, CT scan negative for appendicitis Differential Diagnosis Differential Diagnoses: The differential diagnosis associated with the presentation includes Diverticulitis/appendicitis Lab Data [facility] Lab Attestation statement: I reviewed the patient's lab results. 01/29/25 00:52 01/29/25 00:52 Labs: Lab Results 01/29/25 Range/Units 00:52 WBC 7.0 (4.8-10.8) X10*3/uL RBC 5.07 (4.60-5.80) X10*6/uL Hgb 14.7 (14.0-18.0) g/dl Hct 40.7 L (42.0-52.0) % MCV 80.3 (80.0-98.0) fL MCH 29.0 (27.0-33.0) pg MCHC 36.1 H (31.0-36.0) g/dl RDW 13.0 (11.0-16.0) % Plt Count 243 (160-400) X10*3/uL MPV 10.9 (9.4-12.4) fL Immature Gran % (Auto) 0.3 (0.0-0.4) % Neut % (Auto) 42.6 L (45-73) % Lymph % (Auto) 45.1 H (20-40) % Anderson % (Auto) 8.4 (2-11) % Eos % (Auto) 3.0 (0-4) % Baso % (Auto) 0.6 (0-2) % Lymph # (Auto) 3.2 (1.2-4.9) X10*3/uL Anderson # (Auto) 0.6 (0.1-1.2) X10*3/uL Eos # (Auto) 0.2 (0.0-0.4) X10*3/uL Baso # (Auto) 0.0 (0.0-0.2) X10*3/uL Abs Immat Gran (auto) 0.02 (0.00-0.03) X10*3/uL Absolute Neuts (auto) 3.0 (2.0-8.3) x10*3/uL Absolute Nucleated RBC 0.000 (0.0-0.012) X10*3/uL Nucleated RBC % (auto) 0.0 (0.0-0.2) /100WBC Sodium 138 (135-145) mmol/L Potassium 3.7 (3.3-5.1) mmol/L Chloride 102 (96-108) mmol/L Carbon Dioxide 24 (22-29) mmol/L Anion Gap 16 (12-20) BUN 21 H (9-16) mg/dL Creatinine 1.11 (0.5-1.4) mg/dL Estim Creat Clear Calc 101.8 Estimated GFR > 60 Random Glucose 227 H (60-115) mg/dL Calcium 9.9 D (8.4-10.2) mg/dL Total Bilirubin 1.6 H (0.0-1.0) mg/dL AST 65 H (5-37) U/L ALT 109 H (0-40) U/L Alkaline Phosphatase 65 (39-117) U/L Total Protein 9.0 H (6.5-8.0) g/dL Albumin 4.6 (3.5-5.0) g/dL Lipase 26 (8-78) U/L Discharge Plan Discharge Clinical Impression: Abdominal pain Patient Disposition: Home, Self-Care Instructions: Abdominal Pain (ED) Additional Instructions: Cause of abdominal pain is likely from fatty liver Appendix is normal Avoid carbohydrate diet Drink plenty of fluids Prescriptions: No Action (DME) FreeStyle Lite Strips Strip See Rx Instructions .Route Qty: 200 1RF Rx Instructions: Test blood sugar twice a day (DME) blood-glucose meter [FreeStyle Lite Meter] Kit See Rx Instructions .Route Qty: 1 0RF Rx Instructions: As directed (DME) lancets [FreeStyle Lancets] 28 gauge misc See Rx Instructions .Route Qty: 200 1RF Rx Instructions: Test blood sugar twice a day lovastatin 40 mg tablet 40 mg PO QPM Qty: 90 1RF fenofibric acid 105 mg tablet 105 mg PO DAILY Qty: 90 1RF levothyroxine [Levoxyl] 150 mcg tablet 150 mcg PO DAILY Qty: 90 1RF losartan 25 mg tablet 25 mg PO BID 30 Days Qty: 60 6RF Interventions: ED Discharge Assessment Last Done: 01/29/25 03:30 Discharge Date/Time: 01/29/25 03:30 Print Language: Sinhala
[2025-01-29 01:08] LABS: Basophils Percent Auto 0.6 % (0-2); Eosinophils Absolute Auto 0.2 X10*3/uL (0.0-0.4); Hematocrit 40.7 % (42.0-52.0); Hemoglobin 14.7 g/dl (14.0-18.0); Imm Gran Abs Auto 0.02 X10*3/uL (0.00-0.03); Imm Gran Pct Auto 0.3 % (0.0-0.4); Lymphocytes Absolute Auto 3.2 X10*3/uL (1.2-4.9); Lymphocytes Percent Auto 45.1 % (20-40); MANUAL DIFF FLAG NO; Mean Corpuscular HGB Conc 36.1 g/dl (31.0-36.0); Mean Corpuscular Volume 80.3 fL (80.0-98.0); Mean Platelet Volume 10.9 fL (9.4-12.4); Monocytes Absolute Auto 0.6 X10*3/uL (0.1-1.2); Monocytes Percent Auto 8.4 % (2-11); Neutrophils Percent Auto 42.6 % (45-73); Platelet Count 243 X10*3/uL (160-400); Red Blood Count 5.07 X10*6/uL (4.60-5.80)
[2025-01-29 01:33] LABS: Alanine Aminotransferase 109 U/L (0-40); Albumin Level 4.6 g/dL (3.5-5.0); Alkaline Phosphatase 65 U/L (39-117); Anion Gap 16 (12-20); Aspartate Amino Transferase 65 U/L (5-37); Bilirubin Total 1.6 mg/dL (0.0-1.0); Blood Urea Nitrogen 21 mg/dL (9-16); Calcium 9.9 mg/dL (8.4-10.2); Carbon Dioxide 24 mmol/L (22-29); Chloride 102 mmol/L (96-108); Creatinine Clr Calc Pharmacy 101.8; Estimated Glomerular Filt Rate > 60; Glucose Random 227 mg/dL (60-115); Lipase 26 U/L (8-78); Potassium 3.7 mmol/L (3.3-5.1); Sodium 138 mmol/L (135-145)
[2025-01-29 03:30] VITALS: BP 147/77; PULSE 78; RESP 16; TEMP 36.6; O2SAT 98
== END 2025-01-29 03:30 | disposition home or self-care (01) ==
PROVIDERS: Emergency Provider Internal Medicine; PCP Nurse Practitioner Family
DX: R10.2 Pelvic and perineal pain (principal); R11.0 Nausea; R10.31 Right lower quadrant pain; R30.0 Dysuria; R35.0 Frequency of micturition
CPT/HCPCS: 36415; 74176; 80053; 83690; 85025; 99282; 99284

== ENCOUNTER → 2025-01-29 01:25 | Outpatient (BNV) | payer OTHER, SELFPAY | PROVIDERS: Emergency Provider Internal Medicine; PCP Nurse Practitioner Family; Visit Provider Radiology Diagnostic Radiology | DX: R16.0 Hepatomegaly, not elsewhere classified (principal); K76.0 Fatty (change of) liver, not elsewhere classified | CPT/HCPCS: 74176 ==

== ENCOUNTER 2025-04-15 15:28 | Outpatient (AMB) | payer OTHER, SELFPAY ==
--- NOTE | 2025-04-15 15:31 | A.OFFVIS_ITS ---
Intake Visit Reasons: history of renal cancer Intake Note: New Patient is present for Phx Renal Cancer Urology Rx:none Blood Thinners:none Imaging completed: ABD CT 01/29/25 Glove Turner And Former Required: No Accompanied by: Self / Same As Patient Allergies Sulfa (Sulfonamide Antibiotics) (SULFA(SULFONAMIDE ANTIBIOTICS)) Allergy (Unknown, Verified 04/15/25 15:36) UNKNOWN, Rash, hives HPI Comments Details: Renal cancer Doing well otherwise They present for continued followup and management. The renal mass was diagnosed incidentally, during evaluation for, flank pain. Prior treatment(s) included partial nephrectomy 01/20 - robotic Dr Luo/Salvatore. Staging of initial cancer T1a, with no positive lymph nodes, without vena cava involvement. The diagnosis was renal cell carcinoma, Grade II. Current symptoms include hematuria No dysuria No fever No chills No Recent labs include 07/22 Cr 1.3 07/23 Cr 1.3 01/23 Cr 1.3 - 08/25 1.2 Follow up imaging includes 07/22 , abdominal CT scan, which shows, stable post intervention changes 01/22 , renal US stable postoperative changes 01/23 , renal US, stable changes - 08/25 chest x-ray normal Planned theraputic plan further surveillance with imaging and laboratory investigations appropriate for pathology findings and patient performance status PFSH Medical History Acute respiratory disease Fatty liver GERD (gastroesophageal reflux disease) Abnormal liver function tests Vitamin D deficiency Obesity Hyperparathyroidism Postablative hypothyroidism Surgical History H/O radioactive iodine thyroid ablation Hx of partial nephrectomy Family History Father Diabetes mellitus HTN (hypertension) Mother HTN (hypertension) Hyperlipidemia Maternal Grandmother Hypothyroidism Social History Household Members: Spouse and Children Household Members Other:: baby due in january Housing: House Alcohol intake: never Patient Tobacco Use Status: Never used Tobacco e-Cigarette/Vaping Use: Never Used Second Hand Smoke Exposure: No Current occupational status: employed Current occupation: [employer] Current occupational exposures/hazards: No Cognitive needs: No Hearing needs: No Vision needs: Yes Coding
== END 2025-04-15 16:11 | disposition home or self-care (01) ==
LOC: HO.HUSH 15:29
PROVIDERS: PCP Nurse Practitioner Family; Visit Provider Urology
DX: Z13.9 Encounter for screening, unspecified (principal)

== ENCOUNTER → 2025-04-15 15:28 | Outpatient (BNVA) | payer OTHER, SELFPAY | PROVIDERS: PCP Nurse Practitioner Family; Visit Provider Urology | DX: R10.9 Unspecified abdominal pain (principal) | CPT/HCPCS: 81003 ==

== ENCOUNTER 2025-04-26 14:02 | Outpatient (REF) | payer OTHER, SELFPAY ==
[2025-04-26 18:27] LABS: Anion Gap 13 (12-20); Blood Urea Nitrogen 15 mg/dL (9-16); Carbon Dioxide 27 mmol/L (22-29); Chloride 105 mmol/L (96-108); Estimated Glomerular Filt Rate > 60; Potassium 4.1 mmol/L (3.3-5.1); Sodium 141 mmol/L (135-145)
[2025-04-26 18:34] LABS: Protein/Creatinine Ratio, Ur 0.06 (<0.2); Total Protein Urine Random 12 mg/dL (<12)
== END 2025-04-26 14:03 | disposition home or self-care (01) ==
LOC: HO.HKASLDS 14:02
PROVIDERS: Visit Provider Internal Medicine Nephrology
DX: C64.9 Malignant neoplasm of unspecified kidney, except renal pelvis (principal)
CPT/HCPCS: 36415; 80051; 82565; 82570; 84156; 84520

== ENCOUNTER 2025-04-28 15:15 | Outpatient (AMB) | payer OTHER, SELFPAY ==
--- NOTE | 2025-04-28 15:22 | HO.NEPHOV ---
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 He has diabetes for a long time. He denies polyuria, polydipsia, neuropathy, chest pain, and shortness of breath. Blood sugar levels are regularly monitored and reportedly well controlled with an A1c of 6.3%. He acknowledges triglyceride elevation and mild anemia, alongside a history of fatty liver disease with elevated liver enzymes. He has elevated microalbumin level. He has on angiotensin receptor saad. Home blood pressure readings are typically in the 120s/130s over 70s to low 80s. His recent serum creatinine is 1.09. He denies edema, urinary symptoms, hematuria, joint swelling, epistaxis, photosensitivity, skin rashes, sensori neural deafness. He does not take excess NSAID's and maintain good hydration. He has H/O renal cancer and had partial nephrectomy in the past ( Dr Luo). He had a Urology follow up [facility] Medical History Acute respiratory disease Fatty liver GERD (gastroesophageal reflux disease) Abnormal liver function tests Vitamin D deficiency Obesity Hyperparathyroidism Postablative hypothyroidism Surgical History H/O radioactive iodine thyroid ablation Hx of partial nephrectomy Family History Father Diabetes mellitus HTN (hypertension) Mother HTN (hypertension) Hyperlipidemia Maternal Grandmother Hypothyroidism Social History Household Members: Spouse and Children Household Members Other:: baby due in january Housing: House Alcohol intake: never Patient Tobacco Use Status: Never used Tobacco e-Cigarette/Vaping Use: Never Used Second Hand Smoke Exposure: No Current occupational status: employed Current occupation: [employer] Current occupational exposures/hazards: No Cognitive needs: No Hearing needs: No Vision needs: Yes Review of Systems Const All systems reviewed & are unremarkable except as noted in HPI and below Physical Exam Vital Signs: Last Vital Signs Pulse 74 04/28/25 15:23 BP 124/90 H 04/28/25 15:23 Pulse Ox 96 04/28/25 15:23 Oxygen Delivery Method Room Air 04/28/25 15:23 BMI result Body Mass Index 32.1 Const General: comfortable and no acute distress Orientation/consciousness: patient oriented x3 HEENT Head: Yes normocephalic Mouth: Normal oral and palatal mucosa present Eyes EOM: EOMs intact bilaterally Neck Neck: Yes supple Resp Auscultation: clear to auscultation bilaterally Cardio Jugular venous distension: no JVD Rate: regular rate GI Palpation (GI): Soft to palpation Auscultation: normal bowel sounds General: Yes no CVA tenderness Back/Spine/Pelvis Back: no CVA tenderness Skin General skin exam: no rashes or lesions noted Neuro General: patient oriented x3 and moves all extremities Extrem General: Yes no pedal edema Results Reviewed Nephrology Results: Hgb, (14.0-18.0) 14.7 g/dl 01/29/25 WBC, (4.8-10.8) 7.0 X10*3/uL 01/29/25 Plt Count, (160-400) 243 X10*3/uL 01/29/25 Sodium, (135-145) 141 mmol/L 04/26/25 Potassium, (3.3-5.1) 4.1 mmol/L 04/26/25 Chloride, (96-108) 105 mmol/L 04/26/25 Carbon Dioxide, (22-29) 27 mmol/L 04/26/25 BUN, (9-16) 15 mg/dL 04/26/25 Creatinine, (0.5-1.4) 1.09 mg/dL 04/26/25 Calcium, (8.4-10.2) 9.9 mg/dL Δ 01/29/25 Urine Creatinine 187.70 mg/dL 04/26/25 Protein/Creatinin Ratio, (<0.2) 0.06 04/26/25 Renal US 01/21/23 Assessment & Plan Assessment & Plan (1) Proteinuria: Code(s): R80.9 - Proteinuria, unspecified Category: Medical Qualifiers: Proteinuria type: other Qualified Code(s): R80.8 - Other proteinuria (2) Renal calculi: Code(s): N20.0 - Calculus of kidney Category: Medical (3) CKD (chronic kidney disease) stage 2, GFR 60-89 ml/min: Code(s): N18.2 - Chronic kidney disease, stage 2 (mild) Category: Medical Plan Rosendo has H/O renal cell cancer and had undergone partial nephrectomy. He needs to follow up with Dr Luo. He has lost some GFR due to nephron loss after partial nephrectomy. He has DM with mild proteinuria. His Aic is good. He is on ARB. His BP is at goal. If there is no contraindication, he will benefit from low dose SGLT2i. He should avoid NSAID's and maintain good hydration. He should follow up with Dr Luo. All these have been explained in detail. Follow up labs ordered Orders: Orders Electrolytes 6 Months N18.2 - Chronic kidney disease, stage 2 (mild), N20.0 - Calculus of kidney, R80.8 - Other proteinuria Blood Urea Nitrogen 6 Months N18.2 - Chronic kidney disease, stage 2 (mild), N20.0 - Calculus of kidney, R80.8 - Other proteinuria Protein Creatinine Ratio, Ur 6 Months N18.2 - Chronic kidney disease, stage 2 (mild), N20.0 - Calculus of kidney, R80.8 - Other proteinuria Creatinine 6 Months N18.2 - Chronic kidney disease, stage 2 (mild), N20.0 - Calculus of kidney, R80.8 - Other proteinuria UA and rflx microscopic 6 Months N18.2 - Chronic kidney disease, stage 2 (mild), N20.0 - Calculus of kidney, R80.8 - Other proteinuria Coding Level of Care Code Est Pt Level 4 (35273) Diagnoses Other proteinuria R80.8 Proteinuria type: other Renal calculi N20.0 CKD (chronic kidney disease) stage 2, GFR 60-89 ml/min N18.2
[2025-04-28 15:23] VITALS: BP 124/90; PULSE 74; O2SAT 96; BMI 32.1
== END 2025-04-28 15:45 | disposition home or self-care (01) ==
LOC: HO.HKAS 15:16
PROVIDERS: PCP Nurse Practitioner Family; Visit Provider Internal Medicine Nephrology
DX: R80.8 Other proteinuria (principal); N20.0 Calculus of kidney; N18.2 Chronic kidney disease, stage 2 (mild)
CPT/HCPCS: 99214

== ENCOUNTER → 2025-04-28 15:15 | Outpatient (BNVA) | payer OTHER, SELFPAY | PROVIDERS: PCP Nurse Practitioner Family; Visit Provider Internal Medicine Nephrology | DX: R80.8 Other proteinuria (principal); N20.0 Calculus of kidney; N18.2 Chronic kidney disease, stage 2 (mild); Z90.5 Acquired absence of kidney | CPT/HCPCS: 99212 ==

== ENCOUNTER 2025-05-11 16:03 | Outpatient (AMB) | payer OTHER, SELFPAY ==
[2025-05-11 16:08] VITALS: BP 130/78; PULSE 72; RESP 16; O2SAT 98; BMI 32.7
--- NOTE | 2025-05-11 16:08 | A.OFFPC_ITS ---
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 Budget Required: No Accompanied by: Self / Same As Patient Allergies Sulfa (Sulfonamide Antibiotics) (SULFA(SULFONAMIDE ANTIBIOTICS)) Allergy (Unknown, Verified 04/28/25 15:23) UNKNOWN, Rash, hives Medication List - Last Reconciled 05/11/25 by Yordan Romano [employer] ENGINE[employer]IEF- blood-glucose meter (FreeStyle Lite Meter kit) As directed FreeStyle Lite Strips (blood sugar diagnostic) Test blood sugar twice a day NS lancets (FreeStyle Lancets) Test blood sugar twice a day Levoxyl (levothyroxine) 150 mcg PO DAILY NS losartan 25 mg PO BID 30 days lovastatin 40 mg PO QPM Tobacco use date assessed: 05/11/25 Dental Screening Dental Screen Date: 05/11/25 Did you have a dental visit in the last 12 months?: Yes Did you have a dental problem in the last 6 months where you did not have access to dental care?: No Was dental information given to patient?: Patient has dentist HPI 4m follow up HPI Details Chief Complaint The patient presents for follow-up management of diabetes and hypothyroidism. History of Present Illness The patient is a 34-year-old male presenting with diabetes mellitus and hypothyroidism. He denies constipation, fatigue, excessive hair loss, weight gain, or neuropathy, and his eye exams are up to date. He regularly sees a label operator, and his hemoglobin A1c is 6.8%, reflecting effective diabetes management. Social History Health Maintenance - Regular nephrology follow-up for [place] health - Dietary management to maintain glycemi c control Review of Systems - Gastrointestinal: Denies constipation - General: Denies fatigue, weight gain - Neurological: Denies numbness, tinglin g, neuropathy Physical Exam General: Cooperative, healthy appearing, comfortable, no acute distress and well developed Orientation: Patient oriented x3 Limitations: No limitations Head: Normal to inspection Ears: Hearing grossly normal bilaterally Nose: Normal external nose present Face and sinus: Normal facial exam Eyes: Appearance normal, both eyes and all related structures Neck: Normal visual inspection and Yes full ROM Respiratory: Normal respiratory effort and able to speak in complete sentences. Clear to auscultation bilaterally Cardiovascular: Regular rate and rhythm. Normal S1 and S2 GI: Normal to inspection. Soft to palpation and nontender Skin: No rashes or lesions noted Neuro: Patient oriented x3 Extremities: Normal to inspection, + sensation with use of monofilament, feet intact bilat Results - Labs: Hemoglobin A1c 6.8% Plan The patient will continue dietary management to maintain his hemoglobin A1c at 6.8%. Regular nephrology follow-ups are recommended to monitor kidney health. Laboratory tests, including a TSH test, will be performed to evaluate thyroid function. Discussion Notes I discussed with the patient the importance of maintaining his current dietary regimen to keep his hemoglobin A1c at 6.8%. We also talked about the necessity of regular nephrology visits to ensure optimal kidney function. I explained that we will conduct a TSH test to monitor his thyroid status. Patient Instructions - Continue with your current diet to elvira p your blood sugar levels stable. - Attend regular appointments with your label operator. - Follow up for lab tests, including a t hyroid check. [facility] Medical History Acute respiratory disease Fatty liver GERD (gastroesophageal reflux disease) Abnormal liver function tests Vitamin D deficiency Obesity Hyperparathyroidism Postablative hypothyroidism Surgical History H/O radioactive iodine thyroid ablation Hx of partial nephrectomy Family History Father Diabetes mellitus HTN (hypertension) Mother HTN (hypertension) Hyperlipidemia Maternal Grandmother Hypothyroidism Social History Household Members: Spouse and Children Household Members Other:: baby due in january Housing: House Alcohol intake: never Patient Tobacco Use Status: Never used Tobacco e-Cigarette/Vaping Use: Never Used Second Hand Smoke Exposure: No Current occupational status: employed Current occupation: [employer] Current occupational exposures/hazards: No Cognitive needs: No Hearing needs: No Vision needs: Yes Questionnaire PHQ-9 Over the last 2 weeks, how often have you been bothered by any of the following problems? 1. Little interest or pleasure in doing things: not at all 2. Feeling down, depressed, or hopeless: not at all 3. Trouble falling or staying asleep, or sleeping too much: not at all 4. Feeling tired or having little energy: not at all 5. Poor appetite or overeating: not at all 6. Feeling bad about yourself - or that you are a failure or have let yourself or your family down: not at all 7. Trouble concentrating on things, such as reading the newspaper or watching television: not at all 8. Moving or speaking so slowly that other people could have noticed. Or the opposite - being so fidgety or restless that you have been moving around a lot more than usual: not at all 9. Thoughts that you would be better off or of hurting yourself in some way: not at all Total score: 0 Depression Screening Interpretation: Negative (denies any si or hi) Depression Screening Done: Yes 33408 - PHQ-9 Billing: Yes Source: Developed by Drs. Alan Murillo, Wilma Conrad, Emmanuel Lr and colleagues, with an educational guillaume from [email or web address]. Thrive Questionnaire Date Thrive assessed: 12/29/24 I am a: Patient What is your living situation today?: I have a steady place to live Within the past 12 months, did the food you bought not last and you didn't have the money to get more?: Never true Within the past 12 months, did you worry whether your food would run out before you got money to buy more?: Never true Do you have trouble paying for medicines?: No Do you have trouble getting transportation to medical appointments?: No Do you have trouble paying your heating and electricity bill?: No Do you have trouble taking care of your child, family member or friend?: No Do you have trouble with day-to-day activities such as bathing, preparing meals, shopping, managing finances, etc.?: No Are you currently unemployed and looking for a job?: No Are you interested in more education?: No Please select the resources that you would like help with: None Currently or been in a relationship where the following occur: No concerns reported THRIVE Score: 0 LEFTY-7 AMB Questionnaire LEFTY-7 Date LEFTY - 7 assessed: 05/11/25 Feeling nervous, anxious, or on edge: 0 = Not at all Not being able to stop or control worryin = Not at all Worrying too much about different things: 0 = Not at all Trouble relaxin = Not at all Being so restless that it is hard to sit still: 0 = Not at all Becoming easily annoyed or irritable: 0 = Not at all Feeling afraid as if something awful might happen: 0 = Not at all Total LEFTY-7 score (0-4 normal; 5-9 mild; 10-14 moderate; 15-21 severe): 0 Source: Developed by Drs. lAan Murillo, Wilma Conrad, Emmanuel Lr and colleagues, with an educational guillaume from [email or web address]. LEFTY-7 Assessment Billing LEFTY-7 Assessment Tool: LEFTY-7 Assessment 51111 Physical exam (Primary Care) Vital Signs: Last Vital Signs Pulse 72 05/11/25 16:08 Resp 16 05/11/25 16:08 BP 130/78 05/11/25 16:08 Pulse Ox 98 05/11/25 16:08 Oxygen Delivery Method Room Air 05/11/25 16:08 BMI result Body Mass Index 32.7 Tobacco/Smoking Status: Tobacco use Status Tobacco use date assessed 05/11/25 05/11/25 16:15 Patient Tobacco Use Status Never used Tobacco 05/11/25 16:13 e-Cigarette/Vaping Use Never Used 05/11/25 16:13 PHQ-9: PHQ-9 Score PHQ-9: Total score 0 05/11/25 16:15 Depression Screening Interpretation: Negative (denies any si or hi) Thrive Assessment: Date of Thrive Assessment Date Thrive assessed 12/29/24 05/11/25 16:13 Currently or been in a relationship where the following occur: No concerns repo rted Results AMB Hemoglobin A1c AMB Hemoglobin A1c 6.8 % Last Edit by Sharon Garcia MA on 05/11/25 16:20 Results Reviewed Results Reviewed: Laboratory Last Values Hgb A1c (Clinic) 6.8 % (4.0-6.0) H 05/11/25 16:07 Coding Level of Care Code Est Pt Level 3 (48213) Diagnoses Diabetes E11.9 Postablative hypothyroidism E89.0 Additional Codes LEFTY-7 Assessment Billing - LEFTY-7 Assessment Tool: LEFTY-7 Assessment 74359 ([id number]) PHQ-9 - 74365 - PHQ-9 Billing: Yes ([id number]) Assessment & Plan Assessment & Plan (1) Diabetes: Code(s): E11.9 - Type 2 diabetes mellitus without complications Category: Medical (2) Postablative hypothyroidism: Code(s): E89.0 - Postprocedural hypothyroidism Category: Medical Plan . Orders: Orders Complete Blood Count Auto Diff Today E11.9 - Type 2 diabetes mellitus without complications, E89.0 - Postprocedural hypothyroidism Comprehensive Flushing. Panel Fast Today E11.9 - Type 2 diabetes mellitus without complications, E89.0 - Postprocedural hypothyroidism UA CC w/rflx Micro + Cult Today E11.9 - Type 2 diabetes mellitus without complications, E89.0 - Postprocedural hypothyroidism AMB Hemoglobin A1c Today Z13.9 - Encounter for screening, unspecified TSH reflex Free T4 Today E11.9 - Type 2 diabetes mellitus without complications, E89.0 - Postprocedural hypothyroidism Lipid Panel Today E11.9 - Type 2 diabetes mellitus without complications, E89.0 - Postprocedural hypothyroidism
== END 2025-05-11 16:49 | disposition home or self-care (01) ==
LOC: HO.HMCC 16:04
PROVIDERS: PCP Nurse Practitioner Family; Visit Provider Nurse Practitioner Family
DX: E11.9 Type 2 diabetes mellitus without complications (principal); E89.0 Postprocedural hypothyroidism; Z13.9 Encounter for screening, unspecified

== ENCOUNTER → 2025-05-11 16:03 | Outpatient (BNVA) | payer OTHER, SELFPAY | PROVIDERS: PCP Nurse Practitioner Family; Visit Provider Nurse Practitioner Family | DX: E11.9 Type 2 diabetes mellitus without complications (principal); E03.9 Hypothyroidism, unspecified | CPT/HCPCS: 83036; 96127; 99212 ==

== ENCOUNTER 2025-09-28 08:23 | Outpatient (AMB) | payer OTHER, SELFPAY ==
[2025-09-28 08:32] VITALS: BP 124/78; PULSE 63; RESP 16; O2SAT 98; BMI 31.9
--- NOTE | 2025-09-28 08:32 | A.OFFPC_ITS ---
Vital Signs 09/28/25 08:32 Height 5 ft 7 in Weight 204 lb BMI 31.9 BP 124/78 Blood Pressure Location Lt brachial Position Sitting Respiration 16 Pulse 63 Pulse Source Pulse Oximeter Pulse Oximetry (%) 98 Oxygen Delivery Method Room Air Intake Visit Reasons: PE, overdue Field Representative/Health Education Required: No Accompanied by: Self / Same As Patient Allergies Sulfa (Sulfonamide Antibiotics) (SULFA(SULFONAMIDE ANTIBIOTICS)) Allergy (Unknown, Verified 04/28/25 15:23) UNKNOWN, Rash, hives Tobacco use date assessed: 09/28/25 Dental Screening Dental Screen Date: 09/28/25 Did you have a dental visit in the last 12 months?: Yes Did you have a dental problem in the last 6 months where you did not have access to dental care?: No Was dental information given to patient?: Patient has dentist HPI PE, overdue HPI Details History of Present Illness The patient is a 35 year old male presenting for a physical exam. He reports feeling well overall. He has a history of diabetes, and his most recent A1c was 8.8%, an increase from a previous value of 6.8%. He denies any symptoms of neuropathy, polyuria, or polydipsia. The patient reports that his eye exam is up to date. He is also obese. Health Maintenance A diabetic foot exam was performed today and findings were noted. The patient will receive his Tdap vaccination today. A prescription for Prevnar 20 was written for the patient to obtain at his pharmacy. sees a career consultant and urologist Social History - Diet: Diet was emphasized as part of h is diabetes management. Review of Systems - Constitutional: Reports feeling well o verall. - Cardiovascular: Denies chest pain. - Respiratory: Denies shortness of breat h. - Gastrointestinal: Denies abdominal kerri n, blood in stool, constipation, and diarrhea. - Endocrine: Denies polyuria or polydips ia. - Neurological: Denies neuropathies. - Psychiatric: Denies suicidal or homici milka ideation. Physical Exam General: Cooperative, healthy appearing, comfortable, no acute distress and well developed, obese Orientation: Patient oriented x3 Limitations: No limitations Head: Normal to inspection Ears: Hearing grossly normal bilaterally Nose: Normal external nose present Face and sinus: Normal facial exam Eyes: Appearance normal, both eyes and all related structures Neck: Normal visual inspection and Yes full ROM Respiratory: Normal respiratory effort and able to speak in complete sentences. Clear to auscultation bilaterally Cardiovascular: Regular rate and rhythm. Normal S1 and S2 GI: Normal to inspection. Soft to palpation and nontender : Testicles without masses/lesions and no hernias appreciated Skin: No rashes or lesions noted Neuro: Patient oriented x3 Extremities: Normal to inspection, onychomycosis noted on foot exam, positive sensation with use of monofilament to feet, and able to feel 128 hertz tuning fork vibration Results - Labs: Hemoglobin A1c is 8.8%. - This is an increase from his previous result of 6.8%. Plan 1. Type 2 Diabetes Mellitus The patient's A1c has increased to 8.8% from a previous 6.8%. Dietary management was emphasized. He will be started on Glipizide 5 mg extended release. The patient acknowledged understanding of hypoglycemia symptoms and their correction. 2. Obesity The patient is obese. Diet was discussed to address this. 3. Onychomycosis Onychomycosis was noted bilaterally on foot exam. No specific treatment plan was discussed at this time. Discussion Notes I discussed with the patient that his A1c has risen to 8.8% from 6.8%. I emphasized the importance of his diet in managing his diabetes. I will be starting him on Glipizide 5 mg extended release. I confirmed that he is aware of the symptoms of hypoglycemia and knows how to correct it. We also discussed vaccinations, and he will receive his Tdap today and has a prescription for Prevnar 20 to get at his pharmacy. Patient Instructions - It is very important to watch your t to help control your blood sugar. - Start taking Glipizide 5 mg extended-r elease once a day as prescribed. - Be aware of the signs of low blood sug ar (hypoglycemia), such as shakiness, sweating, or confusion, and know how to treat it. - You will receive a Tdap vaccine today in the office. - Please go to your pharmacy to get the Prevnar 20 vaccine. [facility] Medical History Acute respiratory disease Fatty liver GERD (gastroesophageal reflux disease) Abnormal liver function tests Vitamin D deficiency Obesity Hyperparathyroidism Postablative hypothyroidism Surgical History H/O radioactive iodine thyroid ablation Hx of partial nephrectomy Family History Father Diabetes mellitus HTN (hypertension) Mother HTN (hypertension) Hyperlipidemia Maternal Grandmother Hypothyroidism Social History Household Members: Spouse and Children Household Members Other:: baby due in january Housing: House Alcohol intake: never Patient Tobacco Use Status: Never used Tobacco e-Cigarette/Vaping Use: Never Used Second Hand Smoke Exposure: No Current occupational status: employed Current occupation: [employer] Current occupational exposures/hazards: No Cognitive needs: No Hearing needs: No Vision needs: Yes Questionnaire PHQ-9 Over the last 2 weeks, how often have you been bothered by any of the following problems? 1. Little interest or pleasure in doing things: not at all 2. Feeling down, depressed, or hopeless: not at all 3. Trouble falling or staying asleep, or sleeping too much: not at all 4. Feeling tired or having little energy: not at all 5. Poor appetite or overeating: not at all 6. Feeling bad about yourself - or that you are a failure or have let yourself or your family down: not at all 7. Trouble concentrating on things, such as reading the newspaper or watching television: not at all 8. Moving or speaking so slowly that other people could have noticed. Or the opposite - being so fidgety or restless that you have been moving around a lot more than usual: not at all 9. Thoughts that you would be better off or of hurting yourself in some way: not at all Total score: 0 Depression Screening Interpretation: Negative Depression Screening Done: Yes 07539 - PHQ-9 Billing: Yes Source: Developed by Drs. Alan Murillo, Wilma Conrad, Emmanuel Lr and colleagues, with an educational guillaume from [employer]. Thrive Questionnaire Date Thrive assessed: 12/29/24 I am a: Patient What is your living situation today?: I have a steady place to live Within the past 12 months, did the food you bought not last and you didn't have the money to get more?: Never true Within the past 12 months, did you worry whether your food would run out before you got money to buy more?: Never true Do you have trouble paying for medicines?: No Do you have trouble getting transportation to medical appointments?: No Do you have trouble paying your heating and electricity bill?: No Do you have trouble taking care of your child, family member or friend?: No Do you have trouble with day-to-day activities such as bathing, preparing meals, shopping, managing finances, etc.?: No Are you currently unemployed and looking for a job?: No Are you interested in more education?: No Currently or been in a relationship where the following occur: No concerns reported THRIVE Score: 0 LEFTY-7 AMB Questionnaire LEFTY-7 Date LEFTY - 7 assessed: 05/11/25 Source: Developed by Drs. Alan Murillo, Wilma Conrad, Emmanuel Lr and colleagues, with an educational guillaume from [employer]. Physical exam (Primary Care) Vital Signs: Last Vital Signs Pulse 63 09/28/25 08:32 Resp 16 09/28/25 08:32 BP 124/78 09/28/25 08:32 Pulse Ox 98 09/28/25 08:32 Oxygen Delivery Method Room Air 09/28/25 08:32 BMI result Body Mass Index 31.9 Tobacco/Smoking Status: Tobacco use Status Tobacco use date assessed 09/28/25 09/28/25 08:35 Patient Tobacco Use Status Never used Tobacco 09/28/25 08:35 e-Cigarette/Vaping Use Never Used 09/28/25 08:35 PHQ-9: PHQ-9 Score PHQ-9: Total score 0 09/28/25 09:01 Depression Screening Interpretation: Negative Thrive Assessment: Date of Thrive Assessment Date Thrive assessed 12/29/24 09/28/25 08:35 Currently or been in a relationship where the following occur: No concerns reported Office Procedures Diabetic Foot Exam Details: + sensation with use of monofilament, + sensation with use of tuning fork 128 G9226 - Diabetic Foot Exam Results AMB Hemoglobin A1c AMB Hemoglobin A1c 8.8 % Last Edit by Sharon Garcia MA on 09/28/25 09:13 Immunizations Boostrix Tdap 2.5 Lf unit-8 mcg-5 Lf/0.5 mL intramuscular syringe Performing Provider: DIONNA Gaytan Performing Location: [facility] [place] Administered by: Sharon Garcia MA on 09/28/25 09:13 Dose Route Admin Location Dispensed Lot Number Expiration Date NDC Surgical Resident 0.5 mL IM Right Deltoid 0.5 mL [id number] 03/17/28 06660-145-55 [employer] Total Dispensed Waste 0.5 mL 0 % VIS Given Date VIS Provided VIS Publication Date 09/28/25 Single Vaccine 21 Eligibility Eligibility Date Funding Source Not [facility] Eligible 09/28/25 Private Results Reviewed Results Reviewed: Laboratory Last Values Hgb A1c (Clinic) 8.8 % (4.0-6.0) H 09/28/25 08:52 Coding Level of Care Code Est Pt Level 3 (39629) Est Pt Prev Care 18-39y(85657) Diagnoses Encounter for routine adult physical exam with abnormal findings Z00. Diabetes E11.9 CPT Codes Diabetic Foot Exam - CPT: G9226 - Diabetic Foot Exam ([id number]) Additional Codes PHQ-9 - 77040 - PHQ-9 Billing: Yes ([id number]) Assessment & Plan Assessment & Plan (1) Encounter for routine adult physical exam with abnormal findings: Code(s): Z00.01 - Encounter for general adult medical examination with abnormal findings Category: Medical (2) Diabetes: Code(s): E11.9 - Type 2 diabetes mellitus without complications Category: Medical Plan . Orders: Orders AMB Hemoglobin A1c Today E11.9 - Type 2 diabetes mellitus without complications Complete Blood Count Auto Diff Today Z00.01 - Encounter for general adult medical examination with abnormal findings UA CC w/rflx Micro + Cult Today Z00.01 - Encounter for general adult medical examination with abnormal findings Comprehensive [place]. Panel Fast Today Z00.01 - Encounter for general adult medical examination with abnormal findings TSH reflex Free T4 Today Z00.01 - Encounter for general adult medical examination with abnormal findings Lipid Panel Today Z00.01 - Encounter for general adult medical examination with abnormal findings Microalbumin, Random (w Creat) Today E11.9 - Type 2 diabetes mellitus without complications TDaP Immunization Today Z23 - Encounter for immunization Medications: New glipizide ER 5 mg PO DAILY 30 tabs 3RF 30 days
== END 2025-09-28 09:37 | disposition home or self-care (01) ==
LOC: HO.HMCC 08:24
PROVIDERS: PCP Nurse Practitioner Family; Visit Provider Nurse Practitioner Family
DX: Z00.01 Encounter for general adult medical examination with abnormal findings (principal); E11.9 Type 2 diabetes mellitus without complications; Z23 Encounter for immunization

== ENCOUNTER 2025-09-28 08:23 | Outpatient (REF) | payer OTHER, SELFPAY ==
[2025-09-28 10:03] LABS: MANUAL DIFF FLAG NO
[2025-09-28 10:24] LABS: Hematocrit 42.2 % (42.0-52.0); Hemoglobin 14.8 g/dl (14.0-18.0); Imm Gran Abs Auto 0.02 X10*3/uL (0.00-0.03); Imm Gran Pct Auto 0.4 % (0.0-0.4); Lymphocytes Absolute Auto 1.8 X10*3/uL (1.2-4.9); Mean Corpuscular HGB Conc 35.1 g/dl (31.0-36.0); Mean Corpuscular Hemoglobin 27.6 pg (27.0-33.0); Mean Corpuscular Volume 78.6 fL (80.0-98.0); NRBC Abs Auto 0.000 X10*3/uL (0.0-0.012); NRBC Pct Auto 0.0 /100WBC (0.0-0.2); Platelet Count 226 X10*3/uL (160-400); Red Blood Count 5.37 X10*6/uL (4.60-5.80); White Blood Count 4.9 X10*3/uL (4.8-10.8)
[2025-09-28 10:54] LABS: Appearance Urine Clear; Glucose Urine UA Negative (Negative); PH 5.5 (5.0-9.0); Specific Gravity - Urine 1.025 (1.005-1.025); UMIC TRIGGER UACC YES
[2025-09-28 10:55] LABS: Alanine Aminotransferase 106 U/L (0-40); Albumin Level 4.9 g/dL (3.5-5.0); Alkaline Phosphatase 63 U/L (39-117); Anion Gap 13 (12-20); Aspartate Amino Transferase 84 U/L (5-37); Blood Urea Nitrogen 14 mg/dL (9-16); Calcium 9.5 mg/dL (8.4-10.2); Carbon Dioxide 25 mmol/L (22-29); Chloride 104 mmol/L (96-108); Cholesterol 165 mg/dL (<200); Estimated Glomerular Filt Rate > 60; HDL Cholesterol 29 mg/dL (>40); Potassium 3.9 mmol/L (3.3-5.1); Sodium 138 mmol/L (135-145); Total Protein 8.3 g/dL (6.5-8.0); Triglycerides 290 mg/dL (<150)
[2025-09-28 11:50] LABS: Microalbum/Creatinine Ratio Ur 35.3 ug/mg cr (<30)
== END 2025-09-28 08:24 | disposition home or self-care (01) ==
LOC: HO.HMGCLDS 08:23
PROVIDERS: PCP Nurse Practitioner Family; Visit Provider Nurse Practitioner Family
DX: Z00.01 Encounter for general adult medical examination with abnormal findings (principal); E11.9 Type 2 diabetes mellitus without complications; B35.1 Tinea unguium; E66.9 Obesity, unspecified; Z23 Encounter for immunization; Z68.31 Body mass index [BMI] 31.0-31.9, adult
CPT/HCPCS: 36415; 80053; 80061; 81001; 81003; 82043; 82570; 84443; 85025; 90471; 90715; 99212